=== PATIENT | male | born 1940 | race Caucasian/White ===

== ENCOUNTER 2016-06-17 03:21 | Inpatient (IN) | payer MEDICARE, OTHER ==
[2016-06-17] VITALS (10 sets, daily range): BP systolic 93–120; BP diastolic 55–80
[~2016-06-17] VITALS: Ht 182.9 cm; Wt 61.7 kg
--- NOTE | 2016-06-17 03:29 | Emergency Room Report ---
History of Present Illness General Chief Complaint: Dyspnea/Respdistress Source: Patient, Medical Record, EMS Present Illness HPI This is a 75-year-old male with a history of hypertension and CHF. He resided [facility]. He present with acute onset of shortness of breath that started tonight. Per EMS on arrival he was on nasal cannula 15 L. He was hypoxic. I place him on a mask and gave him a spray of nitroglycerin. Patient felt short of breath. No chest pain. Has chest pressure. No nausea no vomiting. No pain. Denies any other complaint. Worse with exertion. Allergies: Coded Allergies: GABAPENTIN (Verified Allergy, Unknown, 06/17/16) PREGABALIN (Verified Allergy, Unknown, 06/17/16) Patient History Past Medical History: see triage record, old chart reviewed, HTN, CAD, CHF Past Surgical History: other Pertinent Family History: none Social History: Denies: smoking Immunizations: other Reviewed Nursing Documentation: PMH: Agreed, PSxH: Agreed Review of Systems Eye: Denies: blurred vision, eye pain ENT: Denies: ear pain, nose congestion, throat swelling Respiratory: Reports: shortness of breath, Denies: cough Cardiovascular: Denies: chest pain, palpitations Gastrointestinal: Denies: abdominal pain, diarrhea, nausea, vomiting Musculoskeletal: Denies: back pain, joint pain Skin: Denies: rash Neurological: Denies: headache, numbness Endocrine: Denies: increased thirst, increased urine Hematologic/Lymphatic: Denies: easy bruising All Other Systems: negative except mentioned in HPI Physical Exam vitals with hypoxia Sp02 EP Interpretation: abnormal General Appearance: moderate distress, Chronically Ill Head: normocephalic, atraumatic Eyes: bilateral eye EOMI, bilateral eye PERRL ENT: hearing grossly normal, normal pharynx Neck: full range of motion, supple, no meningismus Respiratory: chest non-tender, decreased breath sounds, accessory muscle use, rales Cardiovascular #1: regular rate, rhythm, no murmur Gastrointestinal: normal bowel sounds, non tender, no mass, no organomegaly, no bruit, non-distended Musculoskeletal: back normal, other - Multiple pressure ulcers of the lower extremities. Neurologic: alert Psychiatric: mood/affect normal Skin: warm/dry Procedures Critical Care Time Critical Care Time Critical care is mandated in this patient who presented with respiratory distress from CHF. Patient require my urgent intervention to attenuate the risks of respiratory collapse which may lead to cardiovascular collapse and . Critical care time is 35 minutes excluding any reportable procedure. Critical care time included evaluation, multiple reevaluation, looking at old charts, interpreting laboratory and diagnostic data, discussing case with patient and family and consultants, and charting. Medical Decision Making Diagnostic Impression: Primary Impression: CHF exacerbation Qualified Codes: I50.9 - Heart failure, unspecified Additional Impressions: Acute respiratory failure with hypoxia Chronic kidney disease Qualified Codes: N18.9 - Chronic kidney disease, unspecified ER Course Patient presents with rest or distress and hypoxia. He has acute CHF on clinical exam and by laboratory data. He refuse the chest x-ray because he said he had many in the past. He is worried about getting cancer. He diuresed well with Lasix. Vitals are stable. We'll admit for further diuresis and monitoring. I will contact Dr. Buckley for admission. See no evidence of ACS, PE , dissection to name a few. Patient is competent to make decision to refuse chest x-ray. Lab Results Impression labs show elevated BNP EKG Diagnostic Results Rate: normal Rhythm: NSR ST Segments: no acute changes Rhythm Strip Diag. Results EP Interpretation: yes Rate: 65 Rhythm: NSR, no PVC's, no ectopy Chest X-Ray Diagnostic Results Findings: other - pt refused chest xrays Status: improved Disposition: ADMITTED INPATIENT Condition: Serious MATT COATS M.D. Jun 17, 2016 03:29
[2016-06-17] MEDS ORDERED: Aspirin Baby 81mg ORAL ONE (03:30)
[2016-06-17] MEDS ORDERED: Albuterol ud Inhalation HHN ONE (03:30)
[2016-06-17] MEDS ORDERED: COREG3.125 MG ORAL (03:38)
[2016-06-17] MEDS ORDERED: FUROSEMIDE20 M1 ORAL (03:38)
[2016-06-17] MEDS ORDERED: POTASSIUM GLUCO2 MEQ PO (03:38)
[2016-06-17] MEDS ORDERED: CRESTOR10 M2 ORAL (03:38)
[2016-06-17] MEDS ORDERED: CALCIUM MAGNES1 EAC2 PO (03:38)
[2016-06-17] MEDS ORDERED: NIACIN500 M3 PO (03:38)
[2016-06-17] MEDS ORDERED: COLACE100 MG ORAL (03:38)
[2016-06-17] MEDS ORDERED: VITAMIN B-12500 MC2 PO (03:38)
[2016-06-17] MEDS ORDERED: TAMSULOSIN HCL0.4 MG ORAL (03:38)
[2016-06-17] MEDS ORDERED: FOLIC ACID1 MG ORAL (03:38)
[2016-06-17] MEDS ORDERED: LEVOTHYROXINE100 MCG ORAL (03:38)
[2016-06-17] MEDS ORDERED: VITAMIN C250 MG ORAL (03:38)
[2016-06-17] MEDS ORDERED: ASPIR 8181 MG ORAL (03:38)
[2016-06-17] MEDS ORDERED: TYLENOL EXTRA500 MG ORAL (03:38)
[2016-06-17] MEDS ORDERED: MIRALAX17 G2 ORAL (03:38)
[2016-06-17] MEDS ORDERED: FERROUS SULFAT325 MG ORAL (03:38)
[2016-06-17 03:56] LABS: MEAN CORPUSCULAR HEMOGLOBIN 37.5 PG (27.0-31.0); MEAN CORPUSCULAR HGB CONC 37.8 G/DL (32.0-36.0); MEAN CORPUSCULAR VOLUME 99 FL (80-99); MEAN PLATELET VOLUME 10.9 FL (6.5-10.1); PLATELET COUNT 86 K/UL (150-450); RED BLOOD COUNT 3.25 M/UL (4.70-6.10); WHITE BLOOD COUNT 9.7 K/UL (4.8-10.8)
[2016-06-17 04:06] LABS: INR 1.3 (0.9-1.1); PROTHROMBIN TIME 13.2 SEC (9.30-11.50)
[2016-06-17 04:14] LABS: ALANINE AMINOTRANSFERASE 16 U/L (3-41); ALBUMIN/GLOBULIN RATIO 0.6 (1.0-2.7); ANION GAP 14 (5-15); ASPARTATE AMINO TRANSFERASE 20 U/L (5-40); CALCIUM 9.5 mg/dL (8.6-10.2); CARBON DIOXIDE 28 mEQ/L (20-30); CHLORIDE 97 mEQ/L (98-107); CREATININE 1.6 mg/dL (0.7-1.2); HEMOLYSIS 16; POTASSIUM 4.1 mEQ/L (3.4-4.9); SODIUM 139 mEQ/L (135-145); TOTAL PROTEIN 6.7 g/dL (6.6-8.7)
[2016-06-17 04:30] LABS: TROPONIN I < 0.30 ng/mL (<=0.30)
[2016-06-17 04:51] LABS: APPEARANCE,URINE CLEAR; KETONES,URINE NEGATIVE (NEGATIVE); PROTEIN,URINE 1+ (NEGATIVE)
[2016-06-17 04:52] LABS: BACTERIA,URINE FEW /HPF; LEUKOCYTE ESTERASE ,URINE NEGATIVE (NEGATIVE); NITRITE,URINE NEGATIVE (NEGATIVE); RBC,URINE 20-30 /HPF (0 - 0); SQUAMOUS EPITHELIAL CELL,UR FEW /LPF (NONE/OCC); UROBILINOGEN,URINE NORMAL MG/DL (0.0-1.0)
[2016-06-17 04:53] LABS: AMORPHOUS SEDIMENT,UR MODERATE /LPF
[2016-06-17] MEDS ORDERED: DuoNeb 0.5-3(2.5)mg/3ml neb HHN PRN ×2 (06:00→20:00)
[2016-06-17] MEDS ORDERED: Miralax 17gm pkt ORAL PRN ×2 (06:00→20:00)
[2016-06-17 07:13] LABS: CKMB 8.5 ng/mL (< 6.7)
[2016-06-17] MEDS: NovoLOG Insulin Flexpen SUBQ SCH ×4 (08:55→21:00)
[2016-06-17] MEDS ORDERED: Heparin 5000 units/ml inj SUBQ SCH (09:00)
[2016-06-17] MEDS ORDERED: Miralax 17gm pkt ORAL SCH (09:00)
--- NOTE | 2016-06-17 10:24 | Cardiology Progress Note ---
Assessment/Plan Assessment/Plan chf acute systolic cm mr phtn renal insuf s/p cardiorenal syndrome rbbbb dierutic moni acei if cr allow and if ok with renla coreg echo reviewed [id number] Objective Last 24 Hour Vital Signs Date Time Temp Pulse Resp B/P Pulse Ox O2 Delivery O2 Flow Rate FiO2 06/17/16 08:00 97.0 66 22 108/55 96 Nasal Cannula 5.0 06/17/16 07:06 63 15 109/73 100 Nasal Cannula 5.0 06/17/16 06:50 94.7 70 12 112/80 100 Nasal Cannula 5.0 40 06/17/16 06:03 94.7 70 12 112/80 100 Nasal Cannula 5.0 06/17/16 04:34 94.6 68 18 104/62 99 Nasal Cannula 5.0 06/17/16 03:48 65 16 95 Nasal Cannula 5.0 40 06/17/16 03:36 64 16 99 Non-Rebreather 15.0 100 06/17/16 03:30 68 20 Non-Rebreather 12.0 06/17/16 03:20 94.6 68 20 137/60 90 Room Air Intake and Output 06/16/16 06/17/16 19:00 07:00 Output Total 10 ml Balance -10 ml Output Urine Total 10 ml Laboratory Tests Test 06/17/16 03:40 06/17/16 04:10 White Blood Count 9.7 K/UL (4.8-10.8) Red Blood Count 3.25 M/UL (4.70-6.10) L Hemoglobin 12.2 G/DL (14.2-18.0) L Hematocrit 32.3 % (42.0-52.0) L Mean Corpuscular Volume 99 FL (80-99) Mean Corpuscular Hemoglobin 37.5 PG (27.0-31.0) H Mean Corpuscular Hemoglobin Concent 37.8 G/DL (32.0-36.0) H Red Cell Distribution Width 19.0 % (11.6-14.8) H Platelet Count 86 K/UL (150-450) L Mean Platelet Volume 10.9 FL (6.5-10.1) H Neutrophils (%) (Auto) % (45.0-75.0) Lymphocytes (%) (Auto) % (20.0-45.0) Monocytes (%) (Auto) % (1.0-10.0) Eosinophils (%) (Auto) % (0.0-3.0) Basophils (%) (Auto) % (0.0-2.0) Prothrombin Time 13.2 SEC (9.30-11.50) H Prothromb Time International Ratio 1.3 (0.9-1.1) H Activated Partial Thromboplast Time 40 SEC (23-33) H Sodium Level 139 mEQ/L (135-145) Potassium Level 4.1 mEQ/L (3.4-4.9) Chloride Level 97 mEQ/L (98-107) L Carbon Dioxide Level 28 mEQ/L (20-30) Anion Gap 14 (5-15) Blood Urea Nitrogen 58 mg/dL (7-23) H Creatinine 1.6 mg/dL (0.7-1.2) H Estimat Glomerular Filtration Rate mL/min (>60) Glucose Level 187 mg/dL (74-106) H Calcium Level 9.5 mg/dL (8.6-10.2) Total Bilirubin 1.8 mg/dL (0.0-1.2) H Direct Bilirubin 1.0 mg/dL (0.1-0.3) H Aspartate Amino Transf (AST/SGOT) 20 U/L (5-40) Alanine Aminotransferase (ALT/SGPT) 16 U/L (3-41) Alkaline Phosphatase 283 U/L (40-129) H Total Creatine Kinase 38 U/L (38-174) Creatine Kinase MB 8.5 ng/mL (< 6.7) H Creatine Kinase MB Relative Index 22.3 Troponin I < 0.30 ng/mL (<=0.30) Pro-B-Type Natriuretic Peptide 82639 pg/mL (0-450) H Total Protein 6.7 g/dL (6.6-8.7) Albumin 2.6 g/dL (3.5-5.2) L Globulin 4.1 g/dL Albumin/Globulin Ratio 0.6 (1.0-2.7) L Urine Color Yellow Urine Appearance Clear Urine pH 5.0 (4.5-8.0) Urine Specific [place] 1.010 (1.005-1.035) Urine Protein 1+ (NEGATIVE) H Urine Glucose (UA) Negative (NEGATIVE) Urine Ketones Negative (NEGATIVE) Urine Occult Blood 3+ (NEGATIVE) H Urine Nitrite Negative (NEGATIVE) Urine Bilirubin Negative (NEGATIVE) Urine Urobilinogen Normal MG/DL (0.0-1.0) Urine Leukocyte Esterase Negative (NEGATIVE) Urine RBC 20-30 /HPF (0 - 0) H Urine WBC 2-4 /HPF (0 - 0) Urine Squamous Epithelial Cells Few /LPF (NONE/OCC) Urine Amorphous Sediment Moderate /LPF (NONE) H Urine Bacteria Few /HPF (NONE) TAL DEE Jun 17, 2016 10:24
--- NOTE | 2016-06-17 10:32 | Consultation ---
History of Present Illness General Date patient seen: Jun 17, 2016 Chief Complaint: Dyspnea/Respdistress Referring physician: Dr. Irwin Reason for Consultation: Dyspnea Present Illness HPI 75-year-old male with a history of hypertension and CHF, [facility] in by paramedics with CC of acute onset of shortness of breath that started tonight. Per EMS on arrival he was on nasal cannula 15 L. He was hypoxic. He was placed on a mask and given spray of nitroglycerin in ER. He was recently discharged fro [facility]. He refused CXR in ER because of exposure to radiation. Pt improved somewhat with initial Lasix. Allergies: Coded Allergies: GABAPENTIN (Verified Allergy, Unknown, 06/17/16) PREGABALIN (Verified Allergy, Unknown, 06/17/16) Medication History Scheduled Ascorbic Acid* (Vitamin C*), Unknown Dose ORAL DAILY, (Reported) Aspirin* (Aspir 81*), Unknown Dose ORAL DAILY, (Reported) Carvedilol (Coreg), Unknown Dose ORAL EVERY 12 HOURS, (Reported) Docusate Sodium* (Colace*), 100 MG ORAL DAILY, (Reported) Ferrous Sulfate* (Ferrous Sulfate*), 325 MG ORAL DAILY, (Reported) Folic Acid* (Folic Acid*), 1 MG ORAL DAILY, (Reported) Furosemide* (Lasix*), Unknown Dose ORAL DAILY, (Reported) Levothyroxine Sodium* (Levothyroxine Sodium*), 100 MCG ORAL DAILY, (Reported) Polyethylene Glycol 3350* (Miralax*), 17 GM ORAL DAILY, (Reported) Rosuvastatin Calcium* (Crestor*), 10 MG ORAL DAILY, (Reported) Tamsulosin Hcl (Tamsulosin Hcl*), 0.4 MG ORAL BEDTIME, (Reported) Scheduled PRN Acetaminophen* (Tylenol Extra Strength*), 650 MG ORAL Q6H PRN for Mild Pain/ Temp > 100.5, (Reported) Miscellaneous Medications Ca Carb & Gluc/Mag Ox & Gluc (Calcium Magnesium Caplet), Unknown Dose PO, ( Reported) Cyanocobalamin (Vitamin B-12) (Vitamin B-12), 500 MCG PO, (Reported) Niacin (Niacin), 500 MG PO, (Reported) Potassium Gluconate (Potassium Gluconate), Unknown Dose PO, (Reported) Patient History Healthcare decision maker Resuscitation status Advanced Directive on File Past Medical/Surgical History Past Medical/Surgical History: (1) CHF (congestive heart failure) (2) Chronic kidney disease Review of Systems Respiratory: Reports: DIAZ, shortness of breath Skin: Reports: rash All Other Systems: negative except mentioned in HPI Physical Exam General Appearance: WD/WN, no apparent distress Lines, tubes and drains: peripheral, central line HEENT: normocephalic, anicteric Neck: non-tender Respiratory/Chest: rhonchi - left, rhonchi - right Cardiovascular/Chest: normal peripheral pulses, normal rate Genitourinary/Rectal: normal genital exam Last 24 Hour Vital Signs Date Time Temp Pulse Resp B/P Pulse Ox O2 Delivery O2 Flow Rate FiO2 06/17/16 08:00 97.0 66 22 108/55 96 Nasal Cannula 5.0 06/17/16 07:06 63 15 109/73 100 Nasal Cannula 5.0 06/17/16 06:50 94.7 70 12 112/80 100 Nasal Cannula 5.0 40 06/17/16 06:03 94.7 70 12 112/80 100 Nasal Cannula 5.0 06/17/16 04:34 94.6 68 18 104/62 99 Nasal Cannula 5.0 06/17/16 03:48 65 16 95 Nasal Cannula 5.0 40 06/17/16 03:36 64 16 99 Non-Rebreather 15.0 100 06/17/16 03:30 68 20 Non-Rebreather 12.0 06/17/16 03:20 94.6 68 20 137/60 90 Room Air Intake and Output 06/16/16 06/17/16 19:00 07:00 Output Total 10 ml Balance -10 ml Output Urine Total 10 ml Laboratory Tests Test 06/17/16 03:40 06/17/16 04:10 White Blood Count 9.7 K/UL (4.8-10.8) Red Blood Count 3.25 M/UL (4.70-6.10) L Hemoglobin 12.2 G/DL (14.2-18.0) L Hematocrit 32.3 % (42.0-52.0) L Mean Corpuscular Volume 99 FL (80-99) Mean Corpuscular Hemoglobin 37.5 PG (27.0-31.0) H Mean Corpuscular Hemoglobin Concent 37.8 G/DL (32.0-36.0) H Red Cell Distribution Width 19.0 % (11.6-14.8) H Platelet Count 86 K/UL (150-450) L Mean Platelet Volume 10.9 FL (6.5-10.1) H Neutrophils (%) (Auto) % (45.0-75.0) Lymphocytes (%) (Auto) % (20.0-45.0) Monocytes (%) (Auto) % (1.0-10.0) Eosinophils (%) (Auto) % (0.0-3.0) Basophils (%) (Auto) % (0.0-2.0) Prothrombin Time 13.2 SEC (9.30-11.50) H Prothromb Time International Ratio 1.3 (0.9-1.1) H Activated Partial Thromboplast Time 40 SEC (23-33) H Sodium Level 139 mEQ/L (135-145) Potassium Level 4.1 mEQ/L (3.4-4.9) Chloride Level 97 mEQ/L (98-107) L Carbon Dioxide Level 28 mEQ/L (20-30) Anion Gap 14 (5-15) Blood Urea Nitrogen 58 mg/dL (7-23) H Creatinine 1.6 mg/dL (0.7-1.2) H Estimat Glomerular Filtration Rate mL/min (>60) Glucose Level 187 mg/dL (74-106) H Calcium Level 9.5 mg/dL (8.6-10.2) Total Bilirubin 1.8 mg/dL (0.0-1.2) H Direct Bilirubin 1.0 mg/dL (0.1-0.3) H Aspartate Amino Transf (AST/SGOT) 20 U/L (5-40) Alanine Aminotransferase (ALT/SGPT) 16 U/L (3-41) Alkaline Phosphatase 283 U/L (40-129) H Total Creatine Kinase 38 U/L (38-174) Creatine Kinase MB 8.5 ng/mL (< 6.7) H Creatine Kinase MB Relative Index 22.3 Troponin I < 0.30 ng/mL (<=0.30) Pro-B-Type Natriuretic Peptide 18823 pg/mL (0-450) H Total Protein 6.7 g/dL (6.6-8.7) Albumin 2.6 g/dL (3.5-5.2) L Globulin 4.1 g/dL Albumin/Globulin Ratio 0.6 (1.0-2.7) L Urine Color Yellow Urine Appearance Clear Urine pH 5.0 (4.5-8.0) Urine Specific [place] 1.010 (1.005-1.035) Urine Protein 1+ (NEGATIVE) H Urine Glucose (UA) Negative (NEGATIVE) Urine Ketones Negative (NEGATIVE) Urine Occult Blood 3+ (NEGATIVE) H Urine Nitrite Negative (NEGATIVE) Urine Bilirubin Negative (NEGATIVE) Urine Urobilinogen Normal MG/DL (0.0-1.0) Urine Leukocyte Esterase Negative (NEGATIVE) Urine RBC 20-30 /HPF (0 - 0) H Urine WBC 2-4 /HPF (0 - 0) Urine Squamous Epithelial Cells Few /LPF (NONE/OCC) Urine Amorphous Sediment Moderate /LPF (NONE) H Urine Bacteria Few /HPF (NONE) Height (Feet): 6 Weight (Pounds): 136 Medications Current Medications Medications (Trade) Dose Ordered Sig/Jazmyne Route PRN Reason Start Time Stop Time Status Last Admin Dose Admin Acetaminophen (Tylenol) 650 mg Q4H PRN ORAL Fever 06/17/16 06:00 07/17/16 05:59 Albuterol/ Ipratropium (DuoNeb 0.5-3(2.5)mg/3ml) 3 ml EVERY 4 HOURS PRN HHN Shortness of Breath 06/17/16 06:00 06/22/16 05:59 Carvedilol (Coreg) 6.25 mg EVERY 12 HOURS ORAL 06/17/16 09:00 07/17/16 08:59 Dextrose (Dextrose 50%) STAT PRN IV Hypoglycemia 06/17/16 06:00 07/17/16 05:59 Furosemide (Lasix) 40 mg EVERY 8 HOURS IV 06/17/16 06:00 07/17/16 05:59 Heparin Sodium (Porcine) (Heparin 5000 units/ml) 5,000 units EVERY 12 HOURS SUBQ 06/17/16 09:00 07/17/16 08:59 UNV Insulin Aspart (NovoLOG) BEFORE MEALS AND HS SUBQ 06/17/16 06:30 07/17/16 06:29 06/17/16 08:55 Ondansetron HCl (Zofran) 4 mg Q6H PRN IVP Nausea & Vomiting 06/17/16 06:00 07/17/16 05:59 Polyethylene Glycol (Miralax) 17 gm DAILY ORAL 06/17/16 09:00 07/17/16 08:59 Polyethylene Glycol (Miralax) 17 gm DAILYPRN PRN ORAL Constipation 06/17/16 06:00 07/17/16 05:59 Tamsulosin HCl (Flomax) 0.4 mg BEDTIME ORAL 06/17/16 21:00 07/17/16 20:59 Temazepam (Restoril) 15 mg HSPRN PRN ORAL Insomnia 06/17/16 06:00 06/24/16 05:59 Assessment/Plan Problem List: (1) Acute respiratory failure with hypoxia ICD Codes: J96.01 - Acute respiratory failure with hypoxia SNOMED: 92887073, 462032313 (2) CHF exacerbation ICD Codes: I50.9 - Heart failure, unspecified SNOMED: 42931271, [id number] Qualifiers: Qualified Codes: I50.9 - Heart failure, unspecified (3) Cellulitis ICD Codes: L03.90 - Cellulitis, unspecified SNOMED: [id number] Qualifiers: (4) Chronic kidney disease ICD Codes: N18.9 - Chronic kidney disease, unspecified SNOMED: 572021728, 952714636 Qualifiers: Qualified Codes: N18.9 - Chronic kidney disease, unspecified Assessment/Plan diuretics echo titrate fio2 Vanco for cellulitis of legs wound care renal evaluation f/u electrolytes dvt prophylaxis IJEOMA ALMARAZ Jun 17, 2016 10:32
[2016-06-17 11:35] LABS: ALANINE AMINOTRANSFERASE 14 U/L (3-41); ALBUMIN/GLOBULIN RATIO 0.5 (1.0-2.7); ANION GAP 13 (5-15); ASPARTATE AMINO TRANSFERASE 18 U/L (5-40); CALCIUM 9.5 mg/dL (8.6-10.2); CARBON DIOXIDE 30 mEQ/L (20-30); CHLORIDE 98 mEQ/L (98-107); CREATININE 1.7 mg/dL (0.7-1.2); HEMOLYSIS 5; MAGNESIUM 2.1 mg/dL (1.7-2.5); PHOSPHORUS 3.8 mg/dL (2.5-4.8); POTASSIUM 3.9 mEQ/L (3.4-4.9); SODIUM 141 mEQ/L (135-145); TOTAL PROTEIN 6.7 g/dL (6.6-8.7)
[2016-06-17] MEDS ORDERED: Vancomycin 750mg/D5W 275ml IVPB SCH ×2 (12:00)
[2016-06-17 12:02] LABS: BILIRUBIN,DIRECT 0.9 mg/dL (0.1-0.3)
[2016-06-17] MEDS ORDERED: LORazepam Inj 2mg/ml 1ml IV PRN ×2 (12:30→21:00)
--- NOTE | 2016-06-17 14:15 | Consultation ---
Consult Note Consult Note asked to evaluate for renal failure- Chief Complaint: Dyspnea / Resp distress HPI This is a 75-year-old male with a history of hypertension and CHF. He resided [facility] He present with acute onset of shortness of breath that started tonight. Per EMS on arrival he was on nasal cannula 15 L. He was hypoxic. I place him on a mask and gave him a spray of nitroglycerin. Patient felt short of breath. No chest pain. Has chest pressure. No nausea no vomiting. No pain. Denies any other complaint. Worse with exertion. Allergies: GABAPENTIN (Verified Allergy, Unknown, 06/17/16) PREGABALIN (Verified Allergy, Unknown, 06/17/16) Past Medical History: see triage record, old chart reviewed, HTN, CAD, CHF cc:: shortness of breath, Denies: cough Patient admitted with the diagnosis of CHF Assessment/Plan status: Acute on Chronic Kidney disease Acute respiratory failure with hypoxia CHF exacerbation Cellulitis HypoThyroidism TSH 35 Plan: diuretics echo titrate fio2 Vanco for cellulitis of legs wound care monitor renal parameters- Avoid nephrotoxics OZIEL CHAPMAN Jun 17, 2016 14:15
--- NOTE | 2016-06-17 14:38 | Wound Care Consultation ---
Wound Assessment Wound Assessment #1: Wound Number: #1 Wound Present on Admission: Yes New Wound: No Status Change of Wound: No Wound Location Body Site Modif: lower Wound Location Body Site: other - spine Wound Type: pressure ulcer Rex Test: Does not Rex Pressure Ulcer Stage: deep tissue injury Wound Thickness: Full Thickness Wound Length: 5.0 Wound Width: 1.0 Wound Depth: utd Percent of Wound [place]/Red: 50 Percent of Wound Purple/Maroon: 50 Wound Drainage Amount: None Wound Drainage Odor: None/Absent Tissue Surrounding Wound: Erythemic Wound General Appearance: Reddened, Open to air Wound Assessment #2: Wound Number: #2 Wound Present on Admission: Yes New Wound: No Status Change of Wound: No Wound Location Body Site Modif: mid Wound Location Body Site: sacral Wound Type: pressure ulcer Rex Test: Does not Rex Pressure Ulcer Stage: deep tissue injury Wound Thickness: Full Thickness Wound Length: 8.0 Wound Width: 8.0 Wound Depth: utd Percent of Wound Purple/Maroon: 100 Wound Drainage Amount: None Wound Drainage Odor: None/Absent Tissue Surrounding Wound: Erythemic Wound General Appearance: Reddened, Open to air Wound Assessment #3: Wound Number: #3 Wound Present on Admission: Yes New Wound: No Status Change of Wound: No Wound Location Body Site Modif: left Wound Location Body Site: knee Wound Type: other - clustered open and closed wound, cellulitis Rex Test: Does not Rex Wound Thickness: Full Thickness Percent of Wound Bed Yellow/Wh: 50 Percent of Wound Black/Brown: 50 Wound Drainage Amount: None Wound Drainage Odor: None/Absent Tissue Surrounding Wound: Erythemic Wound General Appearance: Reddened, Blackened - scabs Wound Assessment #4: Wound Number: #4 Wound Present on Admission: Yes New Wound: No Status Change of Wound: No Wound Location Body Site Modif: left, lower Wound Location Body Site: leg Wound Type: other - scattered Diabetic ulcers/cellulitis Rex Test: Does not Rex Wound Thickness: Full Thickness Percent of Wound Bed Yellow/Wh: 50 Percent of Wound Black/Brown: 50 Wound Drainage Amount: None Wound Drainage Odor: None/Absent Tissue Surrounding Wound: Erythemic Wound General Appearance: Reddened, Blackened - scatteres yellow and brown/ black scabs Wound Assessment #5: Wound Number: #5 Wound Present on Admission: Yes New Wound: No Status Change of Wound: No Wound Location Body Site Modif: left, medial Wound Location Body Site: malleolus/ankle Wound Type: other - Diabetic ulcer, cellulitis Rex Test: Does not Rex Wound Thickness: Full Thickness Wound Length: 4.0 Wound Width: 4.0 Wound Depth: utd Percent of Wound Bed Yellow/Wh: 50 Percent of Wound Black/Brown: 50 Wound Drainage Amount: None Wound Drainage Odor: None/Absent Tissue Surrounding Wound: Erythemic Wound General Appearance: Reddened, Necrotic Wound Assessment #6: Wound Number: #6 Wound Present on Admission: Yes New Wound: No Status Change of Wound: No Wound Location Body Site Modif: left Wound Location Body Site: toe - 1st Wound Type: other - diabetic ulcer Rex Test: Does not Rex Wound Thickness: Full Thickness Wound Length: 1.0 Wound Width: 1.0 Wound Depth: utd Percent of Wound Bed Yellow/Wh: 50 Percent of Wound Black/Brown: 50 Wound Drainage Amount: None Wound Drainage Odor: None/Absent Tissue Surrounding Wound: Erythemic Wound General Appearance: Reddened, Necrotic Wound Assessment #7: Wound Number: #7 Wound Present on Admission: Yes New Wound: No Status Change of Wound: No Wound Location Body Site Modif: left Wound Location Body Site: toe - 2nd Wound Type: other - Diabetic ulcer Rex Test: Does not Rex Wound Thickness: Full Thickness Wound Length: 1.5 Wound Width: 1.0 Wound Depth: utd Percent of Wound Bed Yellow/Wh: 50 Percent of Wound Black/Brown: 50 Wound Drainage Amount: None Wound Drainage Odor: None/Absent Tissue Surrounding Wound: Erythemic Wound General Appearance: Reddened, Necrotic Wound Assessment #8: Wound Number: #8 Wound Present on Admission: Yes New Wound: No Status Change of Wound: No Wound Location Body Site Modif: left, plantar Wound Location Body Site: toe - 5th Wound Type: other - Diabetic ulcer Rex Test: Does not Rex Wound Thickness: Full Thickness Wound Length: 1.5 Wound Width: 1.0 Wound Depth: utd Percent of Wound Bed Yellow/Wh: 50 Percent of Wound Black/Brown: 50 Wound Drainage Amount: None Wound Drainage Odor: None/Absent Tissue Surrounding Wound: Erythemic Wound General Appearance: Reddened, Necrotic Wound Assessment #9: Wound Number: #9 Wound Present on Admission: Yes New Wound: No Status Change of Wound: No Wound Location Body Site Modif: left, plantar Wound Location Body Site: metatarsal head - 5th Wound Type: other - Diabetic ulcer Rex Test: Does not Rex Wound Thickness: Full Thickness Wound Length: 1.0 Wound Width: 1.0 Wound Depth: utd Percent of Wound Bed Yellow/Wh: 50 Percent of Wound Black/Brown: 50 Wound Drainage Amount: None Wound Drainage Odor: None/Absent Tissue Surrounding Wound: Erythemic Wound General Appearance: Reddened, Necrotic Wound Assessment #10: Wound Number: #10 Wound Present on Admission: Yes New Wound: No Status Change of Wound: No Wound Location Body Site Modif: right, lower Wound Location Body Site: leg Wound Type: other - scattered open and closed Diabetic ulcers, cellulitis Rex Test: Does not Rex Wound Thickness: Full Thickness Percent of Wound [place]/Red: 10 Percent of Wound Bed Yellow/Wh: 40 Percent of Wound Black/Brown: 50 Wound Drainage Description: Serosanguineous Wound Drainage Amount: Scant Wound Drainage Odor: None/Absent Tissue Surrounding Wound: Erythemic Wound General Appearance: Reddened, Draining, Necrotic Wound Assessment #11: Wound Number: #11 Wound Present on Admission: Yes New Wound: No Status Change of Wound: No Wound Location Body Site Modif: right Wound Location Body Site: knee Wound Type: scab - clustered scabs Rex Test: Does not Rex Wound Thickness: Full Thickness Percent of Wound Bed Yellow/Wh: 100 - yellow dry scabs Wound Drainage Amount: None Wound Drainage Odor: None/Absent Tissue Surrounding Wound: Erythemic Wound General Appearance: Reddened, Necrotic - yellow dry scabs Wound Assessment #12: Wound Number: #12 Wound Present on Admission: Yes New Wound: No Status Change of Wound: No Wound Location Body Site Modif: right Wound Location Body Site: toe - 1st Wound Type: other - Diabetic ulcer Rex Test: Does not Rex Wound Thickness: Full Thickness Wound Length: 1.5 Wound Width: 1.0 Wound Depth: utd Percent of Wound Bed Yellow/Wh: 50 Percent of Wound Black/Brown: 50 Wound Drainage Amount: None Wound Drainage Odor: None/Absent Tissue Surrounding Wound: Erythemic Wound General Appearance: Reddened, Blackened - 50% black scab, 50% yellow scab Wound Assessment #13: Wound Number: #13 Wound Present on Admission: Yes New Wound: No Status Change of Wound: No Wound Location Body Site Modif: right, lateral Wound Location Body Site: heel Wound Type: other - Diabetic ulcer Rex Test: Does not Rex Wound Thickness: Full Thickness Wound Length: 6.5 Wound Width: 5.5 Wound Depth: utd Percent of Wound [place]/Red: 10 Percent of Wound Bed Yellow/Wh: 30 Percent of Wound Black/Brown: 50 Percent of Wound Purple/Maroon: 10 Wound Drainage Description: Serosanguineous Wound Drainage Amount: Moderate Wound Drainage Odor: Mild Odor Tissue Surrounding Wound: Macerated Wound General Appearance: Reddened, Blackened, Bleeding, Draining, Necrotic Wound Comment R#1 Posterior spine deep tissue injury. #2 Sacral pressure deep tissue injury. #3 Left knee clustered open and closed wounds, Cellulitis. #4 Left lower extremity scattered Diabetic ulcers, Cellulitis. #5 Left medial malleolus Diabetic ulcer. #6 Left 1st toe Diabetic ulcer. #7 Left 2nd toe Diabetic ulcer. #8 Left 5th plantar toe Diabetic ulcer. #9 Left 5th plantar metatarsal head Diabetic ulcer. #10 Right lower extremity scattered Diabetic ulcer,Cellulitis. #11 Right knee clustered scabs. #12 Right 1st toe Diabetic ulcer. #13 Right lateral heel Diabetic ulcer. Recommendation -FOLLOW UP WITH MD FOR POSSIBLE PODIATRY OR VASCULAR CONSULT. -Apply Low air loss overlay mattress (spr) -Local wound care as ordered. -Keep clean and dry. -Optimize nutrition. -Heel protectors. -Offload heels and feet. -Avoid shear and friction. -Assess and notify MD if any changes of condition are noted. OSKAR KELLY Jun 17, 2016 14:38
--- NOTE | 2016-06-17 16:16 | Consultation ---
Consult Note Consult Note ID CONSULT: Yinka# [id number] Assessment/Plan ASSESSMENT: 75 y/o male with: // BLE cellulitis / chronic right heel ulcer, probable osteomyelitis // Afebrile without leukocytosis // Dyspnea ?CHF exacerbation ( elevated BNP ) - improved, refused CXR // ICMO, EF 20-25%, mod MR, TR, mild pulmonary HTN - [facility] cardiology has recommended LHC prior to any potential anesthesia, high risk surgical candidate // PAD // CKD // Abnl TFTs // TCP // Noncompliance // No ABX allergies // Full Code PLAN: - unlikely cure with IV ABX given severe PAD, low cardiac output, not currently a surgical candidate. IV ABX futile. Recommend PO suppressive bactrim, augmentin , topical wound care - check ESR, CRP - monitor CBC, temperatures - monitor BMP - wound care - LHC, re-vascularization if pt agrees d/w Dr. Schofield Thanks! Will follow LIO LEMUS Jun 17, 2016 16:15
--- NOTE | 2016-06-17 16:32 | Consultation ---
Consult Note Assessment/Plan A/ 1) Severe PVD RLE from [facility] 02/05/2016 2) Ischemic right heel ulcer 3) Nonpressure ulcers multiple bilateral LE - mainly superficial 4) DM 5) Diabetic Neuropathy 6) h/o Noncompliance P/ 1) Patient is a poor surgical candidate 2/2 his cardiac status. 2) Medical optimization 3) Vasc consult ? 4) Cont current wound care 5) Cont off loading 6) D/W ID, will work up for osteo 7) Will follow Thank you Imer Samson DPM Jun 17, 2016 16:32
--- NOTE | 2016-06-17 17:02 | Diagnostic Imaging Report ---
Indication: Abnormal renal function tests Technique: Grayscale and duplex images of the kidneys, retroperitoneum, and bladder were obtained. Comparison:None Findings: Right kidney measures 11.8 cm in length. Left kidney measures 8.2 cm in length. Right kidney demonstrates normal echogenicity. Left kidney demonstrates increased echogenicity and cortical thinning. No hydronephrosis. There is questionably a calcification within the left renal sinus.. Normal inferior vena cava. Bladder is nondistended. Shadowing calcification is seen posterior to the bladder, possibly within the prostate. Per technologist, this area is difficult to visualize as patient unable to cooperate optimally. There is ascites fluid present. There are bilateral large pleural effusions incidentally noted. Also incidentally noted is an echogenic 15 mm mass within the liver, probably in segment 4A Impression: Atrophic echogenic left kidney, consistent with chronic renal disease. Unilaterality raises possibility of unilateral renal artery stenosis as etiology Negative for hydronephrosis Possible nonobstructive left renal calculus 15 mm echogenic mass within the liver, probably segment 4A. Likely but not definitively a benign hemangioma. Consider further evaluation with liver MRI as clinically indicated Incidental findings of ascites and pleural effusions Possible enlarged calcified prostate, area not well visualized.
[2016-06-17 17:23] LABS: ABG ALLEN TEST POSITIVE; ABG BASE EXCESS 4.2; ABG PCO2 65.5 mmHg (35.0-45.0)
[2016-06-17 20:45] LABS: ABG BASE EXCESS 7.2; ABG PCO2 61.7 mmHg (35.0-45.0)
--- NOTE | 2016-06-17 20:58 | Consultation ---
DATE OF CONSULTATION: 06/17/2016 CARDIOLOGY CONSULTATION CONSULTING PHYSICIAN: Skyler Shin M.D. REFERRING PHYSICIAN: 1. Philippe Buckley M.D. 2. Katrin Charles M.D. REASON FOR REFERRAL: Congestive heart failure. HISTORY OF PRESENT ILLNESS: This is an elderly gentleman, who is a [facility], was anxious to go back to the facility. Apparently, he called the paramedics. At least the social media specialist run sheet indicated that the patient was complaining of shortness of breath. They found him to have rales and rhonchi for approximately 40 minutes [facility] states normally . He actually denied chest pain to them. He apparently was felt to be hot to touch, bedbound. They did give him some nitroglycerin for whatever reason and it dropped his blood pressure apparently. The patient denies any chest pain or pressure or tightness at this time. He has shortness of breath and he uses two pillows he tells me. He has had PND episodes. On questioning, he does have dizziness on sitting and some palpitations as well. He previously had ejection fraction of 27% at [facility] with pulmonary hypertension and pulmonary systolic pressures in the 70s and he has had abnormal electrocardiograms on previous occasions. There are no records of prior stress testing. PAST MEDICAL HISTORY: His past medical history was obtained from review of the [facility] records where the patient was in February 2016. At that time, he had active problems with diabetes mellitus, chronic kidney disease, cardiorenal syndrome, hypothyroidism, secondary hyperparathyroidism, and hematuria. He does have nephrolithiasis, low back pain, and severe spinal stenosis. FAMILY HISTORY: Negative for premature coronary disease or CVA. SOCIAL HISTORY: He had smoked quarter of pack per day for 25 years, quit in 1970s. No alcohol. No drugs. 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 REVIEW OF SYSTEMS: Gastrointestinal: He has had some nausea. No vomiting. No diarrhea. No bloody stools or black tarry. Genitourinary: He denies any burning on urination. Pulmonary: He does admit to cough and sputum production. He describes the sputum is cross. Constitutional: He denies any fevers, chills, or night sweats. Neurologic: He denies. PHYSICAL EXAMINATION: GENERAL: The patient is an elderly gentleman, in no apparent respiratory distress, although he has some perioral cyanosis. LUNGS: Decreased breath sounds on the left base as well as some rhonchi and some crackles at the bases. CARDIAC: Regular rate and rhythm. No heaves or thrills noted. There is a faint holosystolic regurgitation murmur noted. ABDOMEN: Soft and nontender. Positive bowel sounds. EXTREMITIES: There is significant edema in lower extremities going up all the way up to the thighs. NEUROLOGICAL: He is awake, responsive. I am not sure how oriented he is actually. LABORATORY AND DIAGNOSTIC DATA: His electrocardiogram shows poor tracing, but appears to show sinus rhythm with right bundle-branch conduction defect with secondary ST-segment changes and in direct comparison with data from [facility] appears that it is not significantly changed from his prior EKGs at [facility] back in February 2016. Other labs, white count 9.7, hemoglobin 12.2, and platelet count of 86,000. Sodium 139, potassium 4.1, chloride 97, bicarbonate 28, BUN of 58, creatinine 1.2, and glucose 186. His alkaline phosphatase is 283. ProBNP of 29,000. Troponin is less than 0.03. Otherwise, liver function tests are normal. INR is 1.3 and a PTT of 30. Urinalysis shows 20 to 30 RBCs and 2-4 WBCs. He has had a chest x-ray, which I am not able to pull up to review. ASSESSMENT AND PLAN: 1. Congestive heart failure. 2. Cardiomyopathy. 3. Mitral regurgitation. 4. Renal insufficiency. 5. Right bundle-branch conduction defect. 6. Pulmonary hypertension. 7. History of cardiorenal syndrome. 8. Hyperlipidemia. Dr. Buckley, this patient was seen in cardiac consultation. I would recommend administration of diuretics intravenously and continuation of afterload reduction with SHAHRAM inhibitors as well as continuation of beta-blockers if the heart rate allows. He has been on oxygen at the convalescent facility and that will be continued with sliding scale of insulin. He is on potassium as well as Coreg at the convalescent facility. Those will be continued, and further recommendations as become necessary. The echocardiogram, which was being performed when I arrived and had a chance to review, parts of the images as well looks ejection fraction of probably about 25% with moderate mitral regurgitation as well as some degree of pulmonary hypertension in the 40s to 50s range at least was noted during that. Skyler Shin M.D. DR: COLEEN JOB#: [id number] CC:
[2016-06-17] MEDS: DOPamine 400mg/250ml 250 ML IV SCH (21:00)
[2016-06-17] MEDS: Tamsulosin 0.4mg cap ORAL SCH (21:00)
[2016-06-17] MEDS ORDERED: Tamsulosin 0.4mg cap ORAL SCH (21:00)
[2016-06-17 22:01] LABS: TROPONIN I < 0.30 ng/mL (<=0.30)
--- NOTE | 2016-06-17 22:48 | Consultation ---
DATE OF CONSULTATION: 06/17/2016 INFECTIOUS DISEASE CONSULTATION CONSULTING PHYSICIAN: Philippe Buckley M.D. REFERRING PHYSICIAN: Kwadwo Bhardwaj M.D. REASON FOR CONSULTATION: Chronic ulcer. HISTORY OF PRESENT ILLNESS: This is a 75-year-old male with multiple medical problems including ischemic cardiomyopathy and peripheral arterial disease, admitted on 06/16/2016 with shortness of breath. The patient is being treated for presumed CHF exacerbation and he refused chest x-ray. He is afebrile without leukocytosis. He was noted to have bilateral lower extremity cellulitis and multiple decubitus, worse ulcer being on the right heel. Review of [facility] medical records revealed severe peripheral arterial disease and ischemic cardiomyopathy, for which Cardiology consultation has recommended a left heart catheterization prior to any Anesthesia. He has been started on empiric vancomycin and ID now consulted to assist in management. PAST MEDICAL HISTORY: 1. Hypertension. 2. Ischemic cardiomyopathy. 3. Severe peripheral arterial disease. 4. Chronic kidney disease. 5. Thrombocytopenia. PAST SURGICAL HISTORY: Unknown. FAMILY HISTORY: Unknown. SOCIAL HISTORY: Unknown. ALLERGIES: 1. Gabapentin. 2. Lyrica. MEDICATIONS: 1. Vancomycin. 2. Lasix. 3. Flomax. 4. Coreg. REVIEW OF SYSTEMS: Unable to obtain. PHYSICAL EXAMINATION: VITAL SIGNS: Maximum temperature 97, blood pressure 114/62, heart rate in the 60s, respiratory rate 23, and saturating 98% on 5 liters nasal cannula. GENERAL: In no apparent distress, lethargic. CARDIOVASCULAR: Regular rate and rhythm. No murmurs. PULMONARY: Clear to auscultation bilaterally. ABDOMINAL: Bowel sounds present. Soft, nondistended, and nontender. EXTREMITIES: Multiple superficial scabs. Cool feet. Right heel ulcer bandaged. LABORATORY DATA: White blood cell count 9.7, hemoglobin 12.2, and platelets 86,000. Sodium 141, potassium 3.9, chloride 98, bicarbonate 30, BUN 59, and creatinine 1.7. Uric acid 8. AST 18, ALT 14, alkaline phosphatase 263, total bilirubin 1.6, and albumin 2.5. Troponin negative x1. BNP 29,024. MICROBIOLOGY: None. IMAGIN. On 06/17/2016, bilateral lower extremity Doppler ultrasound negative for DVT. 2. On 06/16/2016, echocardiogram, ejection fraction 20% to 25% with moderate mitral and tricuspid regurgitation, and mild pulmonary hypertension. ASSESSMENT: 1. Bilateral lower extremity cellulitis/chronic right heel ulcer and probable osteomyelitis. 2. Afebrile without leukocytosis. 3. Dyspnea, probable congestive heart failure exacerbation with elevated BNP. Breathing has improved. Chest x-ray was refused. 4. Ischemic cardiomyopathy with an ejection fraction of 20% to 25%, and associated moderate mitral and tricuspid regurgitation, and mild pulmonary hypertension. Cardiology evaluation at [facility] had recommended left heart catheterization prior to any potential anesthesia. 5. Severe peripheral arterial disease. 6. Chronic kidney disease. 7. Abnormal thyroid function tests. 8. Thrombocytopenia. 9. Noncompliance. 10. No antibiotic allergies. 11. Full Code. PLAN: 1. I am not quite sure of IV antibiotics given severe peripheral arterial disease and low cardiac output and currently not a surgical candidate. Therefore, IV antibiotics are futile. Recommend oral suppressive Bactrim and Augmentin in association with topical wound care. 2. Check ESR and CRP. 3. Monitor CBC and temperatures. 4. Monitor BNP. 5. Wound care. 6. Left heart catheterization and revascularization if the patient agrees. 7. Discussed with Dr. Schofield. Thank you. We will follow. Kwadwo Bhardwaj M.D. DR: AARON JOB#: [id number] CC: Philippe Buckley M.D.; Fax#: [phone] Navarrete M.D ; Fax#: [phone]
--- NOTE | 2016-06-17 22:58 | History and Physical Report ---
DATE OF ADMISSION: 06/17/2016 CHIEF COMPLAINT: The patient is a 75-year-old white male, presents with chief complaint of shortness of breath. HISTORY OF PRESENT ILLNESS: The patient is a resident of [facility]. According to staff, the patient became acutely short of breath on 06/17/2016. The patient was transported to [place] emergency room. The patient refused a chest x-ray in the emergency room. An initial BNP was elevated to 29,024. The patient was admitted for acute exacerbation of congestive heart failure. Please note the patient himself is unable to contribute much to the history and physical as he is on a 100% non-rebreather mask at the present. REVIEW OF SYSTEMS: Unable to assess, secondary to the patient being on a 100% non-rebreather mask. PAST MEDICAL HISTORY: 1. Peripheral vascular disease. 2. Chronic renal failure. 3. Congestive heart failure. 4. History of hypothyroidism. PAST SURGICAL HISTORY: Unknown. MEDICATIONS: Current medications from [facility], 1. Aspirin 81 mg one tablet p.o. daily. 2. Calcium magnesium one tablet p.o. daily. 3. Folic acid 1 mg one tablet p.o. daily. 4. Lasix 40 mg one tablet p.o. daily. 5. Crestor 10 mg one tablet p.o. daily. 6. Flomax 0.4 mg one tablet p.o. daily. 7. Vitamin C 1000 mg p.o. daily. 8. Niacin 500 mg one tablet p.o. daily. 9. Vitamin D3 5000 units p.o. daily. 10. Levoxyl 0.1 mg one tablet p.o. daily. 11. Iron sulfate 325 mg one tablet p.o. daily. 12. Carvedilol 3.125 mg one tablet p.o. daily. 13. Potassium gluconate one tablet p.o. daily. 14. Multivitamin daily. ALLERGIES: 1. Neurontin. 2. Lyrica. SOCIAL HISTORY: The patient is a resident of [facility]. The patient denies current tobacco or alcohol use. PHYSICAL EXAMINATION: VITAL SIGNS: Temperature is 96.5 and 97.0, respirations 19 to 22, and blood pressure 108 to 114/55 to 73. GENERAL: The patient is a thin appearing white male, who is currently on a non-rebreather, in moderate respiratory distress. HEENT: Eyes, pupils are equal and responsive to light and accommodation. Extraocular movements are intact. NECK: Supple without lymphadenopathy. CHEST: Lungs are clear to auscultation. Diffuse crackles heard in the bilateral bases with expiratory wheezing. ABDOMEN: Soft, nontender, and nondistended. Positive bowel sounds. No evidence of hepatosplenomegaly. No rebound or guarding noted. EXTREMITIES: Negative for clubbing, cyanosis, or edema. RECTAL/GENITAL: Refused. There is a right heel ulcer present. NEUROLOGIC: Cranial nerves II through XII are grossly intact without focal deficits. Motor strength is 5/5 bilaterally. Deep tendon reflexes are 2+ plantar. LABORATORY STUDIES: WBC 9.7, hemoglobin 12.2, hematocrit 32.3, and platelets 86,000. Sodium 139, potassium 4.1, chloride 97, CO2 28, BUN 58, creatinine 1.6, and glucose 187. Troponin was less than 0.3. BNP was elevated at 29,024. ASSESSMENT: This is a 75-year-old white male with, 1. Acute on chronic exacerbation of congestive heart failure. 2. Shortness of breath. 3. Ischemic right heel ulcer. 4. Peripheral vascular disease. 5. Chronic renal failure. 6. Congestive heart failure. 7. Hypertension. 8. Coronary artery disease. 9. Hypercholesterolemia. 10. Benign prostatic hypertrophy. TREATMENT: 1. Shortness of breath/congestive heart failure. Cardiology consultation was obtained with Dr. Skyler Shin. A previous ejection fracture was shown to be 20%. We will follow recommendation of Cardiology. 2. Ischemic right heel ulcer. A Podiatry consultation was obtained with Dr. Schofield. A Vascular Surgery consultation was obtained with . 3. Peripheral vascular disease. 4. Chronic renal failure. A Nephrology consultation was obtained with Dr. Montgomery. 5. Hypertension. Continue Coreg as above. 6. Coronary artery disease. 7. Hypercholesterolemia. Continue Crestor as above. 8. Benign prostatic hypertrophy. Continue Flomax as above. Will Irwni M.D. DR: EDMAR JOB#: [id number] CC:
[2016-06-18] VITALS (38 sets, daily range): BP systolic 88–140; BP diastolic 51–98
[2016-06-18] MEDS: NovoLOG Insulin Flexpen SUBQ SCH ×4 (06:17→21:00)
[2016-06-18 06:29] LABS: TROPONIN I < 0.30 ng/mL (<=0.30)
[2016-06-18 06:47] LABS: MEAN CORPUSCULAR HEMOGLOBIN 31.2 PG (27.0-31.0); MEAN CORPUSCULAR HGB CONC 30.9 G/DL (32.0-36.0); MEAN CORPUSCULAR VOLUME 101 FL (80-99); MEAN PLATELET VOLUME 12.2 FL (6.5-10.1); PLATELET COUNT 59 K/UL (150-450); RED BLOOD COUNT 3.89 M/UL (4.70-6.10); RED CELL DISTRIBUTION WIDTH 17.6 % (11.6-14.8); WHITE BLOOD COUNT 14.2 K/UL (4.8-10.8)
[2016-06-18 07:10] LABS: ALANINE AMINOTRANSFERASE 13 U/L (3-41); ALBUMIN/GLOBULIN RATIO 0.6 (1.0-2.7); ANION GAP 13 (5-15); ASPARTATE AMINO TRANSFERASE 23 U/L (5-40); CALCIUM 9.7 mg/dL (8.6-10.2); CARBON DIOXIDE 33 mEQ/L (20-30); CHLORIDE 98 mEQ/L (98-107); CHOLESTEROL 93 mg/dL (< 200); CREATININE 1.6 mg/dL (0.7-1.2); HEMOLYSIS 9; LDL CHOLESTEROL (CALC.) 58 mg/dL (60-99); MAGNESIUM 2.2 mg/dL (1.7-2.5); PHOSPHORUS 3.7 mg/dL (2.5-4.8); POTASSIUM 3.7 mEQ/L (3.4-4.9); SODIUM 144 mEQ/L (135-145); TOTAL PROTEIN 6.6 g/dL (6.6-8.7)
[2016-06-18 07:29] LABS: CRP QUANT 14.9 mg/dL (< 0.5); URIC ACID 8.6 mg/dL (3.0-7.5)
[2016-06-18 07:33] LABS: BILIRUBIN,DIRECT 0.9 mg/dL (0.1-0.3)
[2016-06-18] MEDS: Miralax 17gm pkt ORAL SCH (08:08)
[2016-06-18] MEDS: Pantoprazole Inj IVP SCH (08:09)
[2016-06-18 08:34] LABS: ABG PCO2 59.8 mmHg (35.0-45.0)
[2016-06-18 08:35] LABS: ABG ALLEN TEST POSITIVE; ABG BASE EXCESS 7.4
[2016-06-18] MEDS ORDERED: Sodium Bicarbonate 8.4% 50ml Inj IV ONE (09:30)
[2016-06-18] MEDS ORDERED: Lidocaine 1% Plain 30 ml INJ ONE (09:30)
[2016-06-18] MEDS ORDERED: Heparin 2000 units/Ns 1000ml INJ ONE (09:30)
[2016-06-18 09:36] LABS: CORTISOL LC 27.6 ug/dL (.)
[2016-06-18 10:11] LABS: BAND NEUTROPHILS % (MANUAL) 13 % (0-8); LYMPHOCYTES % (MANUAL) 4 % (20-45); MYELOCYTES % 3 % (0-0); NEUTROPHILS % (MANUAL) 78 % (45-75); TOTAL CELLS COUNTED 100
[2016-06-18 10:14] LABS: ANISOCYTOSIS 1+; BASOPHILS % (MANUAL) 0 % (0-2); EOSINOPHILS % (MANUAL) 0 % (0-3); MACROCYTES 1+; PLATELET ESTIMATE DECREASED
[2016-06-18 10:15] LABS: PLATELET MORPHOLOGY NORMAL; POLYCHROMASIA OCCASIONAL
--- NOTE | 2016-06-18 10:50 | Pulmonolgy Critical Care Note ---
Critical Care - Asmt/Plan Problems: (1) Acute respiratory failure with hypoxia (2) Cardiomyopathy (3) Chronic kidney disease (4) CHF exacerbation (5) Cellulitis Respiratory: monitor respiratory rate, adjust FIO2, CXR, other - continue bipap for now Cardiac: continue to monitor HR/BP Renal: F/U I&O, check electrolytes Infectious Disease: check cultures, continue antibiotics Gastrointestinal: continue feedings/current rate Endocrine: monitor blood sugar, check TSH, check HgA1C, continue sliding scale insulin Hematologic: monitor H/H, transfuse if hgb<8.5 Neurologic: PRN Ativan, PRN Morphine, keep patient comfortable Affect: PRN ativan Prophylaxis: Protonix Time Spent (Minutes): 40 Notes 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: 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, 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, 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 with: nurses, consultants, 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 - Objective Last 24 Hour Vital Signs Date Time Temp Pulse Resp B/P Pulse Ox O2 Delivery O2 Flow Rate FiO2 06/18/16 10:00 45 17 110/56 98 Bi-pap 30 06/18/16 09:00 47 16 140/64 98 Bi-pap 30 06/18/16 08:56 55 20 95 Facial 30 06/18/16 08:00 97.8 45 15 97/56 94 Bi-pap 30 06/18/16 08:00 30 06/18/16 08:00 45 06/18/16 07:00 47 16 101/56 98 Bi-pap 45 06/18/16 06:43 100 Bi-pap 30 06/18/16 06:43 46 14 100 Facial 30 06/18/16 06:00 47 16 88/51 95 Bi-pap 45 06/18/16 05:00 59 22 117/69 100 Bi-pap 45 06/18/16 04:50 20 14 100 Facial 30 06/18/16 04:00 58 06/18/16 04:00 45 06/18/16 04:00 97.6 58 23 111/63 97 Bi-pap 45 06/18/16 03:25 60 27 100 Facial 30 06/18/16 03:00 61 22 117/68 98 Bi-pap 30 06/18/16 02:00 57 16 106/60 98 Bi-pap 30 06/18/16 01:00 50 14 98/60 100 Bi-pap 30 06/18/16 00:48 53 24 96 Facial 30 06/18/16 00:00 46 2/8/17 00:00 97.2 46 16 100/61 100 Bi-pap 30 06/18/16 00:00 30 06/17/16 23:00 57 14 120/78 100 Bi-pap 30 06/17/16 22:45 66 22 99 Facial 30 06/17/16 22:00 62 14 107/73 100 Bi-pap 30 06/17/16 21:01 45 15 99 Facial 30 06/17/16 21:00 45 14 93/56 100 Bi-pap 30 06/17/16 21:00 105/65 06/17/16 20:00 46 15 93/62 100 Bi-pap 30 06/17/16 20:00 97.4 06/17/16 20:00 30 06/17/16 19:48 52 14 Bi-pap 30 06/17/16 19:46 52 14 98 Facial 30 06/17/16 19:30 30 06/17/16 16:19 84 Nasal Cannula 3.0 32 06/17/16 16:19 Nasal Cannula 3.0 32 06/17/16 16:00 67 06/17/16 16:00 96.5 62 19 108/68 92 Nasal Cannula 3.0 06/17/16 12:00 66 22 114/62 98 Nasal Cannula 5.0 Status: awake Condition: critical, grave HEENT: atraumatic Neck: full ROM Lungs: rales, rhonchi Heart: HR/BP stable Abdomen: soft, non-tender Extremities: no C/C/E, edema Decubiti: location Accucheck: 97 Critical Care - Subjective ROS Limited/Unobtainable: No ICU Day: 2 Intubation Day: on BIPAP Interval Events: trasnferred to ICU because of desaturation and hypotension Condition: critical FI02: 30 Sputum Amount: None Fluids: none I&O: Intake and Output 06/17/16 06/18/16 19:00 07:00 Intake Total 375.0 ml 80 ml Output Total 1000 ml 700 ml Balance -625.0 ml -620 ml Intake Oral 100 ml 80 ml IV Total 275.0 ml Output Urine Total 1000 ml 700 ml Stool Total 0 ml # Voids 3 CXR: pulmonary edema Labs: Laboratory Tests Test 06/17/16 11:00 06/17/16 17:19 06/17/16 20:30 06/17/16 21:00 Sodium Level 141 mEQ/L (135-145) Potassium Level 3.9 mEQ/L (3.4-4.9) Chloride Level 98 mEQ/L (98-107) Carbon Dioxide Level 30 mEQ/L (20-30) Anion Gap 13 (5-15) Blood Urea Nitrogen 59 mg/dL (7-23) H Creatinine 1.7 mg/dL (0.7-1.2) H Estimat Glomerular Filtration Rate mL/min (>60) Glucose Level 175 mg/dL (74-106) H Plasma/Serum Osmolality Pending Uric Acid 8.0 mg/dL (3.0-7.5) H Calcium Level 9.5 mg/dL (8.6-10.2) Phosphorus Level 3.8 mg/dL (2.5-4.8) Magnesium Level 2.1 mg/dL (1.7-2.5) Total Bilirubin 1.6 mg/dL (0.0-1.2) H Direct Bilirubin 0.9 mg/dL (0.1-0.3) H Aspartate Amino Transf (AST/SGOT) 18 U/L (5-40) Alanine Aminotransferase (ALT/SGPT) 14 U/L (3-41) Alkaline Phosphatase 263 U/L (40-129) H Total Creatine Kinase 33 U/L (38-174) L Total Protein 6.7 g/dL (6.6-8.7) Albumin 2.5 g/dL (3.5-5.2) L Globulin 4.2 g/dL Albumin/Globulin Ratio 0.5 (1.0-2.7) L Thyroid Stimulating Hormone (TSH) 35.800 uIU/mL (0.300-4.500) Free Thyroxine 0.12 ng/dL (0.86-1.85) L Free Triiodothyronine 1.0 pg/mL (2.3-4.2) L Cortisol 27.6 ug/dL (.) Arterial Blood pH 7.311 (7.350-7.450) 7.360 (7.350-7.450) Arterial Blood Partial Pressure CO2 65.5 mmHg (35.0-45.0) *H 61.7 mmHg (35.0-45.0) *H Arterial Blood Partial Pressure O2 88.5 mmHg (75.0-100.0) 61.7 mmHg (75.0-100.0) L Arterial Blood HCO3 32.3 mmol/L (22.0-26.0) H 34.5 mmol/L (22.0-26.0) H Arterial Blood Oxygen Saturation 95.6 % (92.0-98.0) 90.8 % (92.0-98.0) L Arterial Blood Base Excess 4.2 7.2 Hector Test Positive N/a Troponin I < 0.30 ng/mL (<=0.30) Test 06/17/16 22:30 06/18/16 05:00 06/18/16 06:50 Urine Eosinophils None seen Urine Osmolality Pending Urine Random Sodium 81 mmol/L Urine Random Chloride 85 mmol/L Urine Potassium Timed 21 mmol/L White Blood Count 14.2 K/UL (4.8-10.8) H Red Blood Count 3.89 M/UL (4.70-6.10) L Hemoglobin 12.1 G/DL (14.2-18.0) L Hematocrit 39.2 % (42.0-52.0) L Mean Corpuscular Volume 101 FL (80-99) H Mean Corpuscular Hemoglobin 31.2 PG (27.0-31.0) H Mean Corpuscular Hemoglobin Concent 30.9 G/DL (32.0-36.0) L Red Cell Distribution Width 17.6 % (11.6-14.8) H Platelet Count 59 K/UL (150-450) L Mean Platelet Volume 12.2 FL (6.5-10.1) H Neutrophils (%) (Auto) % (45.0-75.0) Lymphocytes (%) (Auto) % (20.0-45.0) Monocytes (%) (Auto) % (1.0-10.0) Eosinophils (%) (Auto) % (0.0-3.0) Basophils (%) (Auto) % (0.0-2.0) Differential Total Cells Counted 100 Neutrophils % (Manual) 78 % (45-75) H Lymphocytes % (Manual) 4 % (20-45) L Monocytes % (Manual) 2 % (1-10) Eosinophils % (Manual) 0 % (0-3) Basophils % (Manual) 0 % (0-2) Myelocytes % 3 % (0-0) H Band Neutrophils 13 % (0-8) H Platelet Estimate Decreased L Platelet Morphology Normal Polychromasia Occasional Anisocytosis 1+ Macrocytosis 1+ Sodium Level 144 mEQ/L (135-145) Potassium Level 3.7 mEQ/L (3.4-4.9) Chloride Level 98 mEQ/L (98-107) Carbon Dioxide Level 33 mEQ/L (20-30) H Anion Gap 13 (5-15) Blood Urea Nitrogen 59 mg/dL (7-23) H Creatinine 1.6 mg/dL (0.7-1.2) H Estimat Glomerular Filtration Rate mL/min (>60) Glucose Level 89 mg/dL (74-106) Hemoglobin A1c 7.6 % (< 6.0) H Uric Acid 8.6 mg/dL (3.0-7.5) H Calcium Level 9.7 mg/dL (8.6-10.2) Phosphorus Level 3.7 mg/dL (2.5-4.8) Magnesium Level 2.2 mg/dL (1.7-2.5) Total Bilirubin 1.9 mg/dL (0.0-1.2) H Direct Bilirubin 0.9 mg/dL (0.1-0.3) H Gamma Glutamyl Transpeptidase 214 U/L (8-61) H Aspartate Amino Transf (AST/SGOT) 23 U/L (5-40) Alanine Aminotransferase (ALT/SGPT) 13 U/L (3-41) Alkaline Phosphatase 253 U/L (40-129) H Total Creatine Kinase 48 U/L (38-174) Troponin I < 0.30 ng/mL (<=0.30) C-Reactive Protein, Quantitative 14.9 mg/dL (< 0.5) H Pro-B-Type Natriuretic Peptide 37248 pg/mL (0-450) H Total Protein 6.6 g/dL (6.6-8.7) Albumin 2.5 g/dL (3.5-5.2) L Globulin 4.1 g/dL Albumin/Globulin Ratio 0.6 (1.0-2.7) L Triglycerides Level 59 mg/dL (< 150) Cholesterol Level 93 mg/dL (< 200) LDL Cholesterol 58 mg/dL (60-99) L HDL Cholesterol 23 mg/dL (> 60) Cholesterol/HDL Ratio 4.0 (3.3-4.4) Arterial Blood pH 7.370 (7.350-7.450) Arterial Blood Partial Pressure CO2 59.8 mmHg (35.0-45.0) *H Arterial Blood Partial Pressure O2 59.7 mmHg (75.0-100.0) L Arterial Blood HCO3 34.3 mmol/L (22.0-26.0) H Arterial Blood Oxygen Saturation 87.9 % (92.0-98.0) L Arterial Blood Base Excess 7.4 Hector Test Positive IJEOMA ALMARAZ Jun 18, 2016 10:50
--- NOTE | 2016-06-18 11:19 | General Progress Note ---
Assessment/Plan Status: stable - from renal stand Status Narrative to ICU for bradycardia Assessment/Plan Acute on Chronic Kidney disease Acute respiratory failure with hypoxia BradyArrythmia CHF exacerbation Cellulitis HypoThyroidism TSH 35 Plan: pulmonary toilet diuretics echo titrate fio2 Vanco for cellulitis of legs wound care monitor renal parameters- Avoid nephrotoxics Subjective ROS Limited/Unobtainable: No Constitutional: Reports: malaise, weakness Allergies: Coded Allergies: GABAPENTIN (Verified Allergy, Unknown, 06/17/16) PREGABALIN (Verified Allergy, Unknown, 06/17/16) Objective Last 24 Hour Vital Signs Date Time Temp Pulse Resp B/P Pulse Ox O2 Delivery O2 Flow Rate FiO2 06/18/16 10:53 61 25 98 Facial 30 06/18/16 10:00 45 17 110/56 98 Bi-pap 30 06/18/16 09:00 47 16 140/64 98 Bi-pap 30 06/18/16 08:56 55 20 95 Facial 30 06/18/16 08:00 97.8 45 15 97/56 94 Bi-pap 30 06/18/16 08:00 30 06/18/16 08:00 45 06/18/16 07:00 47 16 101/56 98 Bi-pap 45 06/18/16 06:43 100 Bi-pap 30 06/18/16 06:43 46 14 100 Facial 30 06/18/16 06:00 47 16 88/51 95 Bi-pap 45 06/18/16 05:00 59 22 117/69 100 Bi-pap 45 06/18/16 04:50 20 14 100 Facial 30 06/18/16 04:00 58 06/18/16 04:00 45 06/18/16 04:00 97.6 58 23 111/63 97 Bi-pap 45 06/18/16 03:25 60 27 100 Facial 30 06/18/16 03:00 61 22 117/68 98 Bi-pap 30 06/18/16 02:00 57 16 106/60 98 Bi-pap 30 06/18/16 01:00 50 14 98/60 100 Bi-pap 30 06/18/16 00:48 53 24 96 Facial 30 06/18/16 00:00 46 06/18/16 00:00 97.2 46 16 100/61 100 Bi-pap 30 06/18/16 00:00 30 06/17/16 23:00 57 14 120/78 100 Bi-pap 30 06/17/16 22:45 66 22 99 Facial 30 06/17/16 22:00 62 14 107/73 100 Bi-pap 30 06/17/16 21:01 45 15 99 Facial 30 06/17/16 21:00 45 14 93/56 100 Bi-pap 30 06/17/16 21:00 105/65 06/17/16 20:00 46 15 93/62 100 Bi-pap 30 06/17/16 20:00 97.4 06/17/16 20:00 30 06/17/16 19:48 52 14 Bi-pap 30 06/17/16 19:46 52 14 98 Facial 30 06/17/16 19:30 30 06/17/16 16:19 84 Nasal Cannula 3.0 32 06/17/16 16:19 Nasal Cannula 3.0 32 06/17/16 16:00 67 06/17/16 16:00 96.5 62 19 108/68 92 Nasal Cannula 3.0 06/17/16 12:00 66 22 114/62 98 Nasal Cannula 5.0 Intake and Output 06/17/16 06/18/16 19:00 07:00 Intake Total 375.0 ml 80 ml Output Total 1000 ml 700 ml Balance -625.0 ml -620 ml Intake Oral 100 ml 80 ml IV Total 275.0 ml Output Urine Total 1000 ml 700 ml Stool Total 0 ml # Voids 3 Laboratory Tests 06/17/16 17:19: Arterial Blood pH 7.311L, Arterial Blood Partial Pressure CO2 65.5*H, Arterial Blood Partial Pressure O2 88.5, Arterial Blood HCO3 32.3H, Arterial Blood Oxygen Saturation 95.6, Arterial Blood Base Excess 4.2, Hector Test Positive 06/17/16 20:30: Arterial Blood pH 7.360, Arterial Blood Partial Pressure CO2 61.7*H, Arterial Blood Partial Pressure O2 61.7L, Arterial Blood HCO3 34.5H, Arterial Blood Oxygen Saturation 90.8L, Arterial Blood Base Excess 7.2, Hector Test N/a 06/17/16 21:00: Troponin I < 0.30 06/17/16 22:30: Urine Eosinophils None seen, Urine Osmolality [Pending], Urine Random Sodium 81 , Urine Random Chloride 85, Urine Potassium Timed 21 06/18/16 05:00: White Blood Count 14.2H, Red Blood Count 3.89L, Hemoglobin 12.1L, Hematocrit 39.2L, Mean Corpuscular Volume 101H, Mean Corpuscular Hemoglobin 31.2H, Mean Corpuscular Hemoglobin Concent 30.9L, Red Cell Distribution Width 17.6H, Platelet Count 59L, Mean Platelet Volume 12.2H, Neutrophils (%) (Auto) , Lymphocytes (%) (Auto) , Monocytes (%) (Auto) , Eosinophils (%) (Auto) , Basophils (%) (Auto) , Differential Total Cells Counted 100, Neutrophils % ( Manual) 78H, Lymphocytes % (Manual) 4L, Monocytes % (Manual) 2, Eosinophils % ( Manual) 0, Basophils % (Manual) 0, Myelocytes % 3H, Band Neutrophils 13H, Platelet Estimate DecreasedL, Platelet Morphology Normal, Polychromasia Occasional, Anisocytosis 1+, Macrocytosis 1+, Sodium Level 144, Potassium Level 3.7, Chloride Level 98, Carbon Dioxide Level 33H, Anion Gap 13, Blood Urea Nitrogen 59H, Creatinine 1.6H, Estimat Glomerular Filtration Rate , Glucose Level 89, Hemoglobin A1c 7.6H, Uric Acid 8.6H, Calcium Level 9.7, Phosphorus Level 3.7, Magnesium Level 2.2, Total Bilirubin 1.9H, Direct Bilirubin 0.9H, Gamma Glutamyl Transpeptidase 214H, Aspartate Amino Transf (AST/SGOT) 23, Alanine Aminotransferase (ALT/SGPT) 13, Alkaline Phosphatase 253H, Total Creatine Kinase 48, Troponin I < 0.30, C-Reactive Protein, Quantitative 14.9H, Pro-B-Type Natriuretic Peptide 66404C, Total Protein 6.6, Albumin 2.5L, Globulin 4.1, Albumin/Globulin Ratio 0.6L, Triglycerides Level 59, Cholesterol Level 93, LDL Cholesterol 58L, HDL Cholesterol 23, Cholesterol/HDL Ratio 4.0 06/18/16 06:50: Arterial Blood pH 7.370, Arterial Blood Partial Pressure CO2 59.8*H, Arterial Blood Partial Pressure O2 59.7L, Arterial Blood HCO3 34.3H, Arterial Blood Oxygen Saturation 87.9L, Arterial Blood Base Excess 7.4, Hector Test Positive Height (Feet): 6 Height (Inches): 0.00 Weight (Pounds): 136 General Appearance: mild distress EENT: other - on BIPAP Cardiovascular: bradycardia Respiratory/Chest: decreased breath sounds Abdomen: soft OZIEL CHAPMAN Jun 18, 2016 11:19
[2016-06-18] MEDS: LORazepam Inj 2mg/ml 1ml IV PRN (11:29)
--- NOTE | 2016-06-18 11:37 | Internal Med Progress Note ---
Subjective Date of Service: Jun 18, 2016 Physician Name Gigi Ceron Attending Physician Philippe Buckley MD Current Medications Medications (Trade) Dose Ordered Sig/Jazmyne Route PRN Reason Start Time Stop Time Status Last Admin Dose Admin Acetaminophen (Tylenol) 650 mg Q4H PRN ORAL Fever 06/17/16 19:45 07/17/16 19:44 Albuterol/ Ipratropium (DuoNeb 0.5-3(2.5)mg/3ml) 3 ml Q4H PRN HHN Shortness of Breath 06/17/16 20:00 06/22/16 19:59 Amoxicillin/ Clavulanate Potassium (Augmentin) 500 mg Q12H ORAL 06/17/16 21:00 06/24/16 20:59 06/18/16 08:09 Collagenase (Santyl) 1 applic DAILY TOPIC 06/18/16 09:00 07/18/16 08:59 06/18/16 08:09 Dextrose (Dextrose 50%) STAT PRN IV Hypoglycemia 06/18/16 06:00 07/18/16 05:59 Dopamine HCl/ Dextrose (DOPamine 400mg/ 250ml) 250 ml @ 11.567 mls/ hr Q24H IV 06/17/16 21:00 07/17/16 20:59 Doxycycline Monohydrate (Vibramycin) 100 mg EVERY 12 HOURS ORAL 06/17/16 21:00 06/24/16 20:59 06/18/16 08:09 Insulin Aspart (NovoLOG) BEFORE MEALS AND HS SUBQ 06/17/16 21:00 07/17/16 20:59 Levothyroxine Sodium (Synthroid) 100 mcg DAILY@0630 ORAL 06/18/16 06:30 07/18/16 06:29 06/18/16 06:15 Lorazepam (Ativan 2mg/ml 1ml) 1 mg Q2H PRN IV For Anxiety 06/18/16 12:00 06/25/16 11:59 06/18/16 11:29 Ondansetron HCl (Zofran) 4 mg Q6H PRN IVP Nausea & Vomiting 06/17/16 20:00 07/17/16 19:59 Pantoprazole 40 mg 40 mg DAILY IVP 06/18/16 09:00 07/18/16 08:59 06/18/16 08:09 Polyethylene Glycol (Miralax) 17 gm DAILY ORAL 06/18/16 09:00 07/18/16 08:59 06/18/16 08:08 Polyethylene Glycol (Miralax) 17 gm DAILYPRN PRN ORAL Constipation 06/17/16 20:00 07/17/16 19:59 Tamsulosin HCl (Flomax) 0.4 mg BEDTIME ORAL 06/17/16 21:00 07/17/16 20:59 Temazepam (Restoril) 15 mg HSPRN PRN ORAL Insomnia 06/17/16 20:00 06/24/16 19:59 Allergies: Coded Allergies: GABAPENTIN (Verified Allergy, Unknown, 06/17/16) PREGABALIN (Verified Allergy, Unknown, 06/17/16) ROS Limited/Unobtainable: Yes Subjective 75 YO M admitted with shortness of breath. Now on BIPAP. ICU. Cover for Int Jhonny-Dr Buckley Objective Last Vital Signs Date Time Temp Pulse Resp B/P Pulse Ox O2 Delivery O2 Flow Rate FiO2 06/18/16 10:53 61 25 98 Facial 30 06/18/16 10:00 110/56 06/18/16 08:00 97.8 06/17/16 16:19 3.0 General Appearance: lethargic, thin EENT: PERRL/EOMI, normal ENT inspection Neck: non-tender, normal alignment, supple, normal inspection Cardiovascular: normal peripheral pulses, normal rate, regular rhythm, no gallop/murmur, no JVD Respiratory/Chest: chest wall non-tender, crackles/rales, rhonchi - bilaterally , expiratory wheezing Abdomen: normal bowel sounds, non tender, soft, no organomegaly, no mass Extremities: normal range of motion, non-tender 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, no motor/sensory deficits Skin: normal pigmentation, warm/dry Laboratory Tests Test 06/17/16 17:19 06/17/16 20:30 06/17/16 21:00 06/17/16 22:30 Arterial Blood pH 7.311 (7.350-7.450) 7.360 (7.350-7.450) Arterial Blood Partial Pressure CO2 65.5 mmHg (35.0-45.0) *H 61.7 mmHg (35.0-45.0) *H Arterial Blood Partial Pressure O2 88.5 mmHg (75.0-100.0) 61.7 mmHg (75.0-100.0) L Arterial Blood HCO3 32.3 mmol/L (22.0-26.0) H 34.5 mmol/L (22.0-26.0) H Arterial Blood Oxygen Saturation 95.6 % (92.0-98.0) 90.8 % (92.0-98.0) L Arterial Blood Base Excess 4.2 7.2 Hector Test Positive N/a Troponin I < 0.30 ng/mL (<=0.30) Urine Eosinophils None seen Urine Osmolality Pending Urine Random Sodium 81 mmol/L Urine Random Chloride 85 mmol/L Urine Potassium Timed 21 mmol/L Test 06/18/16 05:00 06/18/16 06:50 White Blood Count 14.2 K/UL (4.8-10.8) H Red Blood Count 3.89 M/UL (4.70-6.10) L Hemoglobin 12.1 G/DL (14.2-18.0) L Hematocrit 39.2 % (42.0-52.0) L Mean Corpuscular Volume 101 FL (80-99) H Mean Corpuscular Hemoglobin 31.2 PG (27.0-31.0) H Mean Corpuscular Hemoglobin Concent 30.9 G/DL (32.0-36.0) L Red Cell Distribution Width 17.6 % (11.6-14.8) H Platelet Count 59 K/UL (150-450) L Mean Platelet Volume 12.2 FL (6.5-10.1) H Neutrophils (%) (Auto) % (45.0-75.0) Lymphocytes (%) (Auto) % (20.0-45.0) Monocytes (%) (Auto) % (1.0-10.0) Eosinophils (%) (Auto) % (0.0-3.0) Basophils (%) (Auto) % (0.0-2.0) Differential Total Cells Counted 100 Neutrophils % (Manual) 78 % (45-75) H Lymphocytes % (Manual) 4 % (20-45) L Monocytes % (Manual) 2 % (1-10) Eosinophils % (Manual) 0 % (0-3) Basophils % (Manual) 0 % (0-2) Myelocytes % 3 % (0-0) H Band Neutrophils 13 % (0-8) H Platelet Estimate Decreased L Platelet Morphology Normal Polychromasia Occasional Anisocytosis 1+ Macrocytosis 1+ Sodium Level 144 mEQ/L (135-145) Potassium Level 3.7 mEQ/L (3.4-4.9) Chloride Level 98 mEQ/L (98-107) Carbon Dioxide Level 33 mEQ/L (20-30) H Anion Gap 13 (5-15) Blood Urea Nitrogen 59 mg/dL (7-23) H Creatinine 1.6 mg/dL (0.7-1.2) H Estimat Glomerular Filtration Rate mL/min (>60) Glucose Level 89 mg/dL (74-106) Hemoglobin A1c 7.6 % (< 6.0) H Uric Acid 8.6 mg/dL (3.0-7.5) H Calcium Level 9.7 mg/dL (8.6-10.2) Phosphorus Level 3.7 mg/dL (2.5-4.8) Magnesium Level 2.2 mg/dL (1.7-2.5) Total Bilirubin 1.9 mg/dL (0.0-1.2) H Direct Bilirubin 0.9 mg/dL (0.1-0.3) H Gamma Glutamyl Transpeptidase 214 U/L (8-61) H Aspartate Amino Transf (AST/SGOT) 23 U/L (5-40) Alanine Aminotransferase (ALT/SGPT) 13 U/L (3-41) Alkaline Phosphatase 253 U/L (40-129) H Total Creatine Kinase 48 U/L (38-174) Troponin I < 0.30 ng/mL (<=0.30) C-Reactive Protein, Quantitative 14.9 mg/dL (< 0.5) H Pro-B-Type Natriuretic Peptide 47052 pg/mL (0-450) H Total Protein 6.6 g/dL (6.6-8.7) Albumin 2.5 g/dL (3.5-5.2) L Globulin 4.1 g/dL Albumin/Globulin Ratio 0.6 (1.0-2.7) L Triglycerides Level 59 mg/dL (< 150) Cholesterol Level 93 mg/dL (< 200) LDL Cholesterol 58 mg/dL (60-99) L HDL Cholesterol 23 mg/dL (> 60) Cholesterol/HDL Ratio 4.0 (3.3-4.4) Arterial Blood pH 7.370 (7.350-7.450) Arterial Blood Partial Pressure CO2 59.8 mmHg (35.0-45.0) *H Arterial Blood Partial Pressure O2 59.7 mmHg (75.0-100.0) L Arterial Blood HCO3 34.3 mmol/L (22.0-26.0) H Arterial Blood Oxygen Saturation 87.9 % (92.0-98.0) L Arterial Blood Base Excess 7.4 Hector Test Positive Intake and Output 06/17/16 06/18/16 19:00 07:00 Intake Total 375.0 ml 80 ml Output Total 1000 ml 700 ml Balance -625.0 ml -620 ml Intake Oral 100 ml 80 ml IV Total 275.0 ml Output Urine Total 1000 ml 700 ml Stool Total 0 ml # Voids 3 Assessment/Plan Problem List: (1) HTN (hypertension) (2) CAD (coronary artery disease) (3) Hypercholesteremia (4) BPH (benign prostatic hyperplasia) (5) SOB (shortness of breath) Assessment & Plan: Due to CHf. Currently on BIPAP (6) Ischemic ulcer of right heel Assessment & Plan: await arterial dopplers. Await CT angiogram. Await vasc surg consult-Dr Vazquez (7) Peripheral vascular disease (8) Renal failure (ARF), acute on chronic Assessment & Plan: See nephrology note. (9) CHF (congestive heart failure) Assessment & Plan: EF=25%. See cardiology note. (10) Bradycardia Assessment & Plan: Due to RBBB. See cardiology note. Status: deteriorating GIGI CERON Jun 18, 2016 11:37
--- NOTE | 2016-06-18 13:46 | Diagnostic Imaging Report ---
Indications: Long-term central IV access required for multiple medications. Technique: The procedure indications, risks, and alternatives were explained to the patient's family who understands and gives consent to proceed. Procedure was performed at bedside. Strict aseptic technique was utilized, including hand washing, use of hat and mask, use of sterile gown and gloves, sterile ultrasound gel and probe cover, prepping of right arm skin with 2% chlorhexidine solution, and application of full body sterile barrier over this area. Skin and subcutaneous soft tissues were infiltrated with 1% lidocaine and sodium bicarbonate. A small dermatotomy was made, through which the larger of two patent, adequate size right brachial veins was punctured percutaneously under direct sonographic guidance with a 21-gauge needle. Exchange was made over a 0.018 inch guidewire for a 5 [place] peel-away sheath. A [employer]able [employer] Power-PICC 5 [place] dual lumen central venous catheter was cut to 37.5 cm, then advanced through the sheath over the guidewire. Guidewire and sheath were removed. Both catheter ports were aspirated, then flushed with heparinized saline. Catheter was secured the skin with adhesive dressing. Patient tolerated procedure well without immediate complications. Followup chest radiograph performed. Findings: Both ports aspirate and flush freely. Bilateral pulmonary mixed interstitial and alveolar infiltrates, bibasal pleural effusions unchanged. IMPRESSION: Bedside placement of peripherally inserted central venous catheter via right brachial vein, working well, in good position, may be used. Stable bilateral congestive changes. Underlying pneumonia not excludable, unchanged.
[2016-06-18] MEDS: DOPamine 400mg/250ml 250 ML IV SCH (14:05)
--- NOTE | 2016-06-18 15:16 | Infectious Diseases Prog Note ---
Assessment/Plan Assessment/Plan ASSESSMENT: 75 y/o male with: // BLE cellulitis / chronic right heel ulcer, probable osteomyelitis - elevated CRP // Hypotension, bradycardia / pressors // Acute leukocytosis, afebrile // Acute respiratory failure / BiPAP ?CHF exacerbation ( elevated BNP ) ?HCAP. Refused CXR // ICMO, EF 20-25%, mod MR, TR, mild pulmonary HTN - [facility] cardiology has recommended LHC prior to any potential anesthesia, high risk surgical candidate // PAD // CKD // DM2 - HbA1c 7.6% // Abnl TFTs // TCP // Noncompliance // No ABX allergies // Full Code PLAN: - broaden suppressive PO doxycycline, augmentin to IV vancomycin, levaquin, zosyn d# 1. Unlikely cure osteomyelitis with IV ABX given severe PAD, low cardiac output, not currently a surgical candidate - monitor CBC, temperatures - monitor BMP - CXR if pt allows - wound care - LHC, re-vascularization if pt agrees - BiPAP prn - pressor support, wean as tolerated Subjective Allergies: Coded Allergies: GABAPENTIN (Verified Allergy, Unknown, 06/17/16) PREGABALIN (Verified Allergy, Unknown, 06/17/16) Subjective remains afebrile transferred to ICU for respiratory distress, now on BiPAP, dopamine acute leukocytosis Objective Vital Signs Last 24 Hour Vital Signs Date Time Temp Pulse Resp B/P Pulse Ox O2 Delivery O2 Flow Rate FiO2 06/18/16 15:00 88 18 110/74 99 Bi-pap 30 06/18/16 14:50 46 19 95 Facial 50 06/18/16 14:05 95/60 06/18/16 14:00 43 18 95/60 99 Bi-pap 30 06/18/16 13:00 45 17 99/53 97 Bi-pap 30 06/18/16 12:54 46 19 95 Facial 30 06/18/16 12:00 30 06/18/16 12:00 49 06/18/16 12:00 98.1 48 17 107/59 98 Bi-pap 30 06/18/16 11:00 57 17 116/68 98 Bi-pap 30 06/18/16 10:53 61 25 98 Facial 30 06/18/16 10:00 45 17 110/56 98 Bi-pap 30 06/18/16 09:00 47 16 140/64 98 Bi-pap 30 06/18/16 08:56 55 20 95 Facial 30 06/18/16 08:00 97.8 45 15 97/56 94 Bi-pap 30 06/18/16 08:00 30 06/18/16 08:00 45 06/18/16 07:00 47 16 101/56 98 Bi-pap 45 06/18/16 06:43 100 Bi-pap 30 06/18/16 06:43 46 14 100 Facial 30 06/18/16 06:00 47 16 88/51 95 Bi-pap 45 06/18/16 05:00 59 22 117/69 100 Bi-pap 45 06/18/16 04:50 20 14 100 Facial 30 06/18/16 04:00 58 06/18/16 04:00 45 06/18/16 04:00 97.6 58 23 111/63 97 Bi-pap 45 06/18/16 03:25 60 27 100 Facial 30 06/18/16 03:00 61 22 117/68 98 Bi-pap 30 06/18/16 02:00 57 16 106/60 98 Bi-pap 30 06/18/16 01:00 50 14 98/60 100 Bi-pap 30 06/18/16 00:48 53 24 96 Facial 30 06/18/16 00:00 46 06/18/16 00:00 97.2 46 16 100/61 100 Bi-pap 30 06/18/16 00:00 30 06/17/16 23:00 57 14 120/78 100 Bi-pap 30 06/17/16 22:45 66 22 99 Facial 30 06/17/16 22:00 62 14 107/73 100 Bi-pap 30 06/17/16 21:01 45 15 99 Facial 30 06/17/16 21:00 45 14 93/56 100 Bi-pap 30 06/17/16 21:00 105/65 06/17/16 20:00 46 15 93/62 100 Bi-pap 30 06/17/16 20:00 97.4 06/17/16 20:00 30 06/17/16 19:48 52 14 Bi-pap 30 06/17/16 19:46 52 14 98 Facial 30 06/17/16 19:30 30 06/17/16 16:19 84 Nasal Cannula 3.0 32 06/17/16 16:19 Nasal Cannula 3.0 32 2/7/17 16:00 67 06/17/16 16:00 96.5 62 19 108/68 92 Nasal Cannula 3.0 Height (Feet): 6 Height (Inches): 0.00 Weight (Pounds): 136 General Appearance: other - BiPAP Respiratory/Chest: decreased breath sounds Cardiovascular: normal rate, regular rhythm Abdomen: normal bowel sounds, soft, non tender, non distended Laboratory Tests Test 06/17/16 17:19 06/17/16 20:30 06/17/16 21:00 06/17/16 22:30 Arterial Blood pH 7.311 (7.350-7.450) 7.360 (7.350-7.450) Arterial Blood Partial Pressure CO2 65.5 mmHg (35.0-45.0) *H 61.7 mmHg (35.0-45.0) *H Arterial Blood Partial Pressure O2 88.5 mmHg (75.0-100.0) 61.7 mmHg (75.0-100.0) L Arterial Blood HCO3 32.3 mmol/L (22.0-26.0) H 34.5 mmol/L (22.0-26.0) H Arterial Blood Oxygen Saturation 95.6 % (92.0-98.0) 90.8 % (92.0-98.0) L Arterial Blood Base Excess 4.2 7.2 Hector Test Positive N/a Troponin I < 0.30 ng/mL (<=0.30) Urine Eosinophils None seen Urine Osmolality Pending Urine Random Sodium 81 mmol/L Urine Random Chloride 85 mmol/L Urine Potassium Timed 21 mmol/L Test 06/18/16 05:00 06/18/16 06:50 White Blood Count 14.2 K/UL (4.8-10.8) H Red Blood Count 3.89 M/UL (4.70-6.10) L Hemoglobin 12.1 G/DL (14.2-18.0) L Hematocrit 39.2 % (42.0-52.0) L Mean Corpuscular Volume 101 FL (80-99) H Mean Corpuscular Hemoglobin 31.2 PG (27.0-31.0) H Mean Corpuscular Hemoglobin Concent 30.9 G/DL (32.0-36.0) L Red Cell Distribution Width 17.6 % (11.6-14.8) H Platelet Count 59 K/UL (150-450) L Mean Platelet Volume 12.2 FL (6.5-10.1) H Neutrophils (%) (Auto) % (45.0-75.0) Lymphocytes (%) (Auto) % (20.0-45.0) Monocytes (%) (Auto) % (1.0-10.0) Eosinophils (%) (Auto) % (0.0-3.0) Basophils (%) (Auto) % (0.0-2.0) Differential Total Cells Counted 100 Neutrophils % (Manual) 78 % (45-75) H Lymphocytes % (Manual) 4 % (20-45) L Monocytes % (Manual) 2 % (1-10) Eosinophils % (Manual) 0 % (0-3) Basophils % (Manual) 0 % (0-2) Myelocytes % 3 % (0-0) H Band Neutrophils 13 % (0-8) H Platelet Estimate Decreased L Platelet Morphology Normal Polychromasia Occasional Anisocytosis 1+ Macrocytosis 1+ Sodium Level 144 mEQ/L (135-145) Potassium Level 3.7 mEQ/L (3.4-4.9) Chloride Level 98 mEQ/L (98-107) Carbon Dioxide Level 33 mEQ/L (20-30) H Anion Gap 13 (5-15) Blood Urea Nitrogen 59 mg/dL (7-23) H Creatinine 1.6 mg/dL (0.7-1.2) H Estimat Glomerular Filtration Rate mL/min (>60) Glucose Level 89 mg/dL (74-106) Hemoglobin A1c 7.6 % (< 6.0) H Uric Acid 8.6 mg/dL (3.0-7.5) H Calcium Level 9.7 mg/dL (8.6-10.2) Phosphorus Level 3.7 mg/dL (2.5-4.8) Magnesium Level 2.2 mg/dL (1.7-2.5) Total Bilirubin 1.9 mg/dL (0.0-1.2) H Direct Bilirubin 0.9 mg/dL (0.1-0.3) H Gamma Glutamyl Transpeptidase 214 U/L (8-61) H Aspartate Amino Transf (AST/SGOT) 23 U/L (5-40) Alanine Aminotransferase (ALT/SGPT) 13 U/L (3-41) Alkaline Phosphatase 253 U/L (40-129) H Total Creatine Kinase 48 U/L (38-174) Troponin I < 0.30 ng/mL (<=0.30) C-Reactive Protein, Quantitative 14.9 mg/dL (< 0.5) H Pro-B-Type Natriuretic Peptide 28661 pg/mL (0-450) H Total Protein 6.6 g/dL (6.6-8.7) Albumin 2.5 g/dL (3.5-5.2) L Globulin 4.1 g/dL Albumin/Globulin Ratio 0.6 (1.0-2.7) L Triglycerides Level 59 mg/dL (< 150) Cholesterol Level 93 mg/dL (< 200) LDL Cholesterol 58 mg/dL (60-99) L HDL Cholesterol 23 mg/dL (> 60) Cholesterol/HDL Ratio 4.0 (3.3-4.4) Arterial Blood pH 7.370 (7.350-7.450) Arterial Blood Partial Pressure CO2 59.8 mmHg (35.0-45.0) *H Arterial Blood Partial Pressure O2 59.7 mmHg (75.0-100.0) L Arterial Blood HCO3 34.3 mmol/L (22.0-26.0) H Arterial Blood Oxygen Saturation 87.9 % (92.0-98.0) L Arterial Blood Base Excess 7.4 Hector Test Positive Current Medications Medications (Trade) Dose Ordered Sig/Jazmyne Route PRN Reason Start Time Stop Time Status Last Admin Dose Admin Acetaminophen (Tylenol) 650 mg Q4H PRN ORAL Fever 06/17/16 19:45 07/17/16 19:44 Albuterol/ Ipratropium (DuoNeb 0.5-3(2.5)mg/3ml) 3 ml Q4H PRN HHN Shortness of Breath 06/17/16 20:00 06/22/16 19:59 Amoxicillin/ Clavulanate Potassium (Augmentin) 500 mg Q12H ORAL 06/17/16 21:00 06/24/16 20:59 06/18/16 08:09 Collagenase (Santyl) 1 applic DAILY TOPIC 06/18/16 09:00 07/18/16 08:59 06/18/16 08:09 Dextrose (Dextrose 50%) STAT PRN IV Hypoglycemia 06/18/16 06:00 07/18/16 05:59 Dopamine HCl/ Dextrose (DOPamine 400mg/ 250ml) 250 ml @ 11.567 mls/ hr Q24H IV 06/17/16 21:00 07/17/16 20:59 06/18/16 14:05 Doxycycline Monohydrate (Vibramycin) 100 mg EVERY 12 HOURS ORAL 06/17/16 21:00 06/24/16 20:59 06/18/16 08:09 Insulin Aspart (NovoLOG) BEFORE MEALS AND HS SUBQ 06/17/16 21:00 07/17/16 20:59 Levothyroxine Sodium (Synthroid) 100 mcg DAILY@0630 ORAL 06/18/16 06:30 07/18/16 06:29 06/18/16 06:15 Lorazepam (Ativan 2mg/ml 1ml) 1 mg Q2H PRN IV For Anxiety 06/18/16 12:00 06/25/16 11:59 06/18/16 11:29 Ondansetron HCl (Zofran) 4 mg Q6H PRN IVP Nausea & Vomiting 06/17/16 20:00 07/17/16 19:59 Pantoprazole 40 mg 40 mg DAILY IVP 06/18/16 09:00 07/18/16 08:59 06/18/16 08:09 Polyethylene Glycol (Miralax) 17 gm DAILY ORAL 06/18/16 09:00 07/18/16 08:59 06/18/16 08:08 Polyethylene Glycol (Miralax) 17 gm DAILYPRN PRN ORAL Constipation 06/17/16 20:00 07/17/16 19:59 Tamsulosin HCl (Flomax) 0.4 mg BEDTIME ORAL 06/17/16 21:00 07/17/16 20:59 Temazepam (Restoril) 15 mg HSPRN PRN ORAL Insomnia 06/17/16 20:00 06/24/16 19:59 LIO LEMUS Jun 18, 2016 15:16
--- NOTE | 2016-06-18 16:11 | Diagnostic Imaging Report ---
APPROVED REPORT CPT Code: 82458 Symptoms Non-healing Ulcer : Bilaterally Comments: BLE cellulitis Comments Technically difficult study due to calcific interference. RIGHT LEG: Common femoral artery waveform analysis is within normal limits at rest. Color flow duplex sonography reveals mild calcification throughout the superficial femoral and popliteal arteries. There is no evidence of stenosis or occlusion within these segments. The tibioperoneal trunk is also patent. Doppler tibial artery waveform analysis is monophasic is consistent with moderate ischemia at rest. LEFT LEG: Common femoral artery waveform analysis is within normal limits at rest. Color flow duplex sonography reveals moderate calcification throughout the superficial femoral and popliteal arteries. There is no evidence of stenosis or occlusion within these segments. The tibioperoneal trunk is not well visualized. Doppler tibial artery waveform analysis is monophasic is consistent with moderate to severe ischemia at rest.
--- NOTE | 2016-06-18 16:13 | Diagnostic Imaging Report ---
APPROVED REPORT CPT Code: 22728 Present Symptoms Lower Extremity Edema: Bilateral Shortness of breath BILATERAL: Imaging reveals a patent deep venous system bilaterally. There is no evidence of thrombus within the femoral, popliteal or tibial segments. The greater saphenous veins are also within normal limits. Doppler indicates normal spontaneous flow within these segments.
[2016-06-18] MEDS: Piperacillin/Tazobactam 3.375 GM in D5W 110 ML IVPB SCH (17:23)
[2016-06-18] MEDS: Vancomycin 750mg/D5W 275ml IVPB SCH ×2 (19:43)
--- NOTE | 2016-06-18 19:58 | Cardiology Progress Note ---
Assessment/Plan Assessment/Plan 1. Congestive heart failure. 2. Cardiomyopathy. 3. Mitral regurgitation. 4. Renal insufficiency. 5. Right bundle-branch conduction defect. 6. Pulmonary hypertension. 7. History of cardiorenal syndrome. 8. Hyperlipidemia. 9. Bradycardia 10. hypotesnion 11. respiratory acidosis / failure 12. 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 occsions started on dopamine for bp and heart zimmer[pport now heart is better edema still present in dependent areas ekg reviwed tele reviewed personally nwo on bipap will need a cxr will titrate dopaien off and use doputamin for support with cardiomyopathy all trop are neg duplex neg echo will be repated labs revwied cr is stable repeat labs in am sdaneshrad 40 min Subjective ROS Limited/Unobtainable: Yes Subjective on bipap Objective Last 24 Hour Vital Signs Date Time Temp Pulse Resp B/P Pulse Ox O2 Delivery O2 Flow Rate FiO2 06/18/16 19:30 93 18 115/76 95 Bi-pap 50 06/18/16 19:00 85 17 122/85 95 Bi-pap 50 06/18/16 18:30 82 17 125/78 95 Bi-pap 50 06/18/16 18:00 80 17 122/80 95 Bi-pap 50 06/18/16 17:36 92 19 94 Facial 50 06/18/16 17:30 91 26 119/97 96 Bi-pap 50 06/18/16 17:00 93 30 137/77 96 Bi-pap 50 06/18/16 16:30 87 18 124/83 99 Bi-pap 50 06/18/16 16:00 50 06/18/16 16:00 88 06/18/16 16:00 98.2 88 18 123/82 99 Bi-pap 50 06/18/16 15:30 88 18 113/88 99 Bi-pap 50 06/18/16 15:00 88 18 110/74 99 Bi-pap 30 06/18/16 14:50 46 19 95 Facial 50 06/18/16 14:30 48 18 125/66 99 Bi-pap 30 06/18/16 14:05 95/60 06/18/16 14:00 43 18 95/60 99 Bi-pap 30 06/18/16 13:00 45 17 99/53 97 Bi-pap 30 06/18/16 12:54 46 19 95 Facial 30 06/18/16 12:00 30 06/18/16 12:00 49 06/18/16 12:00 98.1 48 17 107/59 98 Bi-pap 30 06/18/16 11:00 57 17 116/68 98 Bi-pap 30 06/18/16 10:53 61 25 98 Facial 30 06/18/16 10:00 45 17 110/56 98 Bi-pap 30 06/18/16 09:00 47 16 140/64 98 Bi-pap 30 06/18/16 08:56 55 20 95 Facial 30 06/18/16 08:00 97.8 45 15 97/56 94 Bi-pap 30 06/18/16 08:00 30 06/18/16 08:00 45 06/18/16 07:00 47 16 101/56 98 Bi-pap 45 06/18/16 06:43 100 Bi-pap 30 06/18/16 06:43 46 14 100 Facial 30 06/18/16 06:00 47 16 88/51 95 Bi-pap 45 06/18/16 05:00 59 22 117/69 100 Bi-pap 45 06/18/16 04:50 20 14 100 Facial 30 06/18/16 04:00 58 06/18/16 04:00 45 06/18/16 04:00 97.6 58 23 111/63 97 Bi-pap 45 06/18/16 03:25 60 27 100 Facial 30 06/18/16 03:00 61 22 117/68 98 Bi-pap 30 06/18/16 02:00 57 16 106/60 98 Bi-pap 30 06/18/16 01:00 50 14 98/60 100 Bi-pap 30 06/18/16 00:48 53 24 96 Facial 30 06/18/16 00:00 46 06/18/16 00:00 97.2 46 16 100/61 100 Bi-pap 30 06/18/16 00:00 30 06/17/16 23:00 57 14 120/78 100 Bi-pap 30 06/17/16 22:45 66 22 99 Facial 30 06/17/16 22:00 62 14 107/73 100 Bi-pap 30 06/17/16 21:01 45 15 99 Facial 30 06/17/16 21:00 45 14 93/56 100 Bi-pap 30 06/17/16 21:00 105/65 06/17/16 20:00 46 15 93/62 100 Bi-pap 30 06/17/16 20:00 97.4 06/17/16 20:00 30 General Appearance: no apparent distress, patient on isolation, isolation precautions Neck: supple Cardiovascular: normal rate, regular rhythm Respiratory/Chest: crackles/rales Abdomen: normal bowel sounds, non tender, soft Extremities: severe edema - edema no win prosimal dependiet are buttock and flank less so in the distal lower ext Intake and Output 06/17/16 06/18/16 19:00 07:00 Intake Total 375.0 ml 80 ml Output Total 1000 ml 700 ml Balance -625.0 ml -620 ml Intake Oral 100 ml 80 ml IV Total 275.0 ml Output Urine Total 1000 ml 700 ml Stool Total 0 ml # Voids 3 Laboratory Tests Test 06/17/16 20:30 06/17/16 21:00 06/17/16 22:30 06/18/16 05:00 Arterial Blood pH 7.360 (7.350-7.450) Arterial Blood Partial Pressure CO2 61.7 mmHg (35.0-45.0) *H Arterial Blood Partial Pressure O2 61.7 mmHg (75.0-100.0) L Arterial Blood HCO3 34.5 mmol/L (22.0-26.0) H Arterial Blood Oxygen Saturation 90.8 % (92.0-98.0) L Arterial Blood Base Excess 7.2 Hector Test N/a Troponin I < 0.30 ng/mL (<=0.30) < 0.30 ng/mL (<=0.30) Urine Eosinophils None seen Urine Osmolality Pending Urine Random Sodium 81 mmol/L Urine Random Chloride 85 mmol/L Urine Potassium Timed 21 mmol/L White Blood Count 14.2 K/UL (4.8-10.8) H Red Blood Count 3.89 M/UL (4.70-6.10) L Hemoglobin 12.1 G/DL (14.2-18.0) L Hematocrit 39.2 % (42.0-52.0) L Mean Corpuscular Volume 101 FL (80-99) H Mean Corpuscular Hemoglobin 31.2 PG (27.0-31.0) H Mean Corpuscular Hemoglobin Concent 30.9 G/DL (32.0-36.0) L Red Cell Distribution Width 17.6 % (11.6-14.8) H Platelet Count 59 K/UL (150-450) L Mean Platelet Volume 12.2 FL (6.5-10.1) H Neutrophils (%) (Auto) % (45.0-75.0) Lymphocytes (%) (Auto) % (20.0-45.0) Monocytes (%) (Auto) % (1.0-10.0) Eosinophils (%) (Auto) % (0.0-3.0) Basophils (%) (Auto) % (0.0-2.0) Differential Total Cells Counted 100 Neutrophils % (Manual) 78 % (45-75) H Lymphocytes % (Manual) 4 % (20-45) L Monocytes % (Manual) 2 % (1-10) Eosinophils % (Manual) 0 % (0-3) Basophils % (Manual) 0 % (0-2) Myelocytes % 3 % (0-0) H Band Neutrophils 13 % (0-8) H Platelet Estimate Decreased L Platelet Morphology Normal Polychromasia Occasional Anisocytosis 1+ Macrocytosis 1+ Sodium Level 144 mEQ/L (135-145) Potassium Level 3.7 mEQ/L (3.4-4.9) Chloride Level 98 mEQ/L (98-107) Carbon Dioxide Level 33 mEQ/L (20-30) H Anion Gap 13 (5-15) Blood Urea Nitrogen 59 mg/dL (7-23) H Creatinine 1.6 mg/dL (0.7-1.2) H Estimat Glomerular Filtration Rate mL/min (>60) Glucose Level 89 mg/dL (74-106) Hemoglobin A1c 7.6 % (< 6.0) H Uric Acid 8.6 mg/dL (3.0-7.5) H Calcium Level 9.7 mg/dL (8.6-10.2) Phosphorus Level 3.7 mg/dL (2.5-4.8) Magnesium Level 2.2 mg/dL (1.7-2.5) Total Bilirubin 1.9 mg/dL (0.0-1.2) H Direct Bilirubin 0.9 mg/dL (0.1-0.3) H Gamma Glutamyl Transpeptidase 214 U/L (8-61) H Aspartate Amino Transf (AST/SGOT) 23 U/L (5-40) Alanine Aminotransferase (ALT/SGPT) 13 U/L (3-41) Alkaline Phosphatase 253 U/L (40-129) H Total Creatine Kinase 48 U/L (38-174) C-Reactive Protein, Quantitative 14.9 mg/dL (< 0.5) H Pro-B-Type Natriuretic Peptide 83375 pg/mL (0-450) H Total Protein 6.6 g/dL (6.6-8.7) Albumin 2.5 g/dL (3.5-5.2) L Globulin 4.1 g/dL Albumin/Globulin Ratio 0.6 (1.0-2.7) L Triglycerides Level 59 mg/dL (< 150) Cholesterol Level 93 mg/dL (< 200) LDL Cholesterol 58 mg/dL (60-99) L HDL Cholesterol 23 mg/dL (> 60) Cholesterol/HDL Ratio 4.0 (3.3-4.4) Test 06/18/16 06:50 Arterial Blood pH 7.370 (7.350-7.450) Arterial Blood Partial Pressure CO2 59.8 mmHg (35.0-45.0) *H Arterial Blood Partial Pressure O2 59.7 mmHg (75.0-100.0) L Arterial Blood HCO3 34.3 mmol/L (22.0-26.0) H Arterial Blood Oxygen Saturation 87.9 % (92.0-98.0) L Arterial Blood Base Excess 7.4 Hector Test Positive TAL DEE Jun 18, 2016 19:57
[2016-06-18] MEDS ORDERED: DOBUTamine 250mg/250ml Premix 250 ML IV SCH (20:15)
[2016-06-18] MEDS: Tamsulosin 0.4mg cap ORAL SCH (20:23)
[2016-06-18] MEDS ORDERED: DOPamine 400mg/250ml 250 ML IV SCH (20:30)
[2016-06-18] MEDS: DOBUTamine 250mg/250ml Premix 250 ML IV SCH (21:35)
[2016-06-19] VITALS (36 sets, daily range): BP systolic 85–124; BP diastolic 41–83
[2016-06-19] MEDS: Piperacillin/Tazobactam 3.375 GM in D5W 110 ML IVPB SCH ×3 (00:26→16:36)
[2016-06-19 06:03] LABS: MEAN CORPUSCULAR HEMOGLOBIN 38.9 PG (27.0-31.0); MEAN CORPUSCULAR VOLUME 100 FL (80-99); PLATELET COUNT 35 K/UL (150-450); RED BLOOD COUNT 3.02 M/UL (4.70-6.10); RED CELL DISTRIBUTION WIDTH 18.5 % (11.6-14.8); WHITE BLOOD COUNT 9.9 K/UL (4.8-10.8)
[2016-06-19] MEDS: NovoLOG Insulin Flexpen SUBQ SCH ×4 (06:19→20:36)
[2016-06-19 06:58] LABS: ALANINE AMINOTRANSFERASE 14 U/L (3-41); ALBUMIN/GLOBULIN RATIO 0.5 (1.0-2.7); ANION GAP 15 (5-15); ASPARTATE AMINO TRANSFERASE 47 U/L (5-40); CALCIUM 8.9 mg/dL (8.6-10.2); CARBON DIOXIDE 28 mEQ/L (20-30); CHLORIDE 100 mEQ/L (98-107); CREATININE 1.5 mg/dL (0.7-1.2); HEMOLYSIS 31; PHOSPHORUS 3.5 mg/dL (2.5-4.8); POTASSIUM 4.3 mEQ/L (3.4-4.9); SODIUM 143 mEQ/L (135-145); TOTAL PROTEIN 5.4 g/dL (6.6-8.7)
[2016-06-19 07:21] LABS: BILIRUBIN,DIRECT 0.7 mg/dL (0.1-0.3)
[2016-06-19 07:31] LABS: TROPONIN I 1.59 ng/mL (<=0.30)
[2016-06-19] MEDS: LORazepam Inj 2mg/ml 1ml IV PRN ×2 (08:29→23:24)
[2016-06-19 08:32] LABS: ABG BASE EXCESS 8
[2016-06-19 08:40] LABS: BAND NEUTROPHILS % (MANUAL) 7 % (0-8); BASOPHILS % (MANUAL) 0 % (0-2); EOSINOPHILS % (MANUAL) 0 % (0-3); LYMPHOCYTES % (MANUAL) 9 % (20-45); MYELOCYTES % 2 % (0-0); NEUTROPHILS % (MANUAL) 80 % (45-75); PLATELET ESTIMATE DECREASED; PLATELET MORPHOLOGY NORMAL; TOTAL CELLS COUNTED 100
[2016-06-19 08:41] LABS: ANISOCYTOSIS 1+; HYPOCHROMASIA 1+; MACROCYTES 1+
[2016-06-19] MEDS: Miralax 17gm pkt ORAL SCH (09:37)
[2016-06-19] MEDS: Pantoprazole Inj IVP SCH (09:37)
[2016-06-19 10:11] LABS: OTHERS PATHOLOGIST COMMENT
--- NOTE | 2016-06-19 10:52 | Pulmonolgy Critical Care Note ---
Critical Care - Asmt/Plan Problems: (1) Acute respiratory failure with hypoxia (2) Cardiomyopathy (3) Chronic kidney disease (4) CHF exacerbation (5) Cellulitis Respiratory: monitor respiratory rate, adjust FIO2, CXR Cardiac: continue to monitor HR/BP Renal: F/U I&O, keep IV fluid, check electrolytes Infectious Disease: check cultures, continue antibiotics Gastrointestinal: continue feedings/current rate Endocrine: check HgA1C, continue sliding scale insulin Hematologic: monitor H/H, transfuse if hgb<8.5 Neurologic: PRN Morphine, keep patient comfortable Affect: PRN ativan Prophylaxis: Protonix, Heparin Time Spent (Minutes): 40 Notes Reviewed: edi manager, cardio, 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 with: nurses, consultants Critical Care - Objective Last 24 Hour Vital Signs Date Time Temp Pulse Resp B/P Pulse Ox O2 Delivery O2 Flow Rate FiO2 06/19/16 10:00 62 20 97/52 100 Bi-pap 50 06/19/16 09:30 51 20 100/57 100 Bi-pap 50 06/19/16 09:00 97.8 59 20 98/59 100 Bi-pap 50 06/19/16 08:47 50 17 100 Facial 50 06/19/16 08:30 97.8 60 20 96/60 100 Bi-pap 50 06/19/16 08:00 97.8 57 28 93/52 100 Bi-pap 50 06/19/16 08:00 50 06/19/16 08:00 57 06/19/16 07:00 Bi-pap 06/19/16 07:00 67 35 100 Facial 50 06/19/16 07:00 100 Bi-pap 50 06/19/16 06:00 52 19 97/46 100 Bi-pap 50 06/19/16 05:30 62 35 100 Facial 50 06/19/16 05:30 61 26 94/51 100 Bi-pap 50 06/19/16 05:00 61 26 95/49 99 Bi-pap 50 06/19/16 04:30 52 18 85/48 100 Bi-pap 50 06/19/16 04:00 97.7 63 22 107/58 99 Bi-pap 50 06/19/16 04:00 50 06/19/16 04:00 63 06/19/16 03:30 65 19 107/62 98 Bi-pap 50 06/19/16 03:15 50 35 100 Facial 50 06/19/16 03:00 50 19 87/43 100 Bi-pap 50 06/19/16 02:30 50 20 86/58 100 Bi-pap 50 06/19/16 02:00 52 20 90/43 100 Bi-pap 50 06/19/16 01:30 53 19 95/43 100 Bi-pap 50 06/19/16 01:29 53 18 100 Facial 50 06/19/16 01:00 57 18 88/46 100 Bi-pap 50 06/19/16 00:30 63 19 99/51 100 Bi-pap 50 06/19/16 00:00 97.8 94 19 124/83 99 Bi-pap 50 06/19/16 00:00 94 06/19/16 00:00 50 06/18/16 23:45 99 25 129/98 96 Bi-pap 50 06/18/16 23:30 83 17 109/82 100 Bi-pap 50 06/18/16 23:27 84 16 99 Facial 50 06/18/16 23:15 84 16 112/83 99 Bi-pap 50 06/18/16 23:00 84 25 114/81 95 Bi-pap 50 06/18/16 22:30 84 25 116/77 95 Bi-pap 50 06/18/16 22:00 76 25 118/77 95 Bi-pap 50 06/18/16 22:00 73 18 118/77 98 Bi-pap 50 06/18/16 21:45 81 25 119/71 95 Bi-pap 50 06/18/16 21:35 98/54 06/18/16 21:30 61 19 98/54 99 Bi-pap 50 06/18/16 21:15 65 39 103/64 99 Bi-pap 50 06/18/16 21:14 69 21 99 Facial 50 06/18/16 21:00 98.4 87 20 119/71 97 Bi-pap 50 06/18/16 20:30 93 19 108/71 99 Bi-pap 50 06/18/16 20:00 50 06/18/16 20:00 81 19 117/79 95 Bi-pap 50 06/18/16 20:00 82 06/18/16 19:30 93 18 115/76 95 Bi-pap 50 06/18/16 19:30 85 21 98 Facial 50 06/18/16 19:30 100 Bi-pap 50 06/18/16 19:30 Bi-pap 06/18/16 19:00 85 17 122/85 95 Bi-pap 50 06/18/16 18:30 82 17 125/78 95 Bi-pap 50 06/18/16 18:00 80 17 122/80 95 Bi-pap 50 06/18/16 17:36 92 19 94 Facial 50 06/18/16 17:30 91 26 119/97 96 Bi-pap 50 06/18/16 17:00 93 30 137/77 96 Bi-pap 50 06/18/16 16:30 87 18 124/83 99 Bi-pap 50 06/18/16 16:00 50 06/18/16 16:00 88 06/18/16 16:00 98.2 88 18 123/82 99 Bi-pap 50 06/18/16 15:30 88 18 113/88 99 Bi-pap 50 06/18/16 15:00 88 18 110/74 99 Bi-pap 30 06/18/16 14:50 46 19 95 Facial 50 06/18/16 14:30 48 18 125/66 99 Bi-pap 30 06/18/16 14:05 95/60 06/18/16 14:00 43 18 95/60 99 Bi-pap 30 06/18/16 13:00 45 17 99/53 97 Bi-pap 30 06/18/16 12:54 46 19 95 Facial 30 06/18/16 12:00 30 06/18/16 12:00 49 06/18/16 12:00 98.1 48 17 107/59 98 Bi-pap 30 06/18/16 11:00 57 17 116/68 98 Bi-pap 30 06/18/16 10:53 61 25 98 Facial 30 Status: awake, other - on BIPAP Condition: critical HEENT: atraumatic Neck: full ROM Lungs: clear Heart: HR/BP stable, HR/BP unstable Abdomen: soft, non-tender, feeding tube Extremities: no C/C/E Decubiti: location Micro: Microbiology Date/Time Source Procedure Growth Status 06/17/16 05:30 Nasal Nares MRSA Culture - Final Staphylococcus Aureus - Mrsa Complete 06/17/16 05:30 Rectum VRE Culture - Final Enterococcus Faecalis - Vre Enterococcus Faecium - Vre Complete Accucheck: 76 Critical Care - Subjective ROS Limited/Unobtainable: Yes ICU Day: 2 Intubation Day: on bipap Condition: critical EKG Rhythm: Sinus Rhythm FI02: 50 Sputum Amount: None Drips: Dobutamin drip I&O: Intake and Output 06/18/16 06/19/16 19:00 07:00 Intake Total 112.835 ml 767.158 ml Output Total 650 ml 450 ml Balance -537.165 ml 317.158 ml Intake Oral 80 ml IV Total 112.835 ml 687.158 ml Output Urine Total 650 ml 450 ml CXR: bilateral effusion, edema Labs: Laboratory Tests Test 06/19/16 05:00 06/19/16 08:19 White Blood Count 9.9 K/UL (4.8-10.8) Red Blood Count 3.02 M/UL (4.70-6.10) L Hemoglobin 11.8 G/DL (14.2-18.0) L Hematocrit 30.1 % (42.0-52.0) L Mean Corpuscular Volume 100 FL (80-99) H Mean Corpuscular Hemoglobin 38.9 PG (27.0-31.0) H Mean Corpuscular Hemoglobin Concent 39.0 G/DL (32.0-36.0) H Red Cell Distribution Width 18.5 % (11.6-14.8) H Platelet Count 35 K/UL (150-450) L Mean Platelet Volume 10.0 FL (6.5-10.1) Neutrophils (%) (Auto) % (45.0-75.0) Lymphocytes (%) (Auto) % (20.0-45.0) Monocytes (%) (Auto) % (1.0-10.0) Eosinophils (%) (Auto) % (0.0-3.0) Basophils (%) (Auto) % (0.0-2.0) Differential Total Cells Counted 100 Neutrophils % (Manual) 80 % (45-75) H Lymphocytes % (Manual) 9 % (20-45) L Monocytes % (Manual) 2 % (1-10) Eosinophils % (Manual) 0 % (0-3) Basophils % (Manual) 0 % (0-2) Myelocytes % 2 % (0-0) H Band Neutrophils 7 % (0-8) Platelet Estimate Decreased L Platelet Morphology Normal Hypochromasia 1+ Anisocytosis 1+ Macrocytosis 1+ Sodium Level 143 mEQ/L (135-145) Potassium Level 4.3 mEQ/L (3.4-4.9) Chloride Level 100 mEQ/L (98-107) Carbon Dioxide Level 28 mEQ/L (20-30) Anion Gap 15 (5-15) Blood Urea Nitrogen 60 mg/dL (7-23) H Creatinine 1.5 mg/dL (0.7-1.2) H Estimat Glomerular Filtration Rate mL/min (>60) Glucose Level 98 mg/dL (74-106) Calcium Level 8.9 mg/dL (8.6-10.2) Phosphorus Level 3.5 mg/dL (2.5-4.8) Magnesium Level 2.0 mg/dL (1.7-2.5) Total Bilirubin 1.7 mg/dL (0.0-1.2) H Direct Bilirubin 0.7 mg/dL (0.1-0.3) H Aspartate Amino Transf (AST/SGOT) 47 U/L (5-40) H Alanine Aminotransferase (ALT/SGPT) 14 U/L (3-41) Alkaline Phosphatase 210 U/L (40-129) H Troponin I 1.59 ng/mL (<=0.30) *H Total Protein 5.4 g/dL (6.6-8.7) L Albumin 1.9 g/dL (3.5-5.2) L Globulin 3.5 g/dL Albumin/Globulin Ratio 0.5 (1.0-2.7) L Arterial Blood pH 7.450 (7.350-7.450) Arterial Blood Partial Pressure CO2 49.0 mmHg (35.0-45.0) H Arterial Blood Partial Pressure O2 65.0 mmHg (75.0-100.0) L Arterial Blood HCO3 33.0 mmol/L (22.0-26.0) H Arterial Blood Oxygen Saturation 92.0 % (92.0-98.0) Arterial Blood Base Excess 8 Hector Test IJEOMA ALMARAZ Jun 19, 2016 10:52
--- NOTE | 2016-06-19 11:06 | General Progress Note ---
Assessment/Plan Status: unchanged Status Narrative stable Scr Assessment/Plan status: Acute on Chronic Kidney disease Acute respiratory failure with hypoxia BradyArrythmia CHF exacerbation Cellulitis HypoThyroidism TSH 35 Plan: pulmonary toilet diuretics echo titrate fio2 Vanco for cellulitis of legs wound care monitor renal parameters- Avoid nephrotoxics Subjective ROS Limited/Unobtainable: No Constitutional: Reports: malaise, weakness Allergies: Coded Allergies: GABAPENTIN (Verified Allergy, Unknown, 06/17/16) PREGABALIN (Verified Allergy, Unknown, 06/17/16) Objective Last 24 Hour Vital Signs Date Time Temp Pulse Resp B/P Pulse Ox O2 Delivery O2 Flow Rate FiO2 06/19/16 10:41 62 34 100 Facial 50 06/19/16 10:00 62 20 97/52 100 Bi-pap 50 06/19/16 09:30 51 20 100/57 100 Bi-pap 50 06/19/16 09:00 97.8 59 20 98/59 100 Bi-pap 50 06/19/16 08:47 50 17 100 Facial 50 06/19/16 08:30 97.8 60 20 96/60 100 Bi-pap 50 06/19/16 08:00 97.8 57 28 93/52 100 Bi-pap 50 06/19/16 08:00 50 06/19/16 08:00 57 06/19/16 07:00 Bi-pap 06/19/16 07:00 67 35 100 Facial 50 06/19/16 07:00 100 Bi-pap 50 06/19/16 06:00 52 19 97/46 100 Bi-pap 50 06/19/16 05:30 62 35 100 Facial 50 06/19/16 05:30 61 26 94/51 100 Bi-pap 50 06/19/16 05:00 61 26 95/49 99 Bi-pap 50 06/19/16 04:30 52 18 85/48 100 Bi-pap 50 06/19/16 04:00 97.7 63 22 107/58 99 Bi-pap 50 06/19/16 04:00 50 06/19/16 04:00 63 06/19/16 03:30 65 19 107/62 98 Bi-pap 50 06/19/16 03:15 50 35 100 Facial 50 06/19/16 03:00 50 19 87/43 100 Bi-pap 50 06/19/16 02:30 50 20 86/58 100 Bi-pap 50 06/19/16 02:00 52 20 90/43 100 Bi-pap 50 06/19/16 01:30 53 19 95/43 100 Bi-pap 50 06/19/16 01:29 53 18 100 Facial 50 06/19/16 01:00 57 18 88/46 100 Bi-pap 50 06/19/16 00:30 63 19 99/51 100 Bi-pap 50 06/19/16 00:00 97.8 94 19 124/83 99 Bi-pap 50 06/19/16 00:00 94 06/19/16 00:00 50 06/18/16 23:45 99 25 129/98 96 Bi-pap 50 06/18/16 23:30 83 17 109/82 100 Bi-pap 50 06/18/16 23:27 84 16 99 Facial 50 06/18/16 23:15 84 16 112/83 99 Bi-pap 50 06/18/16 23:00 84 25 114/81 95 Bi-pap 50 06/18/16 22:30 84 25 116/77 95 Bi-pap 50 06/18/16 22:00 76 25 118/77 95 Bi-pap 50 06/18/16 22:00 73 18 118/77 98 Bi-pap 50 06/18/16 21:45 81 25 119/71 95 Bi-pap 50 06/18/16 21:35 98/54 06/18/16 21:30 61 19 98/54 99 Bi-pap 50 06/18/16 21:15 65 39 103/64 99 Bi-pap 50 06/18/16 21:14 69 21 99 Facial 50 06/18/16 21:00 98.4 87 20 119/71 97 Bi-pap 50 06/18/16 20:30 93 19 108/71 99 Bi-pap 50 06/18/16 20:00 50 06/18/16 20:00 81 19 117/79 95 Bi-pap 50 8 20:00 82 06/18/16 19:30 93 18 115/76 95 Bi-pap 50 8/ 19:30 85 21 98 Facial 50 06/18/16 19:30 100 Bi-pap 50 06/18/16 19:30 Bi-pap 06/18/16 19:00 85 17 122/85 95 Bi-pap 50 06/18/16 18:30 82 17 125/78 95 Bi-pap 50 06/18/16 18:00 80 17 122/80 95 Bi-pap 50 06/18/16 17:36 92 19 94 Facial 50 06/18/16 17:30 91 26 119/97 96 Bi-pap 50 06/18/16 17:00 93 30 137/77 96 Bi-pap 50 06/18/16 16:30 87 18 124/83 99 Bi-pap 50 06/18/16 16:00 50 06/18/16 16:00 88 06/18/16 16:00 98.2 88 18 123/82 99 Bi-pap 50 06/18/16 15:30 88 18 113/88 99 Bi-pap 50 06/18/16 15:00 88 18 110/74 99 Bi-pap 30 06/18/16 14:50 46 19 95 Facial 50 06/18/16 14:30 48 18 125/66 99 Bi-pap 30 06/18/16 14:05 95/60 06/18/16 14:00 43 18 95/60 99 Bi-pap 30 06/18/16 13:00 45 17 99/53 97 Bi-pap 30 06/18/16 12:54 46 19 95 Facial 30 06/18/16 12:00 30 06/18/16 12:00 49 06/18/16 12:00 98.1 48 17 107/59 98 Bi-pap 30 Intake and Output 06/18/16 06/19/16 19:00 07:00 Intake Total 112.835 ml 767.158 ml Output Total 650 ml 450 ml Balance -537.165 ml 317.158 ml Intake Oral 80 ml IV Total 112.835 ml 687.158 ml Output Urine Total 650 ml 450 ml Laboratory Tests 06/19/16 05:00: White Blood Count 9.9, Red Blood Count 3.02L, Hemoglobin 11.8L, Hematocrit 30.1L , Mean Corpuscular Volume 100H, Mean Corpuscular Hemoglobin 38.9H, Mean Corpuscular Hemoglobin Concent 39.0H, Red Cell Distribution Width 18.5H, Platelet Count 35L, Mean Platelet Volume 10.0, Neutrophils (%) (Auto) , Lymphocytes (%) (Auto) , Monocytes (%) (Auto) , Eosinophils (%) (Auto) , Basophils (%) (Auto) , Differential Total Cells Counted 100, Neutrophils % ( Manual) 80H, Lymphocytes % (Manual) 9L, Monocytes % (Manual) 2, Eosinophils % ( Manual) 0, Basophils % (Manual) 0, Myelocytes % 2H, Band Neutrophils 7, Platelet Estimate DecreasedL, Platelet Morphology Normal, Hypochromasia 1+, Anisocytosis 1+, Macrocytosis 1+, Sodium Level 143, Potassium Level 4.3, Chloride Level 100, Carbon Dioxide Level 28, Anion Gap 15, Blood Urea Nitrogen 60H, Creatinine 1.5H, Estimat Glomerular Filtration Rate , Glucose Level 98, Calcium Level 8.9, Phosphorus Level 3.5, Magnesium Level 2.0, Total Bilirubin 1.7H, Direct Bilirubin 0.7H, Aspartate Amino Transf (AST/SGOT) 47H, Alanine Aminotransferase (ALT/SGPT) 14, Alkaline Phosphatase 210H, Troponin I 1.59*H, Total Protein 5.4L, Albumin 1.9L, Globulin 3.5, Albumin/Globulin Ratio 0.5L 06/19/16 08:19: Arterial Blood pH 7.450, Arterial Blood Partial Pressure CO2 49.0H, Arterial Blood Partial Pressure O2 65.0L, Arterial Blood HCO3 33.0H, Arterial Blood Oxygen Saturation 92.0, Arterial Blood Base Excess 8, Hector Test Height (Feet): 6 Height (Inches): 0.00 Weight (Pounds): 136 General Appearance: lethargic, mild distress EENT: other - O2Mask Cardiovascular: bradycardia Respiratory/Chest: decreased breath sounds Abdomen: soft, distended Objective other PE not changed OZIEL CHAPMAN Jun 19, 2016 11:06
--- NOTE | 2016-06-19 11:44 | Diagnostic Imaging Report ---
Indication: DYSPNEA Technique: One view of the chest Comparison: 06/17/2016, 06/18/2016 post PICC radiograph Findings: Again demonstrated are bilateral pleural effusions and interstitial congestion. Congestion appears slightly improved. The heart is probably enlarged. Right arm PICC now present. Impression: Persistent although minimally improved bilateral interstitial edema. Persistent bilateral pleural effusions
[2016-06-19] MEDS ORDERED: NS 275ml ONE (15:24)
--- NOTE | 2016-06-19 15:31 | Infectious Diseases Prog Note ---
Assessment/Plan Assessment/Plan ASSESSMENT: 75 y/o male with: // BLE cellulitis / chronic right heel ulcer, probable osteomyelitis - elevated CRP // Possible HCAP - CXR 06/19: Persistent although minimally improved bilateral interstitial edema. Persistent bilateral pleural effusions // Shock / pressors - septic vs cardiogenic // Acute leukocytosis - resolved, afebrile // Elevated troponin - h/o ICMO, EF 20-25%, mod MR, TR, mild pulmonary HTN - [facility] cardiology has recommended LHC prior to any potential anesthesia, high risk surgical candidate // Acute respiratory failure SP - off BiPAP ?CHF exacerbation ( elevated BNP ) ?HCAP. - CXR 06/19: Persistent although minimally improved bilateral interstitial edema. Persistent bilateral pleural effusions // PAD // CKD // DM2 - HbA1c 7.6% // Abnl TFTs // TCP // Noncompliance // MRSA, VRE colonized // No ABX allergies // DNR/I PLAN: - continue IV vancomycin, levaquin, zosyn d# 2. Unlikely cure osteomyelitis with IV ABX given severe PAD, low cardiac output, not currently a surgical candidate. PO suppressive ABX if survives - monitor CBC, temperatures - monitor BMP - monitor CXR - wound care - LHC, re-vascularization if pt agrees - BiPAP prn - pressor support, wean as tolerated Subjective Allergies: Coded Allergies: GABAPENTIN (Verified Allergy, Unknown, 06/17/16) PREGABALIN (Verified Allergy, Unknown, 06/17/16) Subjective remains afebrile on pressors off BiPAP acute leukocytosis resolved now DNR Objective Vital Signs Last 24 Hour Vital Signs Date Time Temp Pulse Resp B/P Pulse Ox O2 Delivery O2 Flow Rate FiO2 06/19/16 15:08 65 24 100/54 96 Simple Mask 50 06/19/16 14:00 97.6 66 26 99/55 96 Simple Mask 50 06/19/16 13:00 65 24 103/57 95 Simple Mask 50 06/19/16 12:00 15.0 50 06/19/16 12:00 66 06/19/16 12:00 66 22 106/49 50 Simple Mask 50 06/19/16 11:00 97.9 62 20 101/63 100 Bi-pap 50 06/19/16 10:41 62 34 100 Facial 50 06/19/16 10:00 62 20 97/52 100 Bi-pap 50 06/19/16 09:30 51 20 100/57 100 Bi-pap 50 06/19/16 09:00 97.8 59 20 98/59 100 Bi-pap 50 06/19/16 08:47 50 17 100 Facial 50 06/19/16 08:30 97.8 60 20 96/60 100 Bi-pap 50 06/19/16 08:00 97.8 57 28 93/52 100 Bi-pap 50 06/19/16 08:00 50 06/19/16 08:00 57 06/19/16 07:00 Bi-pap 06/19/16 07:00 67 35 100 Facial 50 06/19/16 07:00 100 Bi-pap 50 06/19/16 06:00 52 19 97/46 100 Bi-pap 50 06/19/16 05:30 62 35 100 Facial 50 06/19/16 05:30 61 26 94/51 100 Bi-pap 50 06/19/16 05:00 61 26 95/49 99 Bi-pap 50 06/19/16 04:30 52 18 85/48 100 Bi-pap 50 06/19/16 04:00 97.7 63 22 107/58 99 Bi-pap 50 06/19/16 04:00 50 06/19/16 04:00 63 06/19/16 03:30 65 19 107/62 98 Bi-pap 50 06/19/16 03:15 50 35 100 Facial 50 06/19/16 03:00 50 19 87/43 100 Bi-pap 50 06/19/16 02:30 50 20 86/58 100 Bi-pap 50 06/19/16 02:00 52 20 90/43 100 Bi-pap 50 06/19/16 01:30 53 19 95/43 100 Bi-pap 50 06/19/16 01:29 53 18 100 Facial 50 06/19/16 01:00 57 18 88/46 100 Bi-pap 50 06/19/16 00:30 63 19 99/51 100 Bi-pap 50 06/19/16 00:00 97.8 94 19 124/83 99 Bi-pap 50 06/19/16 00:00 94 06/19/16 00:00 50 06/18/16 23:45 99 25 129/98 96 Bi-pap 50 06/18/16 23:30 83 17 109/82 100 Bi-pap 50 06/18/16 23:27 84 16 99 Facial 50 06/18/16 23:15 84 16 112/83 99 Bi-pap 50 06/18/16 23:00 84 25 114/81 95 Bi-pap 50 06/18/16 22:30 84 25 116/77 95 Bi-pap 50 06/18/16 22:00 76 25 118/77 95 Bi-pap 50 06/18/16 22:00 73 18 118/77 98 Bi-pap 50 06/18/16 21:45 81 25 119/71 95 Bi-pap 50 06/18/16 21:35 98/54 06/18/16 21:30 61 19 98/54 99 Bi-pap 50 06/18/16 21:15 65 39 103/64 99 Bi-pap 50 06/18/16 21:14 69 21 99 Facial 50 06/18/16 21:00 98.4 87 20 119/71 97 Bi-pap 50 06/18/16 20:30 93 19 108/71 99 Bi-pap 50 06/18/16 20:00 50 06/18/16 20:00 81 19 117/79 95 Bi-pap 50 06/18/16 20:00 82 06/18/16 19:30 93 18 115/76 95 Bi-pap 50 06/18/16 19:30 85 21 98 Facial 50 06/18/16 19:30 100 Bi-pap 50 06/18/16 19:30 Bi-pap 06/18/16 19:00 85 17 122/85 95 Bi-pap 50 06/18/16 18:30 82 17 125/78 95 Bi-pap 50 06/18/16 18:00 80 17 122/80 95 Bi-pap 50 06/18/16 17:36 92 19 94 Facial 50 06/18/16 17:30 91 26 119/97 96 Bi-pap 50 06/18/16 17:00 93 30 137/77 96 Bi-pap 50 06/18/16 16:30 87 18 124/83 99 Bi-pap 50 06/18/16 16:00 50 06/18/16 16:00 88 06/18/16 16:00 98.2 88 18 123/82 99 Bi-pap 50 06/18/16 15:30 88 18 113/88 99 Bi-pap 50 Height (Feet): 6 Height (Inches): 0.00 Weight (Pounds): 136 General Appearance: no acute distress Respiratory/Chest: decreased breath sounds Cardiovascular: normal rate, regular rhythm Abdomen: normal bowel sounds, soft, non tender, non distended Microbiology Date/Time Source Procedure Growth Status 06/17/16 05:30 Nasal Nares MRSA Culture - Final Staphylococcus Aureus - Mrsa Complete 06/17/16 05:30 Rectum VRE Culture - Final Enterococcus Faecalis - Vre Enterococcus Faecium - Vre Complete Laboratory Tests Test 06/19/16 05:00 06/19/16 08:19 White Blood Count 9.9 K/UL (4.8-10.8) Red Blood Count 3.02 M/UL (4.70-6.10) L Hemoglobin 11.8 G/DL (14.2-18.0) L Hematocrit 30.1 % (42.0-52.0) L Mean Corpuscular Volume 100 FL (80-99) H Mean Corpuscular Hemoglobin 38.9 PG (27.0-31.0) H Mean Corpuscular Hemoglobin Concent 39.0 G/DL (32.0-36.0) H Red Cell Distribution Width 18.5 % (11.6-14.8) H Platelet Count 35 K/UL (150-450) L Mean Platelet Volume 10.0 FL (6.5-10.1) Neutrophils (%) (Auto) % (45.0-75.0) Lymphocytes (%) (Auto) % (20.0-45.0) Monocytes (%) (Auto) % (1.0-10.0) Eosinophils (%) (Auto) % (0.0-3.0) Basophils (%) (Auto) % (0.0-2.0) Differential Total Cells Counted 100 Neutrophils % (Manual) 80 % (45-75) H Lymphocytes % (Manual) 9 % (20-45) L Monocytes % (Manual) 2 % (1-10) Eosinophils % (Manual) 0 % (0-3) Basophils % (Manual) 0 % (0-2) Myelocytes % 2 % (0-0) H Band Neutrophils 7 % (0-8) Platelet Estimate Decreased L Platelet Morphology Normal Hypochromasia 1+ Anisocytosis 1+ Macrocytosis 1+ Sodium Level 143 mEQ/L (135-145) Potassium Level 4.3 mEQ/L (3.4-4.9) Chloride Level 100 mEQ/L (98-107) Carbon Dioxide Level 28 mEQ/L (20-30) Anion Gap 15 (5-15) Blood Urea Nitrogen 60 mg/dL (7-23) H Creatinine 1.5 mg/dL (0.7-1.2) H Estimat Glomerular Filtration Rate mL/min (>60) Glucose Level 98 mg/dL (74-106) Calcium Level 8.9 mg/dL (8.6-10.2) Phosphorus Level 3.5 mg/dL (2.5-4.8) Magnesium Level 2.0 mg/dL (1.7-2.5) Total Bilirubin 1.7 mg/dL (0.0-1.2) H Direct Bilirubin 0.7 mg/dL (0.1-0.3) H Aspartate Amino Transf (AST/SGOT) 47 U/L (5-40) H Alanine Aminotransferase (ALT/SGPT) 14 U/L (3-41) Alkaline Phosphatase 210 U/L (40-129) H Troponin I 1.59 ng/mL (<=0.30) *H Total Protein 5.4 g/dL (6.6-8.7) L Albumin 1.9 g/dL (3.5-5.2) L Globulin 3.5 g/dL Albumin/Globulin Ratio 0.5 (1.0-2.7) L Arterial Blood pH 7.450 (7.350-7.450) Arterial Blood Partial Pressure CO2 49.0 mmHg (35.0-45.0) H Arterial Blood Partial Pressure O2 65.0 mmHg (75.0-100.0) L Arterial Blood HCO3 33.0 mmol/L (22.0-26.0) H Arterial Blood Oxygen Saturation 92.0 % (92.0-98.0) Arterial Blood Base Excess 8 Hector Test Current Medications Medications (Trade) Dose Ordered Sig/Jazmyne Route PRN Reason Start Time Stop Time Status Last Admin Dose Admin Acetaminophen (Tylenol) 650 mg Q4H PRN ORAL Fever 06/17/16 19:45 07/17/16 19:44 Albuterol/ Ipratropium (DuoNeb 0.5-3(2.5)mg/3ml) 3 ml Q4H PRN HHN Shortness of Breath 06/17/16 20:00 06/22/16 19:59 Collagenase (Santyl) 1 applic DAILY TOPIC 06/18/16 09:00 07/18/16 08:59 06/19/16 09:37 Dextrose (Dextrose 50%) STAT PRN IV Hypoglycemia 06/18/16 06:00 07/18/16 05:59 Dobutamine HCl 250 ml @ 9.253 mls/ hr Q24H IV 06/18/16 21:30 07/18/16 21:29 06/18/16 21:35 Furosemide/ Dextrose (Lasix/D5W) 100 ml @ 10 mls/hr Q10H IV 06/19/16 12:00 07/19/16 11:59 06/19/16 12:20 Insulin Aspart (NovoLOG) BEFORE MEALS AND HS SUBQ 06/17/16 21:00 07/17/16 20:59 Levofloxacin 150 ml @ 100 mls/hr Q48H IVPB 06/18/16 20:00 06/25/16 19:59 06/18/16 19:43 Levothyroxine Sodium (Synthroid) 100 mcg DAILY@0630 ORAL 06/18/16 06:30 07/18/16 06:29 06/19/16 06:18 Lorazepam (Ativan 2mg/ml 1ml) 1 mg Q2H PRN IV For Anxiety 06/18/16 12:00 06/25/16 11:59 06/19/16 08:29 Ondansetron HCl (Zofran) 4 mg Q6H PRN IVP Nausea & Vomiting 06/17/16 20:00 07/17/16 19:59 Pantoprazole (Protonix) 40 mg DAILY IVP 06/18/16 09:00 07/18/16 08:59 06/19/16 09:37 Piperacillin Sod/ Tazobactam Sod 3.375 gm/Dextrose 110 ml @ 27.5 mls/hr Q8H IVPB 06/18/16 16:30 06/25/16 16:29 06/19/16 08:29 Polyethylene Glycol (Miralax) 17 gm DAILY ORAL 06/18/16 09:00 07/18/16 08:59 06/19/16 09:37 Polyethylene Glycol (Miralax) 17 gm DAILYPRN PRN ORAL Constipation 06/17/16 20:00 07/17/16 19:59 Tamsulosin HCl (Flomax) 0.4 mg BEDTIME ORAL 06/17/16 21:00 07/17/16 20:59 Temazepam (Restoril) 15 mg HSPRN PRN ORAL Insomnia 06/17/16 20:00 06/24/16 19:59 Vancomycin HCl 750 mg/Dextrose 275 ml @ 183.708 mls/hr Q24H IVPB 06/18/16 20:00 06/23/16 19:59 06/18/16 19:43 Vancomycin HCl 1 ea 1 ea DAILY PRN MISC Per rx protocol 06/18/16 15:30 07/18/16 15:29 LIO LEMUS Jun 19, 2016 15:31
--- NOTE | 2016-06-19 17:12 | Podiatric Progress Note ---
Assessment/Plan Patient Keegan Arora is a 75 year old male who was admitted on Jun 17, 2016 at 04:18 with acute respiratory failure Problems: (1) Ischemic ulcer of right heel (2) Peripheral vascular disease (3) Cellulitis Assessment/Plan - Patient is a poor surgical candidate secondary to cardiac status. Will consider surgical intervention once medically optimized. - Continue current wound care. - Offload heels. - Continue antibiotics per infectious disease specialist recommendations. Subjective Reason for consult Bilateral lower extremity multiple wounds and cellulitis Allergies: Coded Allergies: GABAPENTIN (Verified Allergy, Unknown, 06/17/16) PREGABALIN (Verified Allergy, Unknown, 06/17/16) Subjective Patient is unable to communicate currently Objective Exam Last 24 Hour Vital Signs Date Time Temp Pulse Resp B/P Pulse Ox O2 Delivery O2 Flow Rate FiO2 06/19/16 16:00 15.0 50 06/19/16 16:00 68 06/19/16 16:00 97.8 68 24 97/53 97 Simple Mask 50 06/19/16 15:08 65 24 100/54 96 Simple Mask 50 06/19/16 14:00 97.6 66 26 99/55 96 Simple Mask 50 06/19/16 13:00 65 24 103/57 95 Simple Mask 50 06/19/16 12:00 15.0 50 06/19/16 12:00 66 06/19/16 12:00 66 22 106/49 50 Simple Mask 50 06/19/16 11:00 97.9 62 20 101/63 100 Bi-pap 50 06/19/16 10:41 62 34 100 Facial 50 06/19/16 10:00 62 20 97/52 100 Bi-pap 50 06/19/16 09:30 51 20 100/57 100 Bi-pap 50 06/19/16 09:00 97.8 59 20 98/59 100 Bi-pap 50 06/19/16 08:47 50 17 100 Facial 50 06/19/16 08:30 97.8 60 20 96/60 100 Bi-pap 50 06/19/16 08:00 97.8 57 28 93/52 100 Bi-pap 50 06/19/16 08:00 50 06/19/16 08:00 57 06/19/16 07:00 Bi-pap 06/19/16 07:00 67 35 100 Facial 50 06/19/16 07:00 100 Bi-pap 50 06/19/16 06:00 52 19 97/46 100 Bi-pap 50 06/19/16 05:30 62 35 100 Facial 50 06/19/16 05:30 61 26 94/51 100 Bi-pap 50 06/19/16 05:00 61 26 95/49 99 Bi-pap 50 06/19/16 04:30 52 18 85/48 100 Bi-pap 50 06/19/16 04:00 97.7 63 22 107/58 99 Bi-pap 50 06/19/16 04:00 50 06/19/16 04:00 63 06/19/16 03:30 65 19 107/62 98 Bi-pap 50 06/19/16 03:15 50 35 100 Facial 50 06/19/16 03:00 50 19 87/43 100 Bi-pap 50 06/19/16 02:30 50 20 86/58 100 Bi-pap 50 06/19/16 02:00 52 20 90/43 100 Bi-pap 50 06/19/16 01:30 53 19 95/43 100 Bi-pap 50 06/19/16 01:29 53 18 100 Facial 50 06/19/16 01:00 57 18 88/46 100 Bi-pap 50 06/19/16 00:30 63 19 99/51 100 Bi-pap 50 06/19/16 00:00 97.8 94 19 124/83 99 Bi-pap 50 06/19/16 00:00 94 06/19/16 00:00 50 06/18/16 23:45 99 25 129/98 96 Bi-pap 50 06/18/16 23:30 83 17 109/82 100 Bi-pap 50 06/18/16 23:27 84 16 99 Facial 50 06/18/16 23:15 84 16 112/83 99 Bi-pap 50 06/18/16 23:00 84 25 114/81 95 Bi-pap 50 06/18/16 22:30 84 25 116/77 95 Bi-pap 50 06/18/16 22:00 76 25 118/77 95 Bi-pap 50 06/18/16 22:00 73 18 118/77 98 Bi-pap 50 06/18/16 21:45 81 25 119/71 95 Bi-pap 50 06/18/16 21:35 98/54 06/18/16 21:30 61 19 98/54 99 Bi-pap 50 06/18/16 21:15 65 39 103/64 99 Bi-pap 50 06/18/16 21:14 69 21 99 Facial 50 06/18/16 21:00 98.4 87 20 119/71 97 Bi-pap 50 06/18/16 20:30 93 19 108/71 99 Bi-pap 50 06/18/16 20:00 50 06/18/16 20:00 81 19 117/79 95 Bi-pap 50 06/18/16 20:00 82 06/18/16 19:30 93 18 115/76 95 Bi-pap 50 06/18/16 19:30 85 21 98 Facial 50 06/18/16 19:30 100 Bi-pap 50 06/18/16 19:30 Bi-pap 06/18/16 19:00 85 17 122/85 95 Bi-pap 50 06/18/16 18:30 82 17 125/78 95 Bi-pap 50 06/18/16 18:00 80 17 122/80 95 Bi-pap 50 06/18/16 17:36 92 19 94 Facial 50 06/18/16 17:30 91 26 119/97 96 Bi-pap 50 Laboratory Tests Test 06/19/16 05:00 06/19/16 08:19 White Blood Count 9.9 K/UL (4.8-10.8) Red Blood Count 3.02 M/UL (4.70-6.10) L Hemoglobin 11.8 G/DL (14.2-18.0) L Hematocrit 30.1 % (42.0-52.0) L Mean Corpuscular Volume 100 FL (80-99) H Mean Corpuscular Hemoglobin 38.9 PG (27.0-31.0) H Mean Corpuscular Hemoglobin Concent 39.0 G/DL (32.0-36.0) H Red Cell Distribution Width 18.5 % (11.6-14.8) H Platelet Count 35 K/UL (150-450) L Mean Platelet Volume 10.0 FL (6.5-10.1) Neutrophils (%) (Auto) % (45.0-75.0) Lymphocytes (%) (Auto) % (20.0-45.0) Monocytes (%) (Auto) % (1.0-10.0) Eosinophils (%) (Auto) % (0.0-3.0) Basophils (%) (Auto) % (0.0-2.0) Differential Total Cells Counted 100 Neutrophils % (Manual) 80 % (45-75) H Lymphocytes % (Manual) 9 % (20-45) L Monocytes % (Manual) 2 % (1-10) Eosinophils % (Manual) 0 % (0-3) Basophils % (Manual) 0 % (0-2) Myelocytes % 2 % (0-0) H Band Neutrophils 7 % (0-8) Platelet Estimate Decreased L Platelet Morphology Normal Hypochromasia 1+ Anisocytosis 1+ Macrocytosis 1+ Sodium Level 143 mEQ/L (135-145) Potassium Level 4.3 mEQ/L (3.4-4.9) Chloride Level 100 mEQ/L (98-107) Carbon Dioxide Level 28 mEQ/L (20-30) Anion Gap 15 (5-15) Blood Urea Nitrogen 60 mg/dL (7-23) H Creatinine 1.5 mg/dL (0.7-1.2) H Estimat Glomerular Filtration Rate mL/min (>60) Glucose Level 98 mg/dL (74-106) Calcium Level 8.9 mg/dL (8.6-10.2) Phosphorus Level 3.5 mg/dL (2.5-4.8) Magnesium Level 2.0 mg/dL (1.7-2.5) Total Bilirubin 1.7 mg/dL (0.0-1.2) H Direct Bilirubin 0.7 mg/dL (0.1-0.3) H Aspartate Amino Transf (AST/SGOT) 47 U/L (5-40) H Alanine Aminotransferase (ALT/SGPT) 14 U/L (3-41) Alkaline Phosphatase 210 U/L (40-129) H Troponin I 1.59 ng/mL (<=0.30) *H Total Protein 5.4 g/dL (6.6-8.7) L Albumin 1.9 g/dL (3.5-5.2) L Globulin 3.5 g/dL Albumin/Globulin Ratio 0.5 (1.0-2.7) L Arterial Blood pH 7.450 (7.350-7.450) Arterial Blood Partial Pressure CO2 49.0 mmHg (35.0-45.0) H Arterial Blood Partial Pressure O2 65.0 mmHg (75.0-100.0) L Arterial Blood HCO3 33.0 mmol/L (22.0-26.0) H Arterial Blood Oxygen Saturation 92.0 % (92.0-98.0) Arterial Blood Base Excess 8 Hector Test Microbiology Date/Time Source Procedure Growth Status 06/17/16 05:30 Nasal Nares MRSA Culture - Final Staphylococcus Aureus - Mrsa Complete 06/17/16 05:30 Rectum VRE Culture - Final Enterococcus Faecalis - Vre Enterococcus Faecium - Vre Complete Exam Narrative Bilateral lower extremities with multiple leg wounds in various stages of healing. Right heel wound dressing is clean, dry, and in tact. No strikethrough noted. Heel offloading cushions are being utilized Dermatological Wound Assessment : Exudate Amount: Moderate Momo Pitt DPM Jun 19, 2016 17:11
[2016-06-19] MEDS: Vancomycin 750mg/D5W 275ml IVPB SCH ×2 (20:06)
[2016-06-19] MEDS: Tamsulosin 0.4mg cap ORAL SCH (20:25)
[2016-06-19] MEDS ORDERED: DOBUTamine 250mg/250ml Premix 250 ML IV SCH (20:30)
--- NOTE | 2016-06-19 21:38 | Cardiology Progress Note ---
Assessment/Plan Assessment/Plan 1. Congestive heart failure. 2. Cardiomyopathy. 3. Mitral regurgitation. 4. Renal insufficiency. 5. Right bundle-branch conduction defect. 6. Pulmonary hypertension. 7. History of cardiorenal syndrome. 8. Hyperlipidemia. 9. Bradycardia 10. hypotesnion 11. respiratory acidosis / failure 12. RBBB 13. NSTEMI 14. thormbocytopenia on dobutamine low dose for lv supposrt will need repeat trop plt are toovlow to safely administer anti plt agents now heart is better edema still present in dependent areas ekg reviwed tele reviewed personally nwo on bipap duplex neg echo will be repeated labs revwied cr is imporved repeat labs in am diuretics if bp allow s coag to see if in dic sdaneshrad 35 min Subjective Subjective on bipap Objective Last 24 Hour Vital Signs Date Time Temp Pulse Resp B/P Pulse Ox O2 Delivery O2 Flow Rate FiO2 06/19/16 21:00 60 28 98/59 97 Simple Mask 50 06/19/16 20:11 97.0 67 26 104/74 96 Simple Mask 50 06/19/16 20:00 50 06/19/16 19:30 100 Venturi Mask 12.0 50 06/19/16 19:30 Venturi Mask 12.0 50 06/19/16 19:00 64 28 101/57 97 Simple Mask 50 06/19/16 18:00 67 28 104/60 96 Simple Mask 50 06/19/16 17:00 97.8 67 26 108/60 96 Simple Mask 50 06/19/16 16:00 15.0 50 06/19/16 16:00 68 06/19/16 16:00 97.8 68 24 97/53 97 Simple Mask 50 06/19/16 15:08 65 24 100/54 96 Simple Mask 50 06/19/16 14:00 97.6 66 26 99/55 96 Simple Mask 50 06/19/16 13:00 65 24 103/57 95 Simple Mask 50 06/19/16 12:00 15.0 50 06/19/16 12:00 66 06/19/16 12:00 66 22 106/49 50 Simple Mask 50 06/19/16 11:00 97.9 62 20 101/63 100 Bi-pap 50 06/19/16 10:41 62 34 100 Facial 50 06/19/16 10:00 62 20 97/52 100 Bi-pap 50 06/19/16 09:30 51 20 100/57 100 Bi-pap 50 06/19/16 09:00 97.8 59 20 98/59 100 Bi-pap 50 06/19/16 08:47 50 17 100 Facial 50 06/19/16 08:30 97.8 60 20 96/60 100 Bi-pap 50 06/19/16 08:00 97.8 57 28 93/52 100 Bi-pap 50 06/19/16 08:00 50 06/19/16 08:00 57 06/19/16 07:00 Bi-pap 06/19/16 07:00 67 35 100 Facial 50 06/19/16 07:00 100 Bi-pap 50 06/19/16 06:00 52 19 97/46 100 Bi-pap 50 06/19/16 05:30 62 35 100 Facial 50 06/19/16 05:30 61 26 94/51 100 Bi-pap 50 06/19/16 05:00 61 26 95/49 99 Bi-pap 50 06/19/16 04:30 52 18 85/48 100 Bi-pap 50 06/19/16 04:00 97.7 63 22 107/58 99 Bi-pap 50 06/19/16 04:00 50 06/19/16 04:00 63 06/19/16 03:30 65 19 107/62 98 Bi-pap 50 06/19/16 03:15 50 35 100 Facial 50 06/19/16 03:00 50 19 87/43 100 Bi-pap 50 06/19/16 02:30 50 20 86/58 100 Bi-pap 50 06/19/16 02:00 52 20 90/43 100 Bi-pap 50 06/19/16 01:30 53 19 95/43 100 Bi-pap 50 06/19/16 01:29 53 18 100 Facial 50 06/19/16 01:00 57 18 88/46 100 Bi-pap 50 06/19/16 00:30 63 19 99/51 100 Bi-pap 50 06/19/16 00:00 97.8 94 19 124/83 99 Bi-pap 50 06/19/16 00:00 94 06/19/16 00:00 50 06/18/16 23:45 99 25 129/98 96 Bi-pap 50 06/18/16 23:30 83 17 109/82 100 Bi-pap 50 06/18/16 23:27 84 16 99 Facial 50 06/18/16 23:15 84 16 112/83 99 Bi-pap 50 06/18/16 23:00 84 25 114/81 95 Bi-pap 50 06/18/16 22:30 84 25 116/77 95 Bi-pap 50 06/18/16 22:00 76 25 118/77 95 Bi-pap 50 06/18/16 22:00 73 18 118/77 98 Bi-pap 50 06/18/16 21:45 81 25 119/71 95 Bi-pap 50 06/18/16 21:35 98/54 General Appearance: lethargic Neck: no JVD Cardiovascular: normal rate, regular rhythm Respiratory/Chest: decreased breath sounds Abdomen: normal bowel sounds, non tender, soft Extremities: moderate edema - dependen postion Intake and Output 06/18/16 06/19/16 19:00 07:00 Intake Total 112.835 ml 767.158 ml Output Total 650 ml 450 ml Balance -537.165 ml 317.158 ml Intake Oral 80 ml IV Total 112.835 ml 687.158 ml Output Urine Total 650 ml 450 ml Laboratory Tests Test 06/19/16 05:00 06/19/16 08:19 06/19/16 19:00 White Blood Count 9.9 K/UL (4.8-10.8) Red Blood Count 3.02 M/UL (4.70-6.10) L Hemoglobin 11.8 G/DL (14.2-18.0) L Hematocrit 30.1 % (42.0-52.0) L Mean Corpuscular Volume 100 FL (80-99) H Mean Corpuscular Hemoglobin 38.9 PG (27.0-31.0) H Mean Corpuscular Hemoglobin Concent 39.0 G/DL (32.0-36.0) H Red Cell Distribution Width 18.5 % (11.6-14.8) H Platelet Count 35 K/UL (150-450) L Mean Platelet Volume 10.0 FL (6.5-10.1) Neutrophils (%) (Auto) % (45.0-75.0) Lymphocytes (%) (Auto) % (20.0-45.0) Monocytes (%) (Auto) % (1.0-10.0) Eosinophils (%) (Auto) % (0.0-3.0) Basophils (%) (Auto) % (0.0-2.0) Differential Total Cells Counted 100 Neutrophils % (Manual) 80 % (45-75) H Lymphocytes % (Manual) 9 % (20-45) L Monocytes % (Manual) 2 % (1-10) Eosinophils % (Manual) 0 % (0-3) Basophils % (Manual) 0 % (0-2) Myelocytes % 2 % (0-0) H Band Neutrophils 7 % (0-8) Platelet Estimate Decreased L Platelet Morphology Normal Hypochromasia 1+ Anisocytosis 1+ Macrocytosis 1+ Sodium Level 143 mEQ/L (135-145) Potassium Level 4.3 mEQ/L (3.4-4.9) Chloride Level 100 mEQ/L (98-107) Carbon Dioxide Level 28 mEQ/L (20-30) Anion Gap 15 (5-15) Blood Urea Nitrogen 60 mg/dL (7-23) H Creatinine 1.5 mg/dL (0.7-1.2) H Estimat Glomerular Filtration Rate mL/min (>60) Glucose Level 98 mg/dL (74-106) Calcium Level 8.9 mg/dL (8.6-10.2) Phosphorus Level 3.5 mg/dL (2.5-4.8) Magnesium Level 2.0 mg/dL (1.7-2.5) Total Bilirubin 1.7 mg/dL (0.0-1.2) H Direct Bilirubin 0.7 mg/dL (0.1-0.3) H Aspartate Amino Transf (AST/SGOT) 47 U/L (5-40) H Alanine Aminotransferase (ALT/SGPT) 14 U/L (3-41) Alkaline Phosphatase 210 U/L (40-129) H Troponin I 1.59 ng/mL (<=0.30) *H Total Protein 5.4 g/dL (6.6-8.7) L Albumin 1.9 g/dL (3.5-5.2) L Globulin 3.5 g/dL Albumin/Globulin Ratio 0.5 (1.0-2.7) L Arterial Blood pH 7.450 (7.350-7.450) Arterial Blood Partial Pressure CO2 49.0 mmHg (35.0-45.0) H Arterial Blood Partial Pressure O2 65.0 mmHg (75.0-100.0) L Arterial Blood HCO3 33.0 mmol/L (22.0-26.0) H Arterial Blood Oxygen Saturation 92.0 % (92.0-98.0) Arterial Blood Base Excess 8 Hector Test Random Vancomycin Level 17.4 ug/mL Microbiology Date/Time Source Procedure Growth Status 06/17/16 05:30 Nasal Nares MRSA Culture - Final Staphylococcus Aureus - Mrsa Complete 06/17/16 05:30 Rectum VRE Culture - Final Enterococcus Faecalis - Vre Enterococcus Faecium - Vre Complete TAL DEE Jun 19, 2016 21:38
[2016-06-19] MEDS: DOBUTamine 250mg/250ml Premix 250 ML IV SCH (21:41)
--- NOTE | 2016-06-19 22:35 | General Progress Note ---
Progress Note Progress Note Dictated consult to follow In ICU with resp failure DNR DNI per HOG [employer] Dementia CHF COPD Renal failure [facility] resident Severe multilevel calcific PAD 2+ femorals absent pop pedal pulses Mod knee contracture Patch leg skin ulcerations Right heel wound and necrosis Rec Medical optimization Local wound care per podiatry Decub and DVT precautions Pulm f/u and optimize nutrition Right leg angio only if overall condition improves d/w [facility] CHATA SHANKAR Jun 19, 2016 22:35
--- NOTE | 2016-06-19 23:42 | Internal Med Progress Note ---
Subjective Physician Name Philippe Buckley Attending Physician Philippe Buckley MD Current Medications Medications (Trade) Dose Ordered Sig/Jazmyne Route PRN Reason Start Time Stop Time Status Last Admin Dose Admin Acetaminophen (Tylenol) 650 mg Q4H PRN ORAL Fever 06/17/16 19:45 07/17/16 19:44 Albuterol/ Ipratropium (DuoNeb 0.5-3(2.5)mg/3ml) 3 ml Q4H PRN HHN Shortness of Breath 06/17/16 20:00 06/22/16 19:59 Collagenase (Santyl) 1 applic DAILY TOPIC 06/18/16 09:00 07/18/16 08:59 06/19/16 09:37 Dextrose (Dextrose 50%) STAT PRN IV Hypoglycemia 06/18/16 06:00 07/18/16 05:59 Dobutamine HCl 250 ml @ 9.253 mls/ hr Q24H IV 06/18/16 21:30 07/18/16 21:29 06/19/16 21:41 Furosemide/ Dextrose (Lasix/D5W) 100 ml @ 10 mls/hr Q10H IV 06/19/16 12:00 07/19/16 11:59 06/19/16 20:26 Insulin Aspart (NovoLOG) BEFORE MEALS AND HS SUBQ 06/17/16 21:00 07/17/16 20:59 06/19/16 17:29 Levofloxacin 150 ml @ 100 mls/hr Q48H IVPB 06/18/16 20:00 06/25/16 19:59 06/18/16 19:43 Levothyroxine Sodium (Synthroid) 100 mcg DAILY@0630 ORAL 06/18/16 06:30 07/18/16 06:29 06/19/16 06:18 Lorazepam (Ativan 2mg/ml 1ml) 1 mg Q2H PRN IV For Anxiety 06/18/16 12:00 06/25/16 11:59 06/19/16 23:24 Ondansetron HCl (Zofran) 4 mg Q6H PRN IVP Nausea & Vomiting 06/17/16 20:00 07/17/16 19:59 Pantoprazole (Protonix) 40 mg DAILY IVP 06/18/16 09:00 07/18/16 08:59 06/19/16 09:37 Piperacillin Sod/ Tazobactam Sod 3.375 gm/Dextrose 110 ml @ 27.5 mls/hr Q8H IVPB 06/18/16 16:30 06/25/16 16:29 06/19/16 16:36 Polyethylene Glycol (Miralax) 17 gm DAILY ORAL 06/18/16 09:00 07/18/16 08:59 06/19/16 09:37 Polyethylene Glycol (Miralax) 17 gm DAILYPRN PRN ORAL Constipation 06/17/16 20:00 07/17/16 19:59 Tamsulosin HCl (Flomax) 0.4 mg BEDTIME ORAL 06/17/16 21:00 07/17/16 20:59 Temazepam (Restoril) 15 mg HSPRN PRN ORAL Insomnia 06/17/16 20:00 06/24/16 19:59 Vancomycin HCl 750 mg/Dextrose 275 ml @ 183.708 mls/hr Q24H IVPB 06/18/16 20:00 06/23/16 19:59 06/19/16 20:06 Vancomycin HCl 1 ea 1 ea DAILY PRN MISC Per rx protocol 06/18/16 15:30 07/18/16 15:29 Allergies: Coded Allergies: GABAPENTIN (Verified Allergy, Unknown, 06/17/16) PREGABALIN (Verified Allergy, Unknown, 06/17/16) Subjective in ICU, unresponsive, not verbal, hypotensive, on venti mask Objective Last Vital Signs Date Time Temp Pulse Resp B/P Pulse Ox O2 Delivery O2 Flow Rate FiO2 06/19/16 23:00 67 26 94/60 98 Simple Mask 50 06/19/16 20:11 97.0 06/19/16 19:30 12.0 Laboratory Tests Test 06/19/16 05:00 06/19/16 08:19 06/19/16 19:00 White Blood Count 9.9 K/UL (4.8-10.8) Red Blood Count 3.02 M/UL (4.70-6.10) L Hemoglobin 11.8 G/DL (14.2-18.0) L Hematocrit 30.1 % (42.0-52.0) L Mean Corpuscular Volume 100 FL (80-99) H Mean Corpuscular Hemoglobin 38.9 PG (27.0-31.0) H Mean Corpuscular Hemoglobin Concent 39.0 G/DL (32.0-36.0) H Red Cell Distribution Width 18.5 % (11.6-14.8) H Platelet Count 35 K/UL (150-450) L Mean Platelet Volume 10.0 FL (6.5-10.1) Neutrophils (%) (Auto) % (45.0-75.0) Lymphocytes (%) (Auto) % (20.0-45.0) Monocytes (%) (Auto) % (1.0-10.0) Eosinophils (%) (Auto) % (0.0-3.0) Basophils (%) (Auto) % (0.0-2.0) Differential Total Cells Counted 100 Neutrophils % (Manual) 80 % (45-75) H Lymphocytes % (Manual) 9 % (20-45) L Monocytes % (Manual) 2 % (1-10) Eosinophils % (Manual) 0 % (0-3) Basophils % (Manual) 0 % (0-2) Myelocytes % 2 % (0-0) H Band Neutrophils 7 % (0-8) Platelet Estimate Decreased L Platelet Morphology Normal Hypochromasia 1+ Anisocytosis 1+ Macrocytosis 1+ Sodium Level 143 mEQ/L (135-145) Potassium Level 4.3 mEQ/L (3.4-4.9) Chloride Level 100 mEQ/L (98-107) Carbon Dioxide Level 28 mEQ/L (20-30) Anion Gap 15 (5-15) Blood Urea Nitrogen 60 mg/dL (7-23) H Creatinine 1.5 mg/dL (0.7-1.2) H Estimat Glomerular Filtration Rate mL/min (>60) Glucose Level 98 mg/dL (74-106) Calcium Level 8.9 mg/dL (8.6-10.2) Phosphorus Level 3.5 mg/dL (2.5-4.8) Magnesium Level 2.0 mg/dL (1.7-2.5) Total Bilirubin 1.7 mg/dL (0.0-1.2) H Direct Bilirubin 0.7 mg/dL (0.1-0.3) H Aspartate Amino Transf (AST/SGOT) 47 U/L (5-40) H Alanine Aminotransferase (ALT/SGPT) 14 U/L (3-41) Alkaline Phosphatase 210 U/L (40-129) H Troponin I 1.59 ng/mL (<=0.30) *H Total Protein 5.4 g/dL (6.6-8.7) L Albumin 1.9 g/dL (3.5-5.2) L Globulin 3.5 g/dL Albumin/Globulin Ratio 0.5 (1.0-2.7) L Arterial Blood pH 7.450 (7.350-7.450) Arterial Blood Partial Pressure CO2 49.0 mmHg (35.0-45.0) H Arterial Blood Partial Pressure O2 65.0 mmHg (75.0-100.0) L Arterial Blood HCO3 33.0 mmol/L (22.0-26.0) H Arterial Blood Oxygen Saturation 92.0 % (92.0-98.0) Arterial Blood Base Excess 8 Hector Test Random Vancomycin Level 17.4 ug/mL Microbiology Date/Time Source Procedure Growth Status 06/17/16 05:30 Nasal Nares MRSA Culture - Final Staphylococcus Aureus - Mrsa Complete 06/17/16 05:30 Rectum VRE Culture - Final Enterococcus Faecalis - Vre Enterococcus Faecium - Vre Complete Intake and Output 06/18/16 06/19/16 19:00 07:00 Intake Total 112.835 ml 767.158 ml Output Total 650 ml 450 ml Balance -537.165 ml 317.158 ml Intake Oral 80 ml IV Total 112.835 ml 687.158 ml Output Urine Total 650 ml 450 ml Objective GENERAL: The patient is a thin appearing white male, unresponsive, not verbal. HEENT: PERRLA, anicteric. NECK: Supple without lymphadenopathy. CHEST: decrease air on bases, no wheezes, poor inspiratory efforts. ABDOMEN: Soft, nontender, and nondistended. EXTREMITIES: Negative for clubbing, cyanosis, or edema. right heel ulcer / dressing. RUE Piccline, UE's ecchymosis. NEUROLOGIC: limited due to patient status. Assessment/Plan Assessment/Plan 1. Congestive heart failure. 2. Cardiomyopathy. 3. Mitral regurgitation. 4. Renal insufficiency. 5. Right bundle-branch conduction defect. 6. Pulmonary hypertension. 7. History of cardiorenal syndrome. 8. Hyperlipidemia. 9. Bradycardia 10. hypotesnion 11. respiratory acidosis / failure 12. RBBB 13. NSTEMI 14. thormbocytopenia Plan: on dobutamine Drip Abx: Vanco / Zosyn / Levaquin left message for sister in Law poor prognosis monitor cultures and AM labs wound care Code status: DNR. Philippe Buckley MD Jun 19, 2016 23:42
[2016-06-20] VITALS (32 sets, daily range): BP systolic 60–122; BP diastolic 42–88
[2016-06-20] MEDS: Piperacillin/Tazobactam 3.375 GM in D5W 110 ML IVPB SCH ×2 (00:06→08:27)
[2016-06-20] MEDS: NovoLOG Insulin Flexpen SUBQ SCH (06:09)
[2016-06-20 06:17] LABS: MEAN CORPUSCULAR HEMOGLOBIN 40.4 PG (27.0-31.0); MEAN CORPUSCULAR HGB CONC 40.9 G/DL (32.0-36.0); MEAN CORPUSCULAR VOLUME 99 FL (80-99); MEAN PLATELET VOLUME 16.3 FL (6.5-10.1); PLATELET COUNT 15 K/UL (150-450); RED CELL DISTRIBUTION WIDTH 19.1 % (11.6-14.8); WHITE BLOOD COUNT 6.3 K/UL (4.8-10.8)
[2016-06-20 06:24] LABS: INR 1.4 (0.9-1.1); PROTHROMBIN TIME 14.2 SEC (9.30-11.50)
[2016-06-20 06:53] LABS: ALANINE AMINOTRANSFERASE 13 U/L (3-41); ALBUMIN/GLOBULIN RATIO 0.5 (1.0-2.7); ANION GAP 13 (5-15); ASPARTATE AMINO TRANSFERASE 39 U/L (5-40); CARBON DIOXIDE 30 mEQ/L (20-30); CHLORIDE 100 mEQ/L (98-107); CREATININE 1.7 mg/dL (0.7-1.2); HEMOLYSIS 7; MAGNESIUM 2.1 mg/dL (1.7-2.5); PHOSPHORUS 3.5 mg/dL (2.5-4.8); POTASSIUM 3.8 mEQ/L (3.4-4.9); SODIUM 143 mEQ/L (135-145); TOTAL PROTEIN 5.9 g/dL (6.6-8.7)
[2016-06-20 07:23] LABS: BILIRUBIN,DIRECT 0.8 mg/dL (0.1-0.3)
[2016-06-20 07:43] LABS: ABG ALLEN TEST POSITIVE; ABG PCO2 51.9 mmHg (35.0-45.0)
[2016-06-20] MEDS: Pantoprazole Inj IVP SCH (08:40)
[2016-06-20] MEDS: Miralax 17gm pkt ORAL SCH (08:40)
[2016-06-20 09:16] LABS: BAND NEUTROPHILS % (MANUAL) 3 % (0-8); BASOPHILS % (MANUAL) 0 % (0-2); EOSINOPHILS % (MANUAL) 0 % (0-3); LYMPHOCYTES % (MANUAL) 12 % (20-45); NEUTROPHILS % (MANUAL) 77 % (45-75); PLATELET ESTIMATE DECREASED; PLATELET MORPHOLOGY NORMAL; TOTAL CELLS COUNTED 100
--- NOTE | 2016-06-20 11:13 | Pulmonolgy Critical Care Note ---
Critical Care - Asmt/Plan Problems: (1) Acute respiratory failure with hypoxia (2) Cardiomyopathy (3) Chronic kidney disease (4) CHF exacerbation (5) Cellulitis Respiratory: monitor respiratory rate, adjust FIO2, CXR, weaning trial, other - awaiting thoracentesis Cardiac: continue pressors, continue to monitor HR/BP Renal: F/U I&O, keep IV fluid Infectious Disease: check cultures Gastrointestinal: continue feedings/current rate, hold feedings Endocrine: monitor blood sugar, check TSH, continue sliding scale insulin Hematologic: monitor H/H, transfuse if hgb<8.5 Neurologic: PRN Ativan, PRN Morphine Prophylaxis: Heparin Disposition: keep in ICU 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, 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 with: nurses, 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, 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 - Objective Last 24 Hour Vital Signs Date Time Temp Pulse Resp B/P Pulse Ox O2 Delivery O2 Flow Rate FiO2 06/20/16 09:10 57 30 94 Facial 40 06/20/16 07:10 64 36 94 Facial 40 06/20/16 07:10 Bi-pap 06/20/16 07:10 94 Bi-pap 40 06/20/16 06:57 47 26 96/49 98 Bi-pap 50 06/20/16 06:30 62 26 86/49 98 Bi-pap 50 06/20/16 06:00 62 26 86/50 98 Bi-pap 50 06/20/16 05:30 62 26 96/62 98 Bi-pap 50 06/20/16 05:00 62 26 108/65 98 Bi-pap 50 06/20/16 04:42 62 32 99 Facial 40 06/20/16 04:30 97.8 62 26 102/63 98 Bi-pap 50 06/20/16 04:00 50 06/20/16 04:00 62 26 103/85 98 Bi-pap 50 06/20/16 04:00 62 06/20/16 03:30 62 26 112/70 98 Bi-pap 50 06/20/16 03:30 63 32 98 Facial 40 06/20/16 03:00 66 26 122/70 98 Bi-pap 50 06/20/16 02:30 60 26 100/56 98 Bi-pap 50 06/20/16 02:00 53 26 86/54 98 Bi-pap 50 06/20/16 01:30 49 26 79/56 98 Simple Mask 50 06/20/16 01:25 57 28 93 Facial 50 06/20/16 01:00 55 26 82/60 98 Simple Mask 50 06/20/16 00:30 51 26 88/56 98 Simple Mask 50 06/20/16 00:00 58 26 84/60 98 Simple Mask 50 06/20/16 00:00 50 06/20/16 00:00 53 06/19/16 23:30 50 26 88/41 98 Simple Mask 50 06/19/16 23:00 67 26 94/60 98 Simple Mask 50 06/19/16 22:30 64 28 94/66 97 Simple Mask 50 06/19/16 22:00 64 26 97/55 98 Simple Mask 50 06/19/16 22:00 68 06/19/16 22:00 55 18 96 Facial 30 06/19/16 21:41 98/59 06/19/16 21:30 65 26 106/60 98 Simple Mask 50 06/19/16 21:30 67 28 106/60 97 Simple Mask 50 06/19/16 21:00 60 28 98/59 97 Simple Mask 50 06/19/16 20:30 63 28 94/58 97 Simple Mask 50 06/19/16 20:11 97.0 67 26 104/74 96 Simple Mask 50 06/19/16 20:00 50 06/19/16 19:30 100 Venturi Mask 12.0 50 06/19/16 19:30 Venturi Mask 12.0 50 06/19/16 19:30 64 28 94/66 97 Simple Mask 50 06/19/16 19:00 64 28 101/57 97 Simple Mask 50 06/19/16 18:00 67 28 104/60 96 Simple Mask 50 06/19/16 17:00 97.8 67 26 108/60 96 Simple Mask 50 06/19/16 16:00 15.0 50 06/19/16 16:00 68 06/19/16 16:00 97.8 68 24 97/53 97 Simple Mask 50 06/19/16 15:08 65 24 100/54 96 Simple Mask 50 06/19/16 14:00 97.6 66 26 99/55 96 Simple Mask 50 06/19/16 13:00 65 24 103/57 95 Simple Mask 50 06/19/16 12:00 15.0 50 06/19/16 12:00 66 06/19/16 12:00 66 22 106/49 50 Simple Mask 50 Status: awake HEENT: atraumatic Neck: full ROM Lungs: chest wall tender Heart: HR/BP unstable Abdomen: soft, non-tender, feeding tube Accucheck: 134 Critical Care - Subjective ROS Limited/Unobtainable: Yes ICU Day: 3 EKG Rhythm: Sinus Rhythm FI02: 40 Sputum Amount: None Drips: dobutamine and lasix drip I&O: Intake and Output 06/19/16 06/20/16 19:00 07:00 Intake Total 30 ml 616.518 ml Output Total 520 ml 925 ml Balance -490 ml -308.482 ml Intake Oral 30 ml IV Total 616.518 ml Output Urine Total 520 ml 925 ml CXR: bilateral effusion, CHF Labs: Laboratory Tests Test 06/19/16 19:00 06/20/16 05:00 06/20/16 07:35 Random Vancomycin Level 17.4 ug/mL White Blood Count 6.3 K/UL (4.8-10.8) Red Blood Count 2.80 M/UL (4.70-6.10) L Hemoglobin 11.3 G/DL (14.2-18.0) L Hematocrit 27.7 % (42.0-52.0) L Mean Corpuscular Volume 99 FL (80-99) Mean Corpuscular Hemoglobin 40.4 PG (27.0-31.0) H Mean Corpuscular Hemoglobin Concent 40.9 G/DL (32.0-36.0) H Red Cell Distribution Width 19.1 % (11.6-14.8) H Platelet Count 15 K/UL (150-450) #L Mean Platelet Volume 16.3 FL (6.5-10.1) H Neutrophils (%) (Auto) % (45.0-75.0) Lymphocytes (%) (Auto) % (20.0-45.0) Monocytes (%) (Auto) % (1.0-10.0) Eosinophils (%) (Auto) % (0.0-3.0) Basophils (%) (Auto) % (0.0-2.0) Differential Total Cells Counted 100 Neutrophils % (Manual) 77 % (45-75) H Lymphocytes % (Manual) 12 % (20-45) L Monocytes % (Manual) 8 % (1-10) Eosinophils % (Manual) 0 % (0-3) Basophils % (Manual) 0 % (0-2) Band Neutrophils 3 % (0-8) Platelet Estimate Decreased L Platelet Morphology Normal Red Blood Cell Morphology Normal Prothrombin Time 14.2 SEC (9.30-11.50) H Prothromb Time International Ratio 1.4 (0.9-1.1) H Activated Partial Thromboplast Time 36 SEC (23-33) H Fibrin Degradation Products, Quant Pending Sodium Level 143 mEQ/L (135-145) Potassium Level 3.8 mEQ/L (3.4-4.9) Chloride Level 100 mEQ/L (98-107) Carbon Dioxide Level 30 mEQ/L (20-30) Anion Gap 13 (5-15) Blood Urea Nitrogen 57 mg/dL (7-23) H Creatinine 1.7 mg/dL (0.7-1.2) H Estimat Glomerular Filtration Rate mL/min (>60) Glucose Level 148 mg/dL (74-106) H Calcium Level 9.0 mg/dL (8.6-10.2) Phosphorus Level 3.5 mg/dL (2.5-4.8) Magnesium Level 2.1 mg/dL (1.7-2.5) Total Bilirubin 1.8 mg/dL (0.0-1.2) H Direct Bilirubin 0.8 mg/dL (0.1-0.3) H Aspartate Amino Transf (AST/SGOT) 39 U/L (5-40) Alanine Aminotransferase (ALT/SGPT) 13 U/L (3-41) Alkaline Phosphatase 191 U/L (40-129) H Total Protein 5.9 g/dL (6.6-8.7) L Albumin 2.2 g/dL (3.5-5.2) L Globulin 3.7 g/dL Albumin/Globulin Ratio 0.5 (1.0-2.7) L Arterial Blood pH 7.442 (7.350-7.450) Arterial Blood Partial Pressure CO2 51.9 mmHg (35.0-45.0) H Arterial Blood Partial Pressure O2 68.9 mmHg (75.0-100.0) L Arterial Blood HCO3 34.6 mmol/L (22.0-26.0) H Arterial Blood Oxygen Saturation 93.0 % (92.0-98.0) Arterial Blood Base Excess 9.0 Hector Test Positive IJEOMA ALMARAZ Jun 20, 2016 11:13
--- NOTE | 2016-06-20 13:51 | Infectious Diseases Prog Note ---
Assessment/Plan Assessment/Plan ASSESSMENT: 75 y/o male with: // BLE cellulitis / chronic right heel ulcer, probable osteomyelitis - elevated CRP // Possible HCAP - CXR 06/19: Persistent although minimally improved bilateral interstitial edema. Persistent bilateral pleural effusions // Shock / pressors - septic vs cardiogenic // Acute leukocytosis - resolved, afebrile // Elevated troponin / NSTEMI - h/o ICMO, EF 20-25%, mod MR, TR, mild pulmonary HTN - [facility] cardiology has recommended LHC prior to any potential anesthesia, high risk surgical candidate // Acute respiratory failure - on/off BiPAP ?CHF exacerbation ( elevated BNP ) ?HCAP. - CXR 06/19: Persistent although minimally improved bilateral interstitial edema. Persistent bilateral pleural effusions // PAD // CKD // DM2 - HbA1c 7.6% // Abnl TFTs // TCP // Noncompliance // MRSA, VRE colonized // No ABX allergies // DNR/I PLAN: - continue IV vancomycin, levaquin, zosyn d# 3. Unlikely cure osteomyelitis with IV ABX given severe PAD, low cardiac output, not currently a surgical candidate. PO suppressive ABX if survives - monitor CBC, temperatures - monitor BMP - monitor CXR - wound care - LHC, re-vascularization if pt agrees - BiPAP prn - pressor support, wean as tolerated Subjective Allergies: Coded Allergies: GABAPENTIN (Verified Allergy, Unknown, 06/17/16) PREGABALIN (Verified Allergy, Unknown, 06/17/16) Subjective remains afebrile on pressors, BiPAP acute leukocytosis resolved Objective Vital Signs Last 24 Hour Vital Signs Date Time Temp Pulse Resp B/P Pulse Ox O2 Delivery O2 Flow Rate FiO2 06/20/16 11:15 53 25 93 Nasal 40 06/20/16 11:00 56 27 100/64 92 Bi-pap 40 06/20/16 10:30 56 25 100/62 92 Bi-pap 40 06/20/16 10:00 52 26 97/61 95 Bi-pap 40 06/20/16 09:30 54 21 106/66 97 Bi-pap 40 06/20/16 09:10 57 30 94 Facial 40 06/20/16 09:00 56 23 105/72 98 Bi-pap 40 06/20/16 08:30 55 20 108/88 97 Bi-pap 40 06/20/16 08:00 97.0 57 25 108/64 95 Bi-pap 40 06/20/16 08:00 40 06/20/16 07:30 57 25 104/58 94 Bi-pap 40 06/20/16 07:10 64 36 94 Facial 40 06/20/16 07:10 Bi-pap 06/20/16 07:10 94 Bi-pap 40 06/20/16 06:57 47 26 96/49 98 Bi-pap 50 06/20/16 06:30 62 26 86/49 98 Bi-pap 50 06/20/16 06:00 62 26 86/50 98 Bi-pap 50 06/20/16 05:30 62 26 96/62 98 Bi-pap 50 06/20/16 05:00 62 26 108/65 98 Bi-pap 50 06/20/16 04:42 62 32 99 Facial 40 06/20/16 04:30 97.8 62 26 102/63 98 Bi-pap 50 06/20/16 04:00 50 06/20/16 04:00 62 26 103/85 98 Bi-pap 50 06/20/16 04:00 62 06/20/16 03:30 62 26 112/70 98 Bi-pap 50 06/20/16 03:30 63 32 98 Facial 40 06/20/16 03:00 66 26 122/70 98 Bi-pap 50 06/20/16 02:30 60 26 100/56 98 Bi-pap 50 06/20/16 02:00 53 26 86/54 98 Bi-pap 50 06/20/16 01:30 49 26 79/56 98 Simple Mask 50 06/20/16 01:25 57 28 93 Facial 50 06/20/16 01:00 55 26 82/60 98 Simple Mask 50 06/20/16 00:30 51 26 88/56 98 Simple Mask 50 06/20/16 00:00 58 26 84/60 98 Simple Mask 50 06/20/16 00:00 50 06/20/16 00:00 53 06/19/16 23:30 50 26 88/41 98 Simple Mask 50 06/19/16 23:00 67 26 94/60 98 Simple Mask 50 06/19/16 22:30 64 28 94/66 97 Simple Mask 50 06/19/16 22:00 64 26 97/55 98 Simple Mask 50 06/19/16 22:00 68 06/19/16 22:00 55 18 96 Facial 30 06/19/16 21:41 98/59 06/19/16 21:30 65 26 106/60 98 Simple Mask 50 06/19/16 21:30 67 28 106/60 97 Simple Mask 50 06/19/16 21:00 60 28 98/59 97 Simple Mask 50 06/19/16 20:30 63 28 94/58 97 Simple Mask 50 06/19/16 20:11 97.0 67 26 104/74 96 Simple Mask 50 06/19/16 20:00 50 06/19/16 19:30 100 Venturi Mask 12.0 50 06/19/16 19:30 Venturi Mask 12.0 50 06/19/16 19:30 64 28 94/66 97 Simple Mask 50 06/19/16 19:00 64 28 101/57 97 Simple Mask 50 06/19/16 18:00 67 28 104/60 96 Simple Mask 50 06/19/16 17:00 97.8 67 26 108/60 96 Simple Mask 50 06/19/16 16:00 15.0 50 06/19/16 16:00 68 06/19/16 16:00 97.8 68 24 97/53 97 Simple Mask 50 06/19/16 15:08 65 24 100/54 96 Simple Mask 50 06/19/16 14:00 97.6 66 26 99/55 96 Simple Mask 50 Height (Feet): 6 Height (Inches): 0.00 Weight (Pounds): 136 General Appearance: other - BIPAP Respiratory/Chest: decreased breath sounds Cardiovascular: normal rate, regular rhythm Abdomen: normal bowel sounds, soft, non tender, non distended Laboratory Tests Test 06/19/16 19:00 06/20/16 05:00 06/20/16 07:35 Random Vancomycin Level 17.4 ug/mL White Blood Count 6.3 K/UL (4.8-10.8) Red Blood Count 2.80 M/UL (4.70-6.10) L Hemoglobin 11.3 G/DL (14.2-18.0) L Hematocrit 27.7 % (42.0-52.0) L Mean Corpuscular Volume 99 FL (80-99) Mean Corpuscular Hemoglobin 40.4 PG (27.0-31.0) H Mean Corpuscular Hemoglobin Concent 40.9 G/DL (32.0-36.0) H Red Cell Distribution Width 19.1 % (11.6-14.8) H Platelet Count 15 K/UL (150-450) #L Mean Platelet Volume 16.3 FL (6.5-10.1) H Neutrophils (%) (Auto) % (45.0-75.0) Lymphocytes (%) (Auto) % (20.0-45.0) Monocytes (%) (Auto) % (1.0-10.0) Eosinophils (%) (Auto) % (0.0-3.0) Basophils (%) (Auto) % (0.0-2.0) Differential Total Cells Counted 100 Neutrophils % (Manual) 77 % (45-75) H Lymphocytes % (Manual) 12 % (20-45) L Monocytes % (Manual) 8 % (1-10) Eosinophils % (Manual) 0 % (0-3) Basophils % (Manual) 0 % (0-2) Band Neutrophils 3 % (0-8) Platelet Estimate Decreased L Platelet Morphology Normal Red Blood Cell Morphology Normal Prothrombin Time 14.2 SEC (9.30-11.50) H Prothromb Time International Ratio 1.4 (0.9-1.1) H Activated Partial Thromboplast Time 36 SEC (23-33) H Fibrin Degradation Products, Quant Pending Sodium Level 143 mEQ/L (135-145) Potassium Level 3.8 mEQ/L (3.4-4.9) Chloride Level 100 mEQ/L (98-107) Carbon Dioxide Level 30 mEQ/L (20-30) Anion Gap 13 (5-15) Blood Urea Nitrogen 57 mg/dL (7-23) H Creatinine 1.7 mg/dL (0.7-1.2) H Estimat Glomerular Filtration Rate mL/min (>60) Glucose Level 148 mg/dL (74-106) H Calcium Level 9.0 mg/dL (8.6-10.2) Phosphorus Level 3.5 mg/dL (2.5-4.8) Magnesium Level 2.1 mg/dL (1.7-2.5) Total Bilirubin 1.8 mg/dL (0.0-1.2) H Direct Bilirubin 0.8 mg/dL (0.1-0.3) H Aspartate Amino Transf (AST/SGOT) 39 U/L (5-40) Alanine Aminotransferase (ALT/SGPT) 13 U/L (3-41) Alkaline Phosphatase 191 U/L (40-129) H Total Protein 5.9 g/dL (6.6-8.7) L Albumin 2.2 g/dL (3.5-5.2) L Globulin 3.7 g/dL Albumin/Globulin Ratio 0.5 (1.0-2.7) L Arterial Blood pH 7.442 (7.350-7.450) Arterial Blood Partial Pressure CO2 51.9 mmHg (35.0-45.0) H Arterial Blood Partial Pressure O2 68.9 mmHg (75.0-100.0) L Arterial Blood HCO3 34.6 mmol/L (22.0-26.0) H Arterial Blood Oxygen Saturation 93.0 % (92.0-98.0) Arterial Blood Base Excess 9.0 Hector Test Positive Current Medications Medications (Trade) Dose Ordered Sig/Jazmyne Route PRN Reason Start Time Stop Time Status Last Admin Dose Admin Acetaminophen (Tylenol) 650 mg Q4H PRN ORAL Fever 06/17/16 19:45 07/17/16 19:44 Albuterol/ Ipratropium (DuoNeb 0.5-3(2.5)mg/3ml) 3 ml Q4H PRN HHN Shortness of Breath 06/17/16 20:00 06/22/16 19:59 Collagenase (Santyl) 1 applic DAILY TOPIC 06/18/16 09:00 07/18/16 08:59 06/20/16 08:40 Dextrose (Dextrose 50%) STAT PRN IV Hypoglycemia 06/18/16 06:00 07/18/16 05:59 Dobutamine HCl 250 ml @ 9.253 mls/ hr Q24H IV 06/18/16 21:30 07/18/16 21:29 06/19/16 21:41 Furosemide/ Dextrose (Lasix/D5W) 100 ml @ 10 mls/hr Q10H IV 06/19/16 12:00 07/19/16 11:59 06/20/16 07:10 Insulin Aspart (NovoLOG) BEFORE MEALS AND HS SUBQ 06/17/16 21:00 07/17/16 20:59 06/20/16 06:09 Levofloxacin 150 ml @ 100 mls/hr Q48H IVPB 06/18/16 20:00 06/25/16 19:59 06/18/16 19:43 Levothyroxine Sodium (Synthroid) 100 mcg DAILY@0630 ORAL 06/18/16 06:30 07/18/16 06:29 06/20/16 06:12 Lorazepam (Ativan 2mg/ml 1ml) 1 mg Q2H PRN IV For Anxiety 06/18/16 12:00 06/25/16 11:59 06/19/16 23:24 Ondansetron HCl (Zofran) 4 mg Q6H PRN IVP Nausea & Vomiting 06/17/16 20:00 07/17/16 19:59 Pantoprazole (Protonix) 40 mg DAILY IVP 06/18/16 09:00 07/18/16 08:59 06/20/16 08:40 Piperacillin Sod/ Tazobactam Sod 3.375 gm/Dextrose 110 ml @ 27.5 mls/hr Q8H IVPB 06/18/16 16:30 06/25/16 16:29 06/20/16 08:27 Polyethylene Glycol (Miralax) 17 gm DAILY ORAL 06/18/16 09:00 07/18/16 08:59 06/19/16 09:37 Polyethylene Glycol (Miralax) 17 gm DAILYPRN PRN ORAL Constipation 06/17/16 20:00 07/17/16 19:59 Tamsulosin HCl (Flomax) 0.4 mg BEDTIME ORAL 06/17/16 21:00 07/17/16 20:59 Temazepam (Restoril) 15 mg HSPRN PRN ORAL Insomnia 06/17/16 20:00 06/24/16 19:59 Vancomycin HCl 750 mg/Dextrose 275 ml @ 183.708 mls/hr Q24H IVPB 06/18/16 20:00 06/23/16 19:59 06/19/16 20:06 Vancomycin HCl 1 ea 1 ea DAILY PRN MISC Per rx protocol 06/18/16 15:30 07/18/16 15:29 LIO LEMUS Jun 20, 2016 13:50
[2016-06-20] MEDS ORDERED: Prochlorperazine 10mg tab ORAL PRN (14:30)
[2016-06-20] MEDS ORDERED: Morphine Sulfate 10mg/ml Inj IVP ONE (14:30)
[2016-06-20] MEDS ORDERED: Artificial Tears 1.4% Op Soln BOTH EYES PRN (14:30)
[2016-06-20] MEDS ORDERED: PCA Morphine 1mg/ml 30 ML IV PRN (14:30)
[2016-06-20] MEDS ORDERED: Haloperidol 5mg/ml Inj IM PRN (14:30)
[2016-06-20] MEDS ORDERED: Glycopyrrolate 0.2mg/ml 1ml Vial IV PRN (14:30)
[2016-06-20] MEDS ORDERED: Rate Change Narcotic Drip MISC PRN (14:30)
[2016-06-20] MEDS ORDERED: Morphine Sulfate 4mg/ml Inj SUBQ PRN (14:45)
--- NOTE | 2016-06-20 14:49 | General Progress Note ---
Assessment/Plan Status: unchanged Status Narrative Cr up to 1.7 Assessment/Plan status: Acute on Chronic Kidney disease Acute respiratory failure with hypoxia BradyArrythmia CHF exacerbation Cellulitis HypoThyroidism TSH 35 Plan: pulmonary toilet diuretics echo titrate fio2 Vanco for cellulitis of legs wound care monitor renal parameters- Avoid nephrotoxics Subjective ROS Limited/Unobtainable: No Constitutional: Reports: malaise, other - on BIPAPA, weakness Allergies: Coded Allergies: GABAPENTIN (Verified Allergy, Unknown, 06/17/16) PREGABALIN (Verified Allergy, Unknown, 06/17/16) Objective Last 24 Hour Vital Signs Date Time Temp Pulse Resp B/P Pulse Ox O2 Delivery O2 Flow Rate FiO2 06/20/16 13:15 59 25 97 Nasal 50 06/20/16 11:15 53 25 93 Nasal 40 06/20/16 11:00 56 27 100/64 92 Bi-pap 40 06/20/16 10:30 56 25 100/62 92 Bi-pap 40 06/20/16 10:00 52 26 97/61 95 Bi-pap 40 06/20/16 09:30 54 21 106/66 97 Bi-pap 40 06/20/16 09:10 57 30 94 Facial 40 06/20/16 09:00 56 23 105/72 98 Bi-pap 40 06/20/16 08:30 55 20 108/88 97 Bi-pap 40 06/20/16 08:00 97.0 57 25 108/64 95 Bi-pap 40 06/20/16 08:00 40 06/20/16 07:30 57 25 104/58 94 Bi-pap 40 06/20/16 07:10 64 36 94 Facial 40 06/20/16 07:10 Bi-pap 06/20/16 07:10 94 Bi-pap 40 06/20/16 06:57 47 26 96/49 98 Bi-pap 50 06/20/16 06:30 62 26 86/49 98 Bi-pap 50 06/20/16 06:00 62 26 86/50 98 Bi-pap 50 06/20/16 05:30 62 26 96/62 98 Bi-pap 50 06/20/16 05:00 62 26 108/65 98 Bi-pap 50 06/20/16 04:42 62 32 99 Facial 40 06/20/16 04:30 97.8 62 26 102/63 98 Bi-pap 50 06/20/16 04:00 50 06/20/16 04:00 62 26 103/85 98 Bi-pap 50 06/20/16 04:00 62 06/20/16 03:30 62 26 112/70 98 Bi-pap 50 06/20/16 03:30 63 32 98 Facial 40 06/20/16 03:00 66 26 122/70 98 Bi-pap 50 06/20/16 02:30 60 26 100/56 98 Bi-pap 50 06/20/16 02:00 53 26 86/54 98 Bi-pap 50 06/20/16 01:30 49 26 79/56 98 Simple Mask 50 06/20/16 01:25 57 28 93 Facial 50 06/20/16 01:00 55 26 82/60 98 Simple Mask 50 06/20/16 00:30 51 26 88/56 98 Simple Mask 50 06/20/16 00:00 58 26 84/60 98 Simple Mask 50 06/20/16 00:00 50 06/20/16 00:00 53 06/19/16 23:30 50 26 88/41 98 Simple Mask 50 06/19/16 23:00 67 26 94/60 98 Simple Mask 50 06/19/16 22:30 64 28 94/66 97 Simple Mask 50 06/19/16 22:00 64 26 97/55 98 Simple Mask 50 06/19/16 22:00 68 06/19/16 22:00 55 18 96 Facial 30 06/19/16 21:41 98/59 06/19/16 21:30 65 26 106/60 98 Simple Mask 50 06/19/16 21:30 67 28 106/60 97 Simple Mask 50 06/19/16 21:00 60 28 98/59 97 Simple Mask 50 06/19/16 20:30 63 28 94/58 97 Simple Mask 50 06/19/16 20:11 97.0 67 26 104/74 96 Simple Mask 50 06/19/16 20:00 50 06/19/16 19:30 100 Venturi Mask 12.0 50 06/19/16 19:30 Venturi Mask 12.0 50 06/19/16 19:30 64 28 94/66 97 Simple Mask 50 06/19/16 19:00 64 28 101/57 97 Simple Mask 50 06/19/16 18:00 67 28 104/60 96 Simple Mask 50 06/19/16 17:00 97.8 67 26 108/60 96 Simple Mask 50 06/19/16 16:00 15.0 50 06/19/16 16:00 68 06/19/16 16:00 97.8 68 24 97/53 97 Simple Mask 50 06/19/16 15:08 65 24 100/54 96 Simple Mask 50 Intake and Output 06/19/16 06/20/16 19:00 07:00 Intake Total 30 ml 616.518 ml Output Total 520 ml 925 ml Balance -490 ml -308.482 ml Intake Oral 30 ml IV Total 616.518 ml Output Urine Total 520 ml 925 ml Laboratory Tests 06/19/16 19:00: Random Vancomycin Level 17.4 06/20/16 05:00: White Blood Count 6.3, Red Blood Count 2.80L, Hemoglobin 11.3L, Hematocrit 27.7L , Mean Corpuscular Volume 99, Mean Corpuscular Hemoglobin 40.4H, Mean Corpuscular Hemoglobin Concent 40.9H, Red Cell Distribution Width 19.1H, Platelet Count 15#L, Mean Platelet Volume 16.3H, Neutrophils (%) (Auto) , Lymphocytes (%) (Auto) , Monocytes (%) (Auto) , Eosinophils (%) (Auto) , Basophils (%) (Auto) , Differential Total Cells Counted 100, Neutrophils % ( Manual) 77H, Lymphocytes % (Manual) 12L, Monocytes % (Manual) 8, Eosinophils % ( Manual) 0, Basophils % (Manual) 0, Band Neutrophils 3, Platelet Estimate DecreasedL, Platelet Morphology Normal, Red Blood Cell Morphology Normal, Prothrombin Time 14.2H, Prothromb Time International Ratio 1.4H, Activated Partial Thromboplast Time 36H, Fibrin Degradation Products, Quant [Pending], Sodium Level 143, Potassium Level 3.8, Chloride Level 100, Carbon Dioxide Level 30, Anion Gap 13, Blood Urea Nitrogen 57H, Creatinine 1.7H, Estimat Glomerular Filtration Rate , Glucose Level 148H, Calcium Level 9.0, Phosphorus Level 3.5, Magnesium Level 2.1, Total Bilirubin 1.8H, Direct Bilirubin 0.8H, Aspartate Amino Transf (AST/SGOT) 39, Alanine Aminotransferase (ALT/SGPT) 13, Alkaline Phosphatase 191H, Total Protein 5.9L, Albumin 2.2L, Globulin 3.7, Albumin/ Globulin Ratio 0.5L 06/20/16 07:35: Arterial Blood pH 7.442, Arterial Blood Partial Pressure CO2 51.9H, Arterial Blood Partial Pressure O2 68.9L, Arterial Blood HCO3 34.6H, Arterial Blood Oxygen Saturation 93.0, Arterial Blood Base Excess 9.0, Hector Test Positive Height (Feet): 6 Height (Inches): 0.00 Weight (Pounds): 136 General Appearance: mild distress Neck: stiff neck Cardiovascular: bradycardia Respiratory/Chest: decreased breath sounds Abdomen: distended Objective other PE not changed OZIEL CHAPMAN Jun 20, 2016 14:49
--- NOTE | 2016-06-20 14:54 | Internal Med Progress Note ---
Subjective Physician Name Philippe Buckley Attending Physician Philippe Buckley MD Current Medications Medications (Trade) Dose Ordered Sig/Jazmyne Route PRN Reason Start Time Stop Time Status Last Admin Dose Admin Acetaminophen (Tylenol) 650 mg Q4H PRN ORAL Fever 06/17/16 19:45 07/17/16 19:44 Artificial Tears (Akwa-Tears) 1 drop QIDPRN PRN BOTH EYES Dry Eyes 06/20/16 14:30 07/20/16 14:29 Dextrose (Dextrose 50%) STAT PRN IV Hypoglycemia 06/18/16 06:00 07/18/16 05:59 Glycopyrrolate (Robinul) 0.1 mg Q6H PRN IV excessive secretions 06/20/16 14:30 07/20/16 14:29 Haloperidol Lactate (Haldol) 1 mg Q30M PRN IM Agitation 06/20/16 14:30 07/20/16 14:29 Lorazepam (Ativan 2mg/ml 1ml) 1 mg Q2H PRN IV For Anxiety 06/18/16 12:00 06/25/16 11:59 06/19/16 23:24 Miscellaneous Medication (Narcotic Drip Rate Change) 1 ea DAILY PRN MISC To Patient Comfort 06/20/16 14:30 07/20/16 14:29 UNV Miscellaneous Medication (Narcotic Shift Volume) 1 ea Q8HR@07,15,23 MISC 06/20/16 15:00 07/20/16 14:59 UNV Morphine Sulfate (TRADE SHOW COORDINATOR Morphine) 30 ml @ 0 mls/hr TRADE SHOW COORDINATOR Protocol PRN IV For Pain 06/20/16 14:30 06/22/16 14:29 UNV Morphine Sulfate 10 mg 10 mg ONCE ONCE IVP 06/20/16 14:30 06/20/16 14:31 Ondansetron HCl (Zofran) 4 mg Q6H PRN IVP Nausea & Vomiting 06/17/16 20:00 07/17/16 19:59 Prochlorperazine (Compazine) 10 mg Q6H PRN ORAL Nausea & Vomiting 06/20/16 14:30 07/20/16 14:29 UNV Prochlorperazine (Compazine) 25 mg Q12H PRN RECTAL Nausea & Vomiting 06/20/16 14:30 07/20/16 14:29 UNV Allergies: Coded Allergies: GABAPENTIN (Verified Allergy, Unknown, 06/17/16) PREGABALIN (Verified Allergy, Unknown, 06/17/16) Subjective in ICU, unresponsive, not verbal, hypotensive, on bipap, + Hematuria Objective Last Vital Signs Date Time Temp Pulse Resp B/P Pulse Ox O2 Delivery O2 Flow Rate FiO2 06/20/16 13:15 59 25 97 Nasal 50 06/20/16 11:00 100/64 06/20/16 08:00 97.0 06/19/16 19:30 12.0 Laboratory Tests Test 06/19/16 19:00 06/20/16 05:00 06/20/16 07:35 Random Vancomycin Level 17.4 ug/mL White Blood Count 6.3 K/UL (4.8-10.8) Red Blood Count 2.80 M/UL (4.70-6.10) L Hemoglobin 11.3 G/DL (14.2-18.0) L Hematocrit 27.7 % (42.0-52.0) L Mean Corpuscular Volume 99 FL (80-99) Mean Corpuscular Hemoglobin 40.4 PG (27.0-31.0) H Mean Corpuscular Hemoglobin Concent 40.9 G/DL (32.0-36.0) H Red Cell Distribution Width 19.1 % (11.6-14.8) H Platelet Count 15 K/UL (150-450) #L Mean Platelet Volume 16.3 FL (6.5-10.1) H Neutrophils (%) (Auto) % (45.0-75.0) Lymphocytes (%) (Auto) % (20.0-45.0) Monocytes (%) (Auto) % (1.0-10.0) Eosinophils (%) (Auto) % (0.0-3.0) Basophils (%) (Auto) % (0.0-2.0) Differential Total Cells Counted 100 Neutrophils % (Manual) 77 % (45-75) H Lymphocytes % (Manual) 12 % (20-45) L Monocytes % (Manual) 8 % (1-10) Eosinophils % (Manual) 0 % (0-3) Basophils % (Manual) 0 % (0-2) Band Neutrophils 3 % (0-8) Platelet Estimate Decreased L Platelet Morphology Normal Red Blood Cell Morphology Normal Prothrombin Time 14.2 SEC (9.30-11.50) H Prothromb Time International Ratio 1.4 (0.9-1.1) H Activated Partial Thromboplast Time 36 SEC (23-33) H Fibrin Degradation Products, Quant Pending Sodium Level 143 mEQ/L (135-145) Potassium Level 3.8 mEQ/L (3.4-4.9) Chloride Level 100 mEQ/L (98-107) Carbon Dioxide Level 30 mEQ/L (20-30) Anion Gap 13 (5-15) Blood Urea Nitrogen 57 mg/dL (7-23) H Creatinine 1.7 mg/dL (0.7-1.2) H Estimat Glomerular Filtration Rate mL/min (>60) Glucose Level 148 mg/dL (74-106) H Calcium Level 9.0 mg/dL (8.6-10.2) Phosphorus Level 3.5 mg/dL (2.5-4.8) Magnesium Level 2.1 mg/dL (1.7-2.5) Total Bilirubin 1.8 mg/dL (0.0-1.2) H Direct Bilirubin 0.8 mg/dL (0.1-0.3) H Aspartate Amino Transf (AST/SGOT) 39 U/L (5-40) Alanine Aminotransferase (ALT/SGPT) 13 U/L (3-41) Alkaline Phosphatase 191 U/L (40-129) H Total Protein 5.9 g/dL (6.6-8.7) L Albumin 2.2 g/dL (3.5-5.2) L Globulin 3.7 g/dL Albumin/Globulin Ratio 0.5 (1.0-2.7) L Arterial Blood pH 7.442 (7.350-7.450) Arterial Blood Partial Pressure CO2 51.9 mmHg (35.0-45.0) H Arterial Blood Partial Pressure O2 68.9 mmHg (75.0-100.0) L Arterial Blood HCO3 34.6 mmol/L (22.0-26.0) H Arterial Blood Oxygen Saturation 93.0 % (92.0-98.0) Arterial Blood Base Excess 9.0 Hector Test Positive Intake and Output 06/19/16 06/20/16 19:00 07:00 Intake Total 30 ml 616.518 ml Output Total 520 ml 925 ml Balance -490 ml -308.482 ml Intake Oral 30 ml IV Total 616.518 ml Output Urine Total 520 ml 925 ml Objective GENERAL: The patient is a thin appearing white male, unresponsive, not verbal. HEENT: PERRLA, anicteric.BiPAP Mask NECK: Supple without lymphadenopathy. CHEST: decrease air on bases, no wheezes, poor inspiratory efforts. ABDOMEN: Soft, nontender, and nondistended. EXTREMITIES: Negative for clubbing, cyanosis, or edema. right heel ulcer / dressing. RUE Piccline, UE's ecchymosis. NEUROLOGIC: limited due to patient status. : Rosado cath with bloody urine / irrigation Assessment/Plan Assessment/Plan 1. Congestive heart failure. 2. Cardiomyopathy. 3. Mitral regurgitation. 4. Renal insufficiency. 5. Right bundle-branch conduction defect. 6. Pulmonary hypertension. 7. History of cardiorenal syndrome. 8. Hyperlipidemia. 9. Bradycardia 10. hypotension 11. Acute hypoxemic respiratory failure 12. RBBB 13. NSTEMI 14. thormbocytopenia 15. Hematuria Plan: wean off dobutamine Drip and Lasix Drip Abx: Vanco / Zosyn / Levaquin poor prognosis wound care Code status: DNR. Had long discussion with sister in Law, Nellie, over the phone [phone] regarding poor prognosis and his condition, agreed with comfort, will start morphine as needed Discuss with Philippe Pena MD Jun 20, 2016 14:54
[2016-06-20] MEDS ORDERED: Narcotic Shift Volume MISC SCH (15:00)
[2016-06-20] MEDS ORDERED: NS Irrig 4000ml IRRIG ONE ×2 (16:09)
[2016-06-20] MEDS ORDERED: Sterile Water Irrig 1000ml IRRIG ONE (16:09)
--- NOTE | 2016-06-21 15:47 | Cardiology Report ---
APPROVED REPORT EXAM: Two-dimensional and M-mode echocardiogram with Doppler and color Doppler. INDICATION Left ventricular function M-Mode DIMENSIONS IVSd0.8 (0.7-1.1cm)Left Atrium (MM)3.9 (1.6-4.0cm) LVDd5.5 (3.5-5.6cm)Aortic Root2.8 (2.0-3.7cm) PWd0.7 (0.7-1.1cm)Aortic Cusp Exc.2.0 (1.5-2.0cm) LVDs4.7 (2.5-4.0cm) PWs1.1 cm Normal left ventricular chamber size. Global left ventricular hypokinesis. Mid septal and mid anterior wall dyskinesis. Left ventricular ejection fraction estimated to be 20-25%. No evidence of left ventricular hypertrophy. Large posterior pleural and Small posterior pericardial effusion. Mild bi-atrial and right ventricular enlargement by 2D. Focal aortic valve sclerosis with adequate cusp excursion Thickened mitral valve leaflets with normal excursion. Mild mitral annulus and aortic root calcification. Pulmonic valve is well visualized. Normal tricuspid valve structure. IVC dilated at 2.5cm with minimal physiologic collapse. RA pressure of 15mmHg. A color flow and spectral Doppler study was performed and revealed: No aortic regurgitation. Moderate mitral regurgitation (2 jets). Normal left ventricular diastolic dysfunction. Moderate tricuspid regurgitation. Tricuspid systolic velocities suggests peak right ventricular systolic pressure of 41 mmHg Consistent with mild pulmonary hypertension.
--- NOTE | 2016-06-23 07:55 | Discharge Summary ---
Discharge Summary Hospital Course Date of Admission Jun 17, 2016 at 04:18 Date of Discharge Jun 20, 2016 at 16:10 Admitting Diagnosis CHF exacerbation, SOB HPI Keegan Arora is a 75 year old male who was admitted on Jun 17, 2016 at 04:18 for Congestive Heart Failure Hospital Course summary dictated # [id number] Discharge Condition Upon Discharge: critical Discharge Disposition Patient DNR/DNI status Pronounced at 1847 06/20/16 Discharge Diagnoses: Discharge Instructions Discharge Instructions Special Instructions I have been assigned to complete a D/C Summary on this account. I was not involved in the patient management Aleksander Gomez)Amparo NP Jun 23, 2016 07:55
--- NOTE | 2016-06-24 02:09 | Discharge Summary 2 SIG ---
DATE OF ADMISSION: 06/17/2016 DATE OF EXPIRATION: 06/20/2016. REASON FOR ADMISSION: 75-year-old male with history of hypertension and congestive heart failure as well as chronic kidney disease, jail resident, was brought by paramedics with chief complaint of acute onset of shortness of breath for one day. Per emergency personnel, he was placed on supplemental oxygen. He was hypoxic upon arrival to ED. He was placed on face mask and given spray of nitroglycerin in the emergency department. He was recently discharged from the [facility]. He refused a chest x-ray in the emergency department. He denied chest pain, but admitted to chest pressure. No nausea. No vomiting. Chest pressure worse with exertion. Troponin was negative. EKG revealed normal sinus rhythm. No acute changes. Pro BNP was severely elevated. On clinical exam, the patient presented with acute CHF with bilateral leg edema. He was diuresed with the Lasix. Vital signs were stable. The patient was admitted to monitored floor for further management. ADMITTING DIAGNOSES: 1. Acute hypoxemic respiratory failure. 2. Congestive heart failure exacerbation. 3. Bilateral lower extremity cellulitis. 4. Acute on chronic kidney disease. HOSPITAL STAY: The patient was initially admitted on telemetry floor, started on diuretic. Supplemental oxygen and pulmonary toilet were provided. Echocardiogram revealed ejection fraction of 20% to 25%. No left ventricular hypertrophy. Posterior pleural and small posterior pericardial effusion, moderate mitral regurgitation, moderate tricuspid regurgitation, and right ventricular systolic pressure of 41 consistent with mild pulmonary hypertension. Assistant Store Director followed clsoely. The patient was noted to be bradycardic with right bundle-branch block and hypotensive. The patient was started on dopamine drip for blood pressure and heart support and transferred to ICU for further management. The patient was placed on the BiPAP due to worsening respiratory status. Venous duplex of bilateral lower extremities was negative. The patient was followed up with chest x-ray, which revealed persistent minimally improved bilateral interstitial edema and persistent bilateral pleural effusion. Specimen Processor also was involved in the care of this patient. The patient had acute on chronic renal failure. The patient had a history of cardiorenal syndrome in the past. Electrolytes and renal parameters were closely monitored. Renal ultrasound revealed atrophic echogenic left kidney consistent with chronic renal disease, negative for hydronephrosis. nephrotoxic were avoided as possible. Antibiotics started for cellulitis as per ID recommendations. Netezza Architect had seen the patient due to the ischemic right heel ulcer. He concluded that the patient was a poor surgical candidate secondary to cardiac status and recommended wound care, offload the heels, and continue antibiotic as per ID. Consider surgery only if medically will be optimized. Vascular surgeon had seen the patient as well and recommended medical optimization, local wound care, pulmonary optimization, decubitus and DVT precautions. He recommended right leg angio only if overall condition could be improved. The patient with known history of diabetes. Hemoglobin A1c - 7.6. Blood sugar was managed with sliding scale of insulin. The patient had underlying hypothyroidism with elevated TSH. The dose of Synthroid was increased. The patient's condition overall was getting worse. He was on dopamine drip as well as the Lasix drip. Overall prognosis was poor. He was bradycardic. Platelets were trending down. Last platelets were 15,000, off heparin. No changes in renal parameters. The patient was followed up with the daily ABG, which revealed persistent hypercapnia, somewhat improved with the BiPAP. Last troponin was positive at 1.59, likely non-STEMI. The patient was in possible DIC, coagulation profile was noted. Patient ultimately was switched to 100% nonrebreathing mask. The primary doctor discussed poor prognosis with the patient's sister. The patient was DNR/DNI status, and the sister agreed to comfort measure. The patient weaned off dopamine and Lasix drips and started on morphine as needed. Morphine drip was ordered as well, however, before starting morphine drip, the nurse found the patient to be bradycardic with a heart rate of 40. On 06/20/2016 at 1611 hours, the patient was noted to be in asystole . The patient was pronounced at 1847 hours. Family was notified. The cause of cardiopulmonary arrest. FINAL DIAGNOSES: 1. Acute hypoxemic respiratory failure. 2. Possible healthcare-associated pneumonia. 3. Acute on chronic congestive heart failure exacerbation, systolic and diastolic. 4. Cardiomyopathy. 5. Mitral regurgitation. 6. Right bundle-branch block conduction defect. 7. Tricuspid regurgitation. 8. Pulmonary hypertension. 9. Likely NSTEMI 10. Hyperlipidemia. 11. Shock, likely cardiogenic. 12. Possible DIC 13. Bilateral lower extremities cellulitis. 14. Peripheral arterial disease, severe, multilevel. 15. Right heel ischemic ulcer, possible osteomyelitis. 16. Acute on chronic kidney disease. 17. History of cardiorenal syndrome. 18. Hypothyroidism with elevated thyroid stimulating hormone. 19. Thrombocytopenia 20. Diabetes mellitus Philippe Buckley M.D. I have been assigned to dictate discharge summary on this account and I was not involved in the patient's management. Amparo Thompsonfabien N.PErica DR: AMY JOB#: [id number] CC: XIN
--- NOTE | 2016-06-24 12:09 | Consultation ---
DATE OF CONSULTATION: 06/17/2016 REQUESTING PHYSICIAN: Katrin Charles M.D. CONSULTING PHYSICIAN: Imer Schofield D.P.M. REASON FOR CONSULTATION: Multiple ischemic wound. HISTORY OF PRESENT ILLNESS: The patient is a 75-year-old male, who was admitted to [facility] on 06/17/2016 for congestive heart failure. The patient is nonverbal. History was obtained through chart review at [facility] as well as [facility]. PAST MEDICAL HISTORY: Significant for peripheral vascular disease, chronic renal failure, congestive heart failure, hypothyroidism and diabetes mellitus. MEDICATIONS: Per JUL. ALLERGIES: He is allergic to Neurontin and Lyrica. SOCIAL HISTORY: Noncontributory. FAMILY HISTORY: Noncontributory. REVIEW OF SYSTEMS: Unobtainable. PHYSICAL EXAMINATION: VITAL SIGNS: Temperature is 96.5 degrees, pulse is 62, respirations 19, blood pressure is 108/68 and he is saturating 92% on three liters of nasal cannula. EXTREMITIES: Lower extremity physical exam, nonpalpable pedal pulses bilaterally. Feet are cold to touch. There is chronic edema noted bilaterally. No cyanosis is noted. DERMATOLOGICAL: There is a full-thickness right heel ulceration with a fibrotic wound base. No signs of acute infection. No malodor. No purulence inside. No periwound erythema is noted. Multiple superficial ulcerations noted on the anterior aspects of bilateral legs. No signs of acute infection are noted there. MUSCULOSKELETAL: No gross deformities are noted. IMAGING DATA: No lower extremity imaging is noted. LABORATORY DATA: White blood cell count is 9.7, hemoglobin and hematocrit is 12.2 and 32.3, and platelet count is 86,000. BUN is 59 and creatinine is 1.7. Albumin is 2.5. INR is 1.3. Arterial ultrasound performed at [facility] on 02/05/2016 showed severe stenosis of the popliteal artery of the right lower extremity. Left side has mild ischemia. Cardiology is noted this patient to have a ejection fraction of 25% at [facility] and very poor candidate for any surgical procedures. ASSESSMENT: 1. Severe peripheral vascular disease right lower extremity from [facility] on 02/05/2016. 2. Ischemic right heel ulcer. 3. Non-pressure ulcers multiple noted on bilateral lower extremities and superficial. 4. Diabetes mellitus. 5. Diabetic neuropathy. 6. History of noncompliance. PLAN: 1. The patient is a poor surgical candidate secondary to his cardiac status. 2. Medical optimization. 3. Recommend vascular consult. 4. Continue current wound care regimen. 5. Continue offloading. 6. The patient was discussed with the Infectious Disease. Antibiotics per ID. 7. We will follow. Thank you for the courtesy of this consultation. Imer Schofield D.P.M. DR: Roosevelt JOB#: [id number] CC:
--- NOTE | 2016-06-24 12:56 | Cardiology Report ---
APPROVED REPORT EKG Measurement Heart [id number] Sinus bradycardia with 1st degree AV block. HR about 50 BPM. Right bundle branch block Possible Lateral infarct, age undetermined Cannot rule out Inferior infarct, age undetermined Abnormal ECG
--- NOTE | 2016-06-24 14:55 | Cardiology Report ---
APPROVED REPORT EKG Measurement Heart [id number] Sinus rhythm with 1st degree AV block Possible Left atrial enlargement Left axis deviation Right bundle branch block Possible Lateral infarct, age undetermined Possible Inferior infarct, age undetermined Abnormal ECG
--- NOTE | 2016-07-01 14:09 | Diagnostic Imaging Report ---
Indication: DYSPNEA Technique: One view of the chest Comparison: June 19, 2016 Findings: Stable large bilateral pleural effusions and extensive interstitial and alveolar infiltrates versus edema. Stable cardiomegaly. Right arm PICC remains. Findings are unchanged Impression: Are unchanged
--- NOTE | 2016-07-02 09:57 | Diagnostic Imaging Report ---
Indications: Shortness of breath Technique: Portable AP chest Findings: Comparison: None Suboptimal inspiration limits evaluation. Increased interstitial markings throughout both lungs. Bilateral pleural effusions. Bilateral lung bases obscured. Cardiac silhouette partially obscured. Pulmonary vasculature obscured. IMPRESSION: Findings compatible with congestive heart failure with bilateral pleural effusions Underlying atelectasis or pneumonia in either or both lung bases not excludable
--- NOTE | 2016-07-02 10:43 | Diagnostic Imaging Report ---
Indication: Dyspnea Comparison: 06/17/2016 A single view chest radiograph was obtained. Findings: Air bronchograms associated with consolidative opacities involving the lung bases demonstrated. There are probable pleural effusions present bilaterally. The heart is prominent. Mild interstitial vascular prominence are noted. PICC line is in good position. Impression: Bilateral lower lobe consolidation with pneumonia. Bilateral pleural effusions suspected. Mild superimposed congestive heart failure may be present. PICC line in good position. Study received for dictation 07/02/16
--- NOTE | 2016-08-06 08:29 | Consultation ---
DATE OF CONSULTATION: 06/19/2016 VASCULAR SURGERY CONSULTATION CONSULTING PHYSICIAN: Festus Vazquez M.D. REFERRING PHYSICIAN: Philippe Buckley M.D. REASON FOR EVALUATION: Right heel wound and necrosis. HISTORY OF PRESENT ILLNESS: This is a 76-year-old male, who is currently in the ICU with respiratory failure. The patient is reportedly a DNR and DNI per ICU nurse. The patient has dementia. Vascular Surgery is consulted for evaluation of the right heel wound and necrosis. All the history is obtained from the medical records. PAST MEDICAL HISTORY: As above, history of dementia, congestive heart failure, COPD, renal failure, snf resident, severe multilevel calcific arterial occlusive disease, DNR and DNI per nurse and staff. MEDICATIONS: See attached MAR. ALLERGIES: Pregabalin and gabapentin. SOCIAL HISTORY: Unobtainable. FAMILY HISTORY: Unobtainable. REVIEW OF SYSTEMS: Not obtainable as the patient is on a ventilator. PHYSICAL EXAMINATION: VITAL SIGNS: The patient is afebrile at 97.2, heart rate 85, blood pressure 100/64, respirations 24, and he is 96% on FiO2 mask. LUNGS: He has rhonchi bilaterally. HEART: Regular rate and rhythm. ABDOMEN: Soft and nontender. EXTREMITIES: He has palpable pedal pulses. Absent popliteal pulses bilaterally. Does have moderate knee contracture. He has patchy leg skin ulceration and right heel wound and necrosis noted. LABORATORY DATA: Revealed WBC of 9.9, hemoglobin 11.8, and platelet count is 85,000. His sodium is 142, potassium 4.3, chloride 100, BUN is 16, creatinine 1.9, and glucose is 98. IMPRESSION: 1. Severe multilevel calcific arterial occlusive disease with absent popliteal and pedal pulses with marked knee contracture and patchy leg skin ulceration with right heel wound and necrosis. 2. Multiple medical morbidities with respiratory failure, dementia, congestive heart failure, renal failure, and snf resident. PLAN AND RECOMMENDATION: 1. Medical optimization in progress. 2. Continue local wound care per podiatry service. 3. Decubitus and DVT precautions. 4. Pulmonary followup and optimization. 5. Will check leg arterial venous duplex d/w ICU nurse Festus Vazquez M.D. DR: Jemma JOB#: [id number] CC: XIN
== END 2016-06-20 16:10 | disposition expired ==
LOC: EDBD 03:21 → EMR 03:45 → 2W 04:18 → EDBEDREQ 06:17 → 2W 07:06 → ICU 20:09
PROC: 5A09457 Assistance with Respiratory Ventilation, 24-96 Consecutive Hours, Continuous Positive Airway Pressure (ICD-10-PCS; principal; 2016-06-18)
PROC: 05H933Z Insertion of Infusion Device into Right Brachial Vein, Percutaneous Approach (ICD-10-PCS; principal; 2016-06-18)
DX: I13.0 Hypertensive heart and chronic kidney disease with heart failure and stage 1 through stage 4 chronic kidney disease, or unspecified chronic kidney disease (principal); I50.43 Acute on chronic combined systolic (congestive) and diastolic (congestive) heart failure; I21.4 Non-ST elevation (NSTEMI) myocardial infarction; J96.01 Acute respiratory failure with hypoxia; R57.9 Shock, unspecified; J18.9 Pneumonia, unspecified organism; N17.9 Acute kidney failure, unspecified; L89.109 Pressure ulcer of unspecified part of back, unspecified stage; L89.159 Pressure ulcer of sacral region, unspecified stage; E11.40 Type 2 diabetes mellitus with diabetic neuropathy, unspecified; L03.115 Cellulitis of right lower limb; L03.116 Cellulitis of left lower limb; L97.419 Non-pressure chronic ulcer of right heel and midfoot with unspecified severity; M86.8X7 Other osteomyelitis, ankle and foot; L97.329 Non-pressure chronic ulcer of left ankle with unspecified severity; Z51.5 Encounter for palliative care; E11.621 Type 2 diabetes mellitus with foot ulcer; I27.2 Other secondary pulmonary hypertension; N18.9 Chronic kidney disease, unspecified; I73.9 Peripheral vascular disease, unspecified; E03.9 Hypothyroidism, unspecified; I45.10 Unspecified right bundle-branch block; I08.1 Rheumatic disorders of both mitral and tricuspid valves; Z88.8 Allergy status to other drugs, medicaments and biological substances; N20.0 Calculus of kidney; M48.06 Spinal stenosis, lumbar region; I25.5 Ischemic cardiomyopathy; L97.529 Non-pressure chronic ulcer of other part of left foot with unspecified severity; Z66 Do not resuscitate; E11.622 Type 2 diabetes mellitus with other skin ulcer; I25.10 Atherosclerotic heart disease of native coronary artery without angina pectoris; D69.6 Thrombocytopenia, unspecified; R31.9 Hematuria, unspecified
CPT/HCPCS: 36415; 36569; 36600; 71010; 76775; 76937; 80053; 80061; 80202; 81003; 82248; 82436; 82533; 82550; 82553; 82803; 82962; 82977; 83036; 83735; 83880; 83930; 83935; 84100; 84133; 84300; 84439; 84443; 84481; 84484; 84550; 85007; 85025; 85362; 85610; 85730; 86140; 87081; 89050; 93005; 93306; 93925; 93970; 94640; 94660; 94664; 94760; J1815